=== PATIENT | female | born 1955 | race Caucasian/White ===

== ENCOUNTER → 2020-01-11 10:28 | Outpatient (BNVA) | payer OTHER, SELFPAY | PROVIDERS: PCP Internal Medicine; Referring Provider Internal Medicine; Visit Provider Internal Medicine Pulmonary Disease | DX: Z76.89 Persons encountering health services in other specified circumstances (principal) | CPT/HCPCS: 90686 ==

== ENCOUNTER → 2020-01-23 16:24 | Outpatient (BNVA) | payer OTHER, SELFPAY | PROVIDERS: PCP Internal Medicine; Referring Provider Internal Medicine; Visit Provider Surgery | DX: Z76.89 Persons encountering health services in other specified circumstances (principal) ==

== ENCOUNTER 2020-01-28 09:43 | Outpatient (REF) | payer OTHER, SELFPAY ==
--- NOTE | 2020-01-28 09:48 | CT_ITS ---
EXAMINATION: CT CHEST WITHOUT CONTRAST CLINICAL INFORMATION: Pulmonary nodule. COMPARISON: None. TECHNIQUE: Multidetector volumetric CT imaging of the chest was done. Axial MIP volume rendering provided. Sagittal and coronal reformatted images were obtained. This CT examination was performed using dose optimization techniques as appropriate, variously including the following: *Automated exposure control *Adjustment of mA and/or kV according to patient size (this includes techniques or standardized protocols for targeted exams where dose is matched to indication/reason for exam; i.e. extremities or head) *Use of iterative reconstruction technique DLP: 94 mGy-cm FINDINGS: INSTRUCTOR NURSE: Unremarkable chest insurance risk analyst exam. LUNGS: Previously visualized right lower lobe tubular endobronchial 4 mm lesion image 329/7, stable. Right middle lobe 2 mm nodule, likely endobronchial on image 358/7 is stable. There are several additional small nodules visualized. A 3 mm calcified granuloma right lower lobe posterior basal segment image 537/7, a 4 mm nodule right lower lobe image 417/7, a 4 mm intrabronchial nodule left lower lobe image 381/7 appears new. A 2 mm nodule right lower lobe anterobasal segment image 377/7 is new. Mild atelectatic changes right middle lobe image 44/4, lingula image 42/4 and left anterior medial basal segment lower lobe are stable. MEDIASTINUM: The thyroid lobes are symmetrical and normal. The central trachea and the bronchi are widely patent. The coronary arteries are calcified. The heart size is normal. No pericardial effusion seen. The central trachea and bronchi are widely patent. PLEURA: There is no pleural effusion. No pleural mass or thickening. AXILLA: There are small benign lymph nodes seen in the axilla. UPPER ABDOMEN: Visualized liver, spleen, pancreas and bilateral adrenal glands are unremarkable. OSSEOUS STRUCTURES: No lytic or sclerotic process seen. There is mild ventral spondylosis. IMPRESSION: Stable previously seen endobronchial tubular lesion right lower lobe and right middle lobe. New lesions in the right lower lobe and intrabronchial lesion left lower lobe. No abnormal mediastinal adenopathy. Stable atelectasis.
== END 2020-01-28 09:44 | disposition home or self-care (01) ==
LOC: HO.CT 09:43
PROVIDERS: PCP Internal Medicine; Visit Provider Internal Medicine
DX: J98.4 Other disorders of lung (principal)
CPT/HCPCS: 71250

== ENCOUNTER → 2020-02-15 13:26 | Outpatient (BNVA) | payer OTHER, SELFPAY | PROVIDERS: Visit Provider Internal Medicine Pulmonary Disease | DX: Z76.89 Persons encountering health services in other specified circumstances (principal) ==

== ENCOUNTER → 2020-02-25 10:32 | Outpatient (REF) | payer OTHER, SELFPAY ==
--- NOTE | 2020-02-25 10:40 | CA_ITS ---
Transthoracic Echocardiogram Patient (Last, First, Middle): Chantel Hamilton J Gender: Female Date of : 1955 Age: 64 Procedure Date: 02/25/2020 Procedure Type: Transthoracic Echocardiogram Location: OP Height: 167.64 cm Weight: 54.43 kg BSA: 1.61 m2 Heart Rate: bpm BP: 102 / 58 mmHg Merchandise Associate: DSG Referring MD: Harry Coon MD Symptoms: PERICARDIAL EFFUSION Study Quality: Good ECG Rhythm: Sinus Conclusions: - The left ventricular systolic function is normal. The visually estimated ejection fraction is between 60-65%. - Small pericardial effusion, most prominent over the right ventricle. Findings Left Ventricle Normal left ventricular cavity size. The left ventricular systolic function is normal. The visually estimated ejection fraction is between 60-65%. There is no evidence of regional wall motion abnormalities. Right Ventricle Normal right ventricular cavity size and systolic function. Tricuspid Valve There is mild tricuspid valve regurgitation. The pulmonary artery systolic pressure is normal. Pericardium/Pleural There are no definitive echocardiographic findings of tamponade physiology. Small pericardial effusion, most prominent over the right ventricle. Prior Study Comparison No significant change compared to prior study dated: 10/01/2019. Measurements Tricuspid Valve TR Pk Brian: 2.52 TR Pk Grad: 25.00 RA Press: 3.00 RVSP: 28.00 Updated in Other Vendor System with Status of Final Harry Coon MD electronically signed on 02/25/2020 4:58:35 PM with status of Final
== END ==
LOC: HO.CARD 10:32
PROVIDERS: PCP Internal Medicine; Visit Provider Internal Medicine
DX: I31.3 Pericardial effusion (noninflammatory) (principal)
CPT/HCPCS: 93308

== ENCOUNTER 2020-02-29 07:26 | Outpatient (REF) | payer OTHER, SELFPAY ==
[2020-02-29 08:30] VITALS: BP 135/78; PULSE 82; RESP 16; TEMP 36.8; O2SAT 99
[2020-02-29 08:31] VITALS: BMI 19.2
[2020-02-29 09:30] VITALS: BP 134/60; PULSE 71; RESP 16; O2SAT 99
--- NOTE | 2020-02-29 09:35 | P.HPSUR_ITS ---
Pre-Procedural Eval Section B Chief Complaint: Skin Lesion of Face and Right Ear Details of Present Illness: Tender lesion of left evangelical and indeterminate lesion of right pinna Relevant Family History (Specify if Yes): No Relevant Social History: None Present Medications: see Short Stay Collaborative assessment Medical History: No relevant PMH History of Previous Operations: No relevant previous surgery Allergies: Allergies Allergy/AdvReac Type Severity Reaction Status Date / Time acetaminophen [Percocet] Allergy Unknown itchy Verified 02/15/20 13:28 oxycodone [Percocet] Allergy Unknown Unknown Verified 02/15/20 13:28 Review of Systems Sugical H&P ROS: Negative: Constitution, Cardiovascular, Respiratory, Neurological, Psychiatric, Hem-Onc, Allergic/Immunologic, Gastrointestinal, Genitourinary, Musculoskeletal, Endocrine and Eyes/Ears/Nose/Throat and Yes, Specify: Integumentary (Lesions for excision today) Exam Surgical H&P Exam: Normal: HEENT, Normal: Heart and Normal: Extremities, Not Evaluated: Lungs and Not Evaluated: Abdomen and Significant Findings: Skin (Lesions left evangelical and right pinna) Plan Diagnosis/Plan: Unchanged Patient has been examined and remains a candidate for the planned procedure
--- NOTE | 2020-02-29 09:37 | W.PM.OPN ---
Operative Note Operative Note Date of Service: 02/29/20 Narrative: Preoperative diagnosis: Irritated lesion left hoahaoism and indeterminate lesion right pinna postoperative diagnosis: Same Procedure: Excision lesions of left hoahaoism and right pinna Anesthesia: Local 1% lidocaine with epinephrine 5 cc Estimated blood loss: 5 cc Specimens: Lesions of left hoahaoism and right pinna Immediate complications: None Indications: This is a 64-year-old female who has developed an indeterminate pigmented lesion along the mid aspect of the right pinna. She also has a tender lesion of the left hoahaoism. Excision is planned. She is familiar with the technique and risks of infection bleeding and scarring. Procedure in detail: Time-out procedure was performed. She was positioned supine with her head initially turned toward the right. The hair overlying and surrounding the lesion on the left hoahaoism was trimmed with clippers and the area was prepped with Betadine solution and draped sterilely. Skin and subcutaneous tissues were infiltrated with local anesthetic. An elliptical incision was made surrounding the lesion including a narrow margin of normal-appearing skin. The incision was carried into the superficial subcutaneous tissues and the lesion was excised at that level. The wound was closed with interrupted sutures of 6 0 nylon. Final incision length was 1.8 cm. Bacitracin ointment and a dry sterile dressing were applied. She then turned to the left and the right pinna was prepped with Betadine solution and was draped sterilely. Skin and subcutaneous tissues underlying and surrounding the lesion at the margin of the yet pinna were infiltrated with local anesthetic. The lesion was excised elliptically with a narrow margin of normal-appearing skin. Excision was carried to the it superficial subcutaneous tissues and the lesion was excised at that level. The wound was closed with interrupted sutures of 6 0 nylon and bacitracin and a light adhesive dressing were applied. Final incision length was 0.7 cm. She tolerated the procedure well. She will keep the areas dry and covered for 24 hours, will use acetaminophen as needed for pain, and will follow up in the office as scheduled on March 11 for suture removal. If desired, she will call the office for an appointment to be seen on March 05 for removal of the sutures in pinna. She understands that the sutures in the left hoahaoism area would not be removed at that time.
== END 2020-02-29 07:27 | disposition home or self-care (01) ==
LOC: HO.MS 07:26
PROVIDERS: PCP Internal Medicine; Visit Provider Surgery
DX: D23.21 Other benign neoplasm of skin of right ear and external auricular canal (principal); L98.9 Disorder of the skin and subcutaneous tissue, unspecified
CPT/HCPCS: 11442; 11440; 88305

== ENCOUNTER → 2020-03-03 13:54 | Outpatient (BNVA) | payer OTHER, SELFPAY | PROVIDERS: PCP Internal Medicine; Referring Provider Internal Medicine; Visit Provider Internal Medicine | DX: Z76.89 Persons encountering health services in other specified circumstances (principal) ==

== ENCOUNTER → 2020-03-11 15:56 | Outpatient (BNVA) | payer OTHER, SELFPAY | PROVIDERS: PCP Internal Medicine; Referring Provider Internal Medicine; Visit Provider Surgery | DX: Z76.89 Persons encountering health services in other specified circumstances (principal) ==

== ENCOUNTER 2020-06-27 12:55 | Outpatient (REF) | payer OTHER, SELFPAY ==
--- NOTE | ~2020-06-27 | CT_ITS ---
EXAMINATION: CT CHEST WITHOUT CONTRAST CLINICAL INFORMATION: Pulmonary nodule. COMPARISON: None TECHNIQUE: Multidetector volumetric CT imaging of the chest was done. Axial MIP volume rendering provided. Sagittal and coronal reformatted images were obtained. This CT examination was performed using dose optimization techniques as appropriate, variously including the following: *Automated exposure control *Adjustment of mA and/or kV according to patient size (this includes techniques or standardized protocols for targeted exams where dose is matched to indication/reason for exam; i.e. extremities or head) *Use of iterative reconstruction technique DLP: 95 mGy-cm FINDINGS: BEEF TRIMMER: Unremarkable. LUNGS: The lungs are well-expanded and clear. There is a 2 mm pleural-based nodule left upper lobe axial image 86/7, 2 mm endobronchial lesion right lower lobe image 292/7, 2 mm nodule right middle lobe axial image 262/7, 2 mm nodule right middle lobe image 315/7, 4 mm nodule right lower lobe axial image 370/7, triangular density in the lingula likely part of atelectasis axial image 371/7, 4 mm nodule right lower lobe axial image 386/7, focal atelectatic changes right middle lobe laterally, 3 mm calcified nodule right lower lobe axial image 468/7. There are no new nodules visualized. No consolidation, mass or ground-glass density. MEDIASTINUM: The thyroid lobes are symmetric and normal. The central trachea and bronchi are widely patent. Heart size and the great vessels are normal caliber. There are no abnormal size mediastinal lymph nodes. There are coronary artery calcifications present. There is no pericardial effusion seen. PLEURA: There is no pleural effusion. No pleural mass or thickening. AXILLA: There are small shotty lymph nodes seen in the axilla. The chest wall appears unremarkable. UPPER ABDOMEN: Visualized liver, spleen, pancreas, and bilateral adrenal glands are unremarkable. OSSEOUS STRUCTURES: There is no lytic or sclerotic process seen. There is mild ventral spondylosis. CT/CT chest wo con IMPRESSION: Multiple bilateral pulmonary nodules, some of the nodules are endobronchial and are stable. There are small calcified nodule right lower lobe, stable. No new pulmonary nodules seen. No abnormal mediastinal adenopathy. Lingular and right middle lobe atelectasis is stable.
== END 2020-06-27 12:56 | disposition home or self-care (01) ==
LOC: HO.CT 12:55
PROVIDERS: PCP Internal Medicine; Visit Provider Internal Medicine Pulmonary Disease
DX: R91.8 Other nonspecific abnormal finding of lung field (principal)
CPT/HCPCS: 71250

== ENCOUNTER → 2020-08-27 16:13 | Outpatient (BNVA) | payer OTHER, SELFPAY | PROVIDERS: PCP Internal Medicine; Visit Provider Internal Medicine Pulmonary Disease ==

== ENCOUNTER → 2020-10-27 14:38 | Outpatient (BNVA) | payer OTHER, SELFPAY | PROVIDERS: PCP Internal Medicine; Referring Provider Internal Medicine; Visit Provider Physician Assistant ==

== ENCOUNTER 2020-10-31 11:36 | Outpatient (REF) | payer OTHER, SELFPAY ==
[2020-10-31 12:21] LABS: MANUAL DIFF FLAG NO
[2020-10-31 12:31] LABS: Basophils Percent Auto 0.8 % (0-2); Eosinophils Absolute Auto 0.1 X10*3/uL (0.0-0.4); Eosinophils Percent Auto 2.5 % (0-4); Hematocrit 38.3 % (37-47); Hemoglobin 12.9 g/dl (12.0-16.0); Imm Gran Abs Auto 0.02 X10*3/uL (0.00-0.03); Imm Gran Pct Auto 0.6 % (0.0-0.4); Lymphocytes Absolute Auto 1.1 X10*3/uL (1.2-4.9); Lymphocytes Percent Auto 29.2 % (20-40); Mean Corpuscular HGB Conc 33.7 g/dl (31.0-35.0); Mean Corpuscular Hemoglobin 31.3 pg (27.0-33.0); Mean Platelet Volume 9.3 fL (9.4-12.3); Monocytes Absolute Auto 0.4 X10*3/uL (0.1-1.2); Monocytes Percent Auto 9.9 % (2-11); Neutrophils Absolute Auto 2.1 X10*3/uL (2.0-8.3); Platelet Count 245 X10*3/uL (160-400); Red Blood Count 4.12 X10*6/uL (4.20-5.50); Red Cell Distribution Width 12.7 % (11.0-16.0); White Blood Count 3.6 X10*3/uL (4.8-10.8)
[2020-10-31 12:43] LABS: Alanine Aminotransferase 14 U/L (0-31); Albumin Level 4.8 g/dL (3.5-5.0); Alkaline Phosphatase 81 U/L (39-117); Anion Gap 12 (12-20); Aspartate Amino Transferase 17 U/L (5-31); Bilirubin Total 0.7 mg/dL (0.0-1.0); Blood Urea Nitrogen 17 mg/dL (9-16); Calcium 10.1 mg/dL (8.4-10.2); Carbon Dioxide 24 mmol/L (22-29); Chloride 109 mmol/L (96-108); Cholesterol 227 mg/dL; Estimated Glomerular Filt Rate 56; Glucose Random 98 mg/dL (60-115); HDL Cholesterol 62 mg/dL; LDL Cholesterol Calculated 146 mg/dl; Potassium 4.9 mmol/L (3.3-5.1); Sodium 140 mmol/L (135-145); Triglycerides 96 mg/dL
[2020-10-31 12:59] LABS: Free T4 (Free Thyroxine) 0.89 ng/dL (0.71-1.85); Thyroid Stimulating Hormone 1.12 uIU/mL (0.32-4.0); Vitamin D 25-OH Total 28.1 ng/mL (>30)
[2020-10-31 13:29] LABS: Vitamin B12 263 pg/mL (200-900)
== END 2020-10-31 11:37 | disposition home or self-care (01) ==
LOC: HO.LAB 11:36
PROVIDERS: Physician Assistant; PCP Internal Medicine; Visit Provider Internal Medicine
DX: K59.09 Other constipation (principal); K62.5 Hemorrhage of anus and rectum; E78.00 Pure hypercholesterolemia, unspecified
CPT/HCPCS: 36415; 80053; 80061; 82306; 82607; 82746; 84439; 84443; 85025

== ENCOUNTER 2020-12-09 10:56 | Day surgery (SDC) | payer OTHER, SELFPAY ==
[2020-12-09 11:55] VITALS: BP 124/60; PULSE 65; RESP 16; TEMP 36; O2SAT 100; BMI 19.0
--- NOTE | 2020-12-09 11:59 | MHC.SHP ---
Pre-Procedural Eval Section A Date of Service: 12/09/20 The patient is an INPATIENT: No The History & Physical has been completed within 30 days and I have reviewed it.: No Section B Chief Complaint: reflux disease,change in bowel habit Details of Present Illness: Colon cancer screening, hx of colon polyps, GERD, dysphagia, history of gastric ulcers Relevant Family History (Specify if Yes): No Relevant Social History: None Present Medications: see Short Stay Collaborative assessment Medical History: Significant History (Blind left eye Breast cancer Carotid stenosis, right Degenerative disc disease, cervical GERD (gastroesophageal reflux disease) Hypercholesterolemia Left renal stone Migraine Pericardial effusion Thyroid nodule) History of Previous Operations: Relevant previous surgery/procedure and date(s) (H/O lumpectomy H/O lymph node biopsy History of lobectomy of thyroid History of shoulder surgery History of tonsillectomy History of vaginal hysterectomy) Allergies: Allergies Allergy/AdvReac Type Severity Reaction Status Date / Time acetaminophen [Percocet] Allergy Unknown itchy Verified 10/27/20 15:00 oxycodone [Percocet] Allergy Unknown Unknown Verified 10/27/20 15:00 Review of Systems Sugical H&P ROS: Negative: Constitution, Cardiovascular and Respiratory and Yes, Specify: Gastrointestinal (GERD, dysphagia) Exam Surgical H&P Exam: Normal: Heart, Normal: Lungs, Normal: Extremities and Normal: Abdomen Plan Diagnosis/Plan: Unchanged I have reviewed the history and physical and performed a pertinent physical examination on my patient. No changes have occurred unless specified.
--- NOTE | 2020-12-09 13:09 | PM.OP ---
Brief Operative Note Date of Service: 12/09/20 Pre-op diagnosis: GERD, dysphagia, hx of , colon cancer screening, chronic constipation Post-op diagnosis: other (GERD, dysphagia, gastritis, gastric ulcer, diverticulosis) Procedure: FLEXIBLE TRANSORAL UPPER GASTROINTESTINAL ENDOSCOPY WITH BIOPSIES AND ESOPHAGEAL BALLOON DILATION AND COLONOSCOPY TILL CECUM UPPER ENDOSCOPY Consent: Indications for the procedure and potential complications of bleeding, perforation, reaction to medications and missed diagnosis were discussed with the patient and informed consent was obtained. Instrument: Olympus GIF H 190 mid size upper endoscope Monitoring: Vital signs and clinical assessment, continuous EKG monitoring, Pulse oximetry, Carbon Dioxide monitoring and blood pressure monitoring were done throughout the procedure. Procedure: The patient was placed in the left lateral decubitis position and pre-procedure medications were administered and a bite block was placed. The endoscope was inserted into the mouth and advanced under direct vision to the third part of duodenum. A careful inspection was made as the upper endoscope was withdrawn including a retroflexed examination of the proximal stomach; Findings and interventions are described below. Findings: Larynx: Normal Esophagus: Tortuous esophagus with increased tertiary contractions without stricture or ring. GE junction at 38 cms. No esophagitis or Worthy's. Esophageal balloon dilation was performed with 18 & 19 mm CRE balloon x 60 seconds at each level Stomach: A 5-6 mm chronic appearing ulcer in the antrum along the lesser curvature - biopsied. Mild gastric erythema with multiple chronic appearing antral erosion - Biopsies were obtained. Grade 2 flap valve on retroflexed examination of the cardia. Duodenum: Normal bulb and descending duodenum. Biopsies were obtained from 3rd part of duodenum to check for celiac sprue Intervention: Biopsies and balloon dilation to 19 mm (54 F) as noted above COLONOSCOPY PROCEDURE NOTE Consent: Indications for the procedure and potential complications of bleeding, perforation, reaction to medications and missed diagnosis were discussed with the patient and informed consent was obtained. Instrument: Olympus PCF H 190 L variable stiffness pediatric colonoscope Monitoring: Vital signs and clinical assessment, intermittent blood pressure monitoring, continuous EKG monitoring, Pulse oximetry and Carbon Dioxide monitoring were done throughout the procedure. Colon withdrawl time was 20 minutes. Procedure: The patient was placed in the left lateral decubitis position and pre-procedure medications were administered. After a digital rectal examination of the ano-rectum, the video colonoscope was inserted into the rectum and advanced through the colon to the cecum. The colonoscope was slowly withdrawn in a retrograde panoramic fashion and the colon mucosa was carefully examined including a retroflexed view of the rectum. Findings and interventions are described below. Procedure Difficulty: Colon was long and tortuous and there was some loop formation - no manuvers were required Findings: Terminal Ileum: Not evaluated Cecum: Normal Ascending Colon: Normal Transverse Colon: Normal Descending Colon: Normal Sigmoid Colon: Moderate diverticulosis Rectum: Normal Ano-rectum: Holly-anal skin tags Colon preparation: Good after copious irrigation Impression and Post Procedure Diagnosis: Endoscopy Findings: ESOPHAGUS: Tortuous esophagus with increased tertiary contractions without stricture or ring - dysphagia likely due to esophageal motility disorder. Empiric esophageal balloon dilation was performed with 18 & 19 mm CRE balloon x 60 seconds at each level STOMACH: A 5-6 mm chronic appearing ulcer in the antrum along the lesser curvature - biopsied. Recurrent gastric ulcer likely due to Ibuprofen use. Mild gastric erythema with multiple chronic appearing antral erosion - Biopsies were obtained. Colonoscopy Findings: No polyps were detected Moderate diverticulosis seen in the sigmoid colon Plan: Await pathology results Patient has an appointment on 01/05/21 in the GI Clinic with K[facility] Escamilla . Repeat Colonoscopy in 5 years due to hx of adenomatous colon polyps. Above findings were reviewed with the patient and diverticulosis handout was given in the discharge area. Patient was advised to stop Ibuprofen and increase Omeprazole to twice daily for 3 months. Surgeon: Enrique Evans MD Anesthesia: MAC (Dr Barajas) Was an Linen Supply Load Builder used for this Procedure?: Yes Linen Supply Load Builder: Drake Sesay Estimated blood loss (mL): 0 Pathology: other (A- SMALL BOWEL BXS R/O CELIAC B- GASTRIC ULCER BXS C- GASTRIC ANTRUM BXS R/O H. PYLORI) Condition: stable Disposition: PACU
[2020-12-09 13:50] VITALS: BP 97/53; PULSE 71; RESP 16; TEMP 36.2; O2SAT 98
--- NOTE | 2020-12-09 13:50 | W.PM.OPN ---
Operative Note Operative Note Date of Service: 12/09/20 Narrative: Pre-op diagnosis:?GERD, dysphagia, hx of , colon cancer screening, chronic constipation Post-op diagnosis:?other (GERD, dysphagia, gastritis, gastric ulcer, diverticulosis) Procedure:? FLEXIBLE TRANSORAL UPPER GASTROINTESTINAL ENDOSCOPY WITH BIOPSIES AND ESOPHAGEAL BALLOON DILATION AND COLONOSCOPY TILL CECUM UPPER ENDOSCOPY Consent:?Indications for the procedure and potential complications of bleeding, perforation, reaction to medications and missed diagnosis were discussed with the patient and informed consent was obtained. Instrument:?Olympus GIF H 190 mid size upper endoscope Monitoring: Vital signs and clinical assessment, continuous EKG monitoring, Pulse oximetry, Carbon Dioxide monitoring and blood pressure monitoring were done throughout the procedure. Procedure:?The patient was placed in the left lateral decubitis position and pre-procedure medications were administered and a bite block was placed. The endoscope was inserted into the mouth and advanced under direct vision to the third part of duodenum. A careful inspection was made as the upper endoscope was withdrawn including a retroflexed examination of the proximal stomach; Findings and interventions are described below. Findings: Larynx:??Normal Esophagus:?Tortuous esophagus with increased tertiary contractions without stricture or ring.? GE junction at 38 cms.? No esophagitis or Worthy's. Esophageal balloon dilation was performed with 18 & 19 mm CRE balloon x 60 seconds at each level Stomach:?A 5-6 mm chronic appearing ulcer in the antrum along the lesser curvature - biopsied.? Mild gastric erythema with multiple chronic appearing antral erosion - Biopsies were obtained. Grade 2 flap valve on retroflexed examination of the cardia. Duodenum:?Normal bulb and descending duodenum.? Biopsies were obtained from 3rd part of duodenum to check for celiac sprue Intervention:?Biopsies and balloon dilation to 19 mm (54 F) as noted above COLONOSCOPY PROCEDURE NOTE Consent:?Indications for the procedure and potential complications of bleeding, perforation, reaction to medications and missed diagnosis were discussed with the patient and informed consent was obtained. Instrument:?Olympus PCF H 190 L variable stiffness pediatric colonoscope Monitoring:?Vital signs and clinical assessment, intermittent blood pressure monitoring, continuous EKG monitoring, Pulse oximetry and Carbon Dioxide monitoring were done throughout the procedure. Colon withdrawl time was 20 minutes. Procedure:?The patient was placed in the left lateral decubitis position and pre-procedure medications were administered. After a digital rectal examination of the ano-rectum, the video colonoscope was inserted into the rectum and advanced through the colon to the cecum. The colonoscope was slowly withdrawn in a retrograde panoramic fashion and the colon mucosa was carefully examined including a retroflexed view of the rectum. Findings and interventions are described below. Procedure Difficulty:?Colon was long and tortuous and there was some loop formation - no manuvers were required Findings: Terminal Ileum: Not evaluated Cecum:? Normal Ascending Colon:??Normal Transverse Colon:??Normal Descending Colon:? Normal Sigmoid Colon:??Moderate diverticulosis Rectum:??Normal Ano-rectum:? Holly-anal skin tags Colon preparation:? Good after copious irrigation Impression and Post Procedure Diagnosis: Endoscopy Findings: ESOPHAGUS: Tortuous esophagus with increased tertiary contractions without stricture or ring - dysphagia likely due to esophageal motility disorder. Empiric esophageal balloon dilation was performed with 18 & 19 mm CRE balloon x 60 seconds at each level STOMACH:? A 5-6 mm chronic appearing ulcer in the antrum along the lesser curvature - biopsied.? Recurrent gastric ulcer likely due to Ibuprofen use. Mild gastric erythema with multiple chronic appearing antral erosion - Biopsies were obtained. Colonoscopy Findings: No polyps were detected Moderate diverticulosis seen in the sigmoid colon Plan: Await pathology results Patient has an appointment on 01/05/21 in the GI Clinic with [facility] Escamilla . Repeat Colonoscopy in 5 years due to hx of adenomatous colon polyps. Above findings were reviewed with the patient and? diverticulosis handout was given in the discharge area.? Patient was advised to stop Ibuprofen and increase Omeprazole to twice daily for 3 months. Surgeon:?Enrique Evans MD Anesthesia:?MAC (Dr Barajas) Was an Hydraulic Specialist used for this Procedure?:?Yes Hydraulic Specialist:?Drake Sesay Estimated blood loss (mL):?0 Pathology:?other (A- SMALL BOWEL BXS? R/O CELIAC? B- GASTRIC ULCER BXS? C- GASTRIC ANTRUM BXS ? R/O H. PYLORI) Condition:?stable Disposition:?PACU
[2020-12-09 14:05] VITALS: BP 107/56; PULSE 61; RESP 16; O2SAT 99
[2020-12-09 14:14] VITALS: BP 128/64; PULSE 56; RESP 16; TEMP 36.3; O2SAT 99
== END 2020-12-09 14:34 ==
LOC: HO.SSS 10:57
PROVIDERS: PCP Internal Medicine; Visit Provider Internal Medicine Gastroenterology
PROC: (CPT 45378; principal; 2020-12-09 12:10)
DX: Z12.11 Encounter for screening for malignant neoplasm of colon (principal); K57.30 Diverticulosis of large intestine without perforation or abscess without bleeding; K56.2 Volvulus; K64.4 Residual hemorrhoidal skin tags; K59.09 Other constipation; R13.10 Dysphagia, unspecified; K29.70 Gastritis, unspecified, without bleeding; K25.9 Gastric ulcer, unspecified as acute or chronic, without hemorrhage or perforation; K21.9 Gastro-esophageal reflux disease without esophagitis; Z79.899 Other long term (current) drug therapy
CPT/HCPCS: 45378; 43239; 43249; 88305; 88342; C1726

== ENCOUNTER → 2021-01-05 14:14 | Outpatient (BNVA) | payer MEDICARE, SELFPAY | PROVIDERS: PCP Internal Medicine; Visit Provider Physician Assistant | DX: Z13.89 Encounter for screening for other disorder (principal) | CPT/HCPCS: Q3014 ==

== ENCOUNTER → 2021-02-13 10:01 | Outpatient (BNVA) | payer MEDICARE, SELFPAY | PROVIDERS: PCP Internal Medicine; Referring Provider Internal Medicine; Visit Provider Surgery | DX: C50.919 Malignant neoplasm of unspecified site of unspecified female breast (principal) | CPT/HCPCS: 99212 ==

== ENCOUNTER → 2021-02-20 10:29 | Outpatient (REF) | payer MEDICARE, SELFPAY ==
--- NOTE | 2021-02-20 10:41 | HM_ITS ---
Conclusion: 1. Patient was monitored for total period of 3 days. 2. Baseline rhythm is normal sinus rhythm with average heart rate 69 beats per minute 3. No significant pauses or bradycardia noted 4. Multiple short burst of supraventricular ectopics longest however lasting 19 beats at 140-150 beats per minute 5. No sustained atrial fibrillation 6. Total of 1592 PACs accounting for 0.54% of total burden accounted for occasional PACs 7. No patient reported symptoms MTDD
--- NOTE | 2021-02-20 10:41 | CA_ITS ---
Transthoracic Echocardiogram Patient (Last, First, Middle): Chantel Hamilton J Gender: Female Date of : 1955 Age: 65 Procedure Date: 02/20/2021 Procedure Type: Transthoracic Echocardiogram Location: OP Height: 167.64 cm Weight: 53.07 kg BSA: 1.59 m2 Heart Rate: bpm BP: 101 / 61 mmHg Front End Driver: DSGuadalupe Referring MD: Harry Coon MD Symptoms: I31.3 - Pericardial effusion (noninflammatory) Study Quality: Fair ECG Rhythm: Sinus Conclusions: - The left ventricular systolic function is normal. The calculated ejection fraction is 61% by biplane method. - No obvious valvular pathology seen on this study. Findings Left Ventricle Normal left ventricular cavity size. There is normal left ventricular wall thickness. The left ventricular systolic function is normal. The calculated ejection fraction is 61% by biplane method. There is no evidence of regional wall motion abnormalities. Diastolic function is normal for age. Right Ventricle Normal right ventricular cavity size and systolic function. Atria Both atria are normal in size. Aortic Valve There is a normal trileaflet aortic valve. There is no aortic valve stenosis. There is trace (trivial) aortic valve regurgitation. Mitral Valve The mitral valve appears normal. There is trace mitral valve regurgitation. There is no mitral valve stenosis. Pulmonic Valve The pulmonic valve was not well visualized. Tricuspid Valve Normal tricuspid valve structure. There is mild tricuspid valve regurgitation. The pulmonary artery systolic pressure is normal. Great Vessels The aortic annulus and asc aorta are normal in size. Venous The inferior vena cava is normal in size and collapses greater than 50% with inspiration. Pericardium/Pleural There are no definitive echocardiographic findings of tamponade physiology. Small pericardial effusion, most prominent posteriorly and over right ventricle. Prior Study Comparison No significant change compared to prior study dated: 02/25/2020. Recommendations, Care & Conclusions No obvious valvular pathology seen on this study. Measurements 2D Linear Measurements IVSd: 0.78 0.6-0.9/0.6-1.0 cm LVIDd: 4.16 3.9-5.3/4.2-5.9 cm LVIDd Index: 2.62 2.4-3.2/2.2-3.1 cm/m2 LVIDs: 2.66 2.0-3.6 cm LVPWd: 0.88 0.7-1.1 cm Ao Root: 3.20 2.1-3.5 cm LA Diam: 2.40 2.7-3.8/3.0-4.0 cm LAIDs Index: 1.51 1.5-2.3 cm/m2 LV Mass: 130.47 67-162/88-224 g LV Mass Index: 82.06 43-95/49-115 g/m2 LVOT Diam: 1.90 3.0+(-)1.3 cm 2D Systolic Function EF 4C: 56.00 >55% EF 2C: 61.20 >55% EF BiP: 61.30 >55% Mitral Valve MV Pk E: 0.86 MV PK A: 0.56 MV Decel Time: 186.00 E/A: 1.50 PHT: 55.00 MVA PHT: 4.00 Decel Bullitt: 4.64 Aortic Valve AoV Pk Brian: 1.11 AoV Pk Grad: 5.00 LVOT LVOT Pk Brian: 0.88 LVOT Mn Brian: 0.58 LVOT VTI: 0.18 LVOT Pk Grad: 3.00 LVOT Mn Grad: 2.00 LVOT Diam: 1.90 LVOT Area: 2.84 Diastolic Function MV Pk E: 0.86 MV Pk A: 0.56 E/A: 1.50 Right Ventricle TAPSE (mm): 2.04 Tricuspid Valve TR Pk Brian: 2.27 TR Pk Grad: 21.00 RVSP: 24.00 Great Vessels Aorta Ao Root-2D: 3.20 2.0-3.7 cm Ao Asc: 2.70 2.1-3.4 cm Ao Arch: 2.70 Updated in Other Vendor System with Status of Final Harry Coon MD electronically signed on 02/21/2021 1:46:02 PM with status of Final
== END ==
LOC: HO.CARD 10:29
PROVIDERS: PCP Internal Medicine; Visit Provider Internal Medicine
DX: R00.2 Palpitations (principal); I31.3 Pericardial effusion (noninflammatory)
CPT/HCPCS: 93242; 93306

== ENCOUNTER → 2021-03-26 14:41 | Outpatient (BNVA) | payer MEDICARE, SELFPAY | PROVIDERS: PCP Internal Medicine; Visit Provider Internal Medicine Pulmonary Disease | DX: J43.9 Emphysema, unspecified (principal); R91.8 Other nonspecific abnormal finding of lung field | CPT/HCPCS: 99212 ==

== ENCOUNTER → 2021-04-06 12:28 | Outpatient (BNVA) | payer MEDICARE, SELFPAY | PROVIDERS: PCP Internal Medicine; Referring Provider Internal Medicine; Visit Provider Internal Medicine | DX: I31.3 Pericardial effusion (noninflammatory) (principal); I49.1 Atrial premature depolarization; R07.2 Precordial pain | CPT/HCPCS: 93005; 99212 ==

== ENCOUNTER 2021-06-12 09:55 | Outpatient (REF) | payer MEDICARE, SELFPAY ==
[2021-06-12 10:22] LABS: MANUAL DIFF FLAG NO
[2021-06-12 10:51] LABS: Basophils Percent Auto 0.9 % (0-2); Eosinophils Absolute Auto 0.1 X10*3/uL (0.0-0.4); Eosinophils Percent Auto 2.8 % (0-4); Hematocrit 37.3 % (37.0-47.0); Hemoglobin 12.3 g/dl (12.0-16.0); Imm Gran Abs Auto 0.01 X10*3/uL (0.00-0.03); Imm Gran Pct Auto 0.3 % (0.0-0.4); Lymphocytes Absolute Auto 1.1 X10*3/uL (1.2-4.9); Lymphocytes Percent Auto 32.5 % (20-40); Mean Corpuscular Hemoglobin 30.7 pg (27.0-33.0); Mean Platelet Volume 8.9 fL (9.4-12.3); Monocytes Absolute Auto 0.4 X10*3/uL (0.1-1.2); Monocytes Percent Auto 11.4 % (2-11); Neutrophils Absolute Auto 1.8 x10*3/uL (2.0-8.3); Neutrophils Percent Auto 52.1 % (45-73); Platelet Count 233 X10*3/uL (160-400); Red Blood Count 4.01 X10*6/uL (4.20-5.50); Red Cell Distribution Width 12.6 % (11.0-16.0); White Blood Count 3.5 X10*3/uL (4.8-10.8)
[2021-06-12 11:12] LABS: Anion Gap 10 (12-20); Blood Urea Nitrogen 15 mg/dL (9-16); Calcium 9.8 mg/dL (8.4-10.2); Carbon Dioxide 25 mmol/L (22-29); Chloride 110 mmol/L (96-108); Estimated Glomerular Filt Rate > 60; Glucose Random 83 mg/dL (60-115); Potassium 4.3 mmol/L (3.3-5.1); Sodium 141 mmol/L (135-145)
[2021-06-12 11:28] LABS: Thyroid Stimulating Hormone 1.88 uIU/mL (0.32-4.0)
== END 2021-06-12 09:56 | disposition home or self-care (01) ==
LOC: HO.LAB 09:55
PROVIDERS: PCP Internal Medicine; Visit Provider Internal Medicine
DX: R07.2 Precordial pain (principal); E78.00 Pure hypercholesterolemia, unspecified
CPT/HCPCS: 36415; 80048; 84443; 85025

== ENCOUNTER 2021-07-08 09:53 | Outpatient (REF) | payer MEDICARE, SELFPAY ==
--- NOTE | ~2021-07-08 | CT_ITS ---
EXAMINATION: CT CHEST WITHOUT CONTRAST CLINICAL INFORMATION: Pulmonary nodule COMPARISON: CT chest 06/27/2020 TECHNIQUE: Multidetector volumetric CT imaging of the chest was done. Axial MIP volume rendering provided. Sagittal and coronal reformatted images were obtained. This CT examination was performed using dose optimization techniques as appropriate, variously including the following: *Automated exposure control *Adjustment of mA and/or kV according to patient size (this includes techniques or standardized protocols for targeted exams where dose is matched to indication/reason for exam; i.e. 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 LUNGS: The lungs are hyperinflated. There are scattered 1 mm calcifications both upper lobes. Previously seen tumor subpleural nodule left upper lobe is likely thickening along the major fissure at the pleural junction on axial image 110/7, 1 mm endobronchial lesions in the right middle lobe bronchus on axial image 266/7, 2 mm nodule right middle lobe axial image 347/7 1 mm endobronchial nodule left lower lobe axial image 390/7, 4 nodule peripherally based right lower lobe axial image 439/7, and endobronchial 2 mm lesions left lower lobe axial 399/7, 3 and a calcified nodule right lower lobe CP angle image 554/7. Focal atelectatic changes seen in lingula and right middle lobe. MEDIASTINUM: The thyroid lobes are symmetric and normal. The central trachea and the bronchi are widely patent. Heart size and the great vessels are normal caliber. No pericardial effusion seen. There is trace coronary artery calcifications. No abnormal size mediastinal or hilar lymph nodes seen. PLEURA: There is no pleural effusion. No pleural mass or thickening. AXILLA: There are small shotty bilateral axillary lymph nodes. The largest left axillary lymph node is fine in short axis on axial image 14/3. The chest wall is unremarkable. UPPER ABDOMEN: Unremarkable. OSSEOUS STRUCTURES: Visualized liver, spleen, pancreas are unremarkable. No gross bony abnormality seen. CT/CT chest wo con IMPRESSION: Hyperinflated lungs with multiple small pulmonary nodules and one minimally calcified nodules or granuloma and both upper lobes and left lower lobe. No new nodules visualized. Focal atelectatic changes in the lingula and right middle lobe are stable. Recommend follow-up in 18-24 months. Fleischner guidelines were followed.
== END 2021-07-08 09:54 | disposition home or self-care (01) ==
LOC: HO.CT 09:53
PROVIDERS: PCP Internal Medicine; Visit Provider Internal Medicine Pulmonary Disease
DX: R91.8 Other nonspecific abnormal finding of lung field (principal)
CPT/HCPCS: 71250

== ENCOUNTER → 2021-07-15 11:54 | Outpatient (BNVA) | payer MEDICARE, SELFPAY | PROVIDERS: PCP Internal Medicine; Referring Provider Internal Medicine; Visit Provider Physician Assistant | DX: K59.09 Other constipation (principal); K21.9 Gastro-esophageal reflux disease without esophagitis; R13.10 Dysphagia, unspecified | CPT/HCPCS: 99212 ==

== ENCOUNTER → 2021-07-28 13:41 | Outpatient (BNVA) | payer MEDICARE, SELFPAY | PROVIDERS: PCP Internal Medicine; Referring Provider Internal Medicine; Visit Provider Internal Medicine | DX: I31.3 Pericardial effusion (noninflammatory) (principal); I49.1 Atrial premature depolarization; I25.10 Atherosclerotic heart disease of native coronary artery without angina pectoris | CPT/HCPCS: 99212 ==

== ENCOUNTER 2021-10-08 13:04 | Outpatient (REF) | payer MEDICARE, SELFPAY ==
--- NOTE | ~2021-10-08 | XR_ITS ---
EXAMINATION: XR LUMBOSACRAL SPINE CLINICAL INFORMATION: G62.9 - Polyneuropathy, unspecified COMPARISON: Lumbar radiographs 12/12/2015. CT abdomen and pelvis 03/31/2018. TECHNIQUE: Three views of the lumbosacral spine. FINDINGS: Normal lumbar segmentation with 5 nonrib-bearing lumbar vertebrae of normal height and normal lumbar lordosis. There is mild dextrocurvature upper lumbar spine similar to prior exam 2016. No interval vertebral compression, spondylolisthesis, destructive process. No interval disc narrowing or erosive changes. The SI joints and visualized sacrum are unremarkable. XR/XR lumbar spine 2-3V IMPRESSION: -No vertebral compression, spondylolisthesis, or disc narrowing.
[2021-10-08 14:08] LABS: MANUAL DIFF FLAG NO
[2021-10-08 14:21] LABS: Basophils Percent Auto 0.9 % (0-2); Eosinophils Absolute Auto 0.1 X10*3/uL (0.0-0.4); Eosinophils Percent Auto 1.9 % (0-4); Hematocrit 38.2 % (37.0-47.0); Hemoglobin 12.8 g/dl (12.0-16.0); Imm Gran Abs Auto 0.01 X10*3/uL (0.00-0.03); Imm Gran Pct Auto 0.2 % (0.0-0.4); Lymphocytes Absolute Auto 1.1 X10*3/uL (1.2-4.9); Lymphocytes Percent Auto 25.9 % (20-40); Mean Corpuscular HGB Conc 33.5 g/dl (31.0-35.0); Mean Corpuscular Hemoglobin 30.6 pg (27.0-33.0); Mean Corpuscular Volume 91.4 fL (80.0-98.0); Mean Platelet Volume 8.9 fL (9.4-12.3); Monocytes Absolute Auto 0.5 X10*3/uL (0.1-1.2); Monocytes Percent Auto 10.5 % (2-11); Neutrophils Absolute Auto 2.6 x10*3/uL (2.0-8.3); Neutrophils Percent Auto 60.6 % (45-73); Platelet Count 232 X10*3/uL (160-400); Red Blood Count 4.18 X10*6/uL (4.20-5.50); Red Cell Distribution Width 13.1 % (11.0-16.0); White Blood Count 4.3 X10*3/uL (4.8-10.8)
[2021-10-08 14:46] LABS: Alanine Aminotransferase 14 U/L (0-31); Albumin Level 4.8 g/dL (3.5-5.0); Alkaline Phosphatase 74 U/L (39-117); Anion Gap 11 (12-20); Aspartate Amino Transferase 16 U/L (5-31); Bilirubin Total 0.5 mg/dL (0.0-1.0); Blood Urea Nitrogen 12 mg/dL (9-16); Calcium 9.8 mg/dL (8.4-10.2); Carbon Dioxide 23 mmol/L (22-29); Chloride 111 mmol/L (96-108); Cholesterol 258 mg/dL; Estimated Glomerular Filt Rate > 60; Glucose Random 102 mg/dL (60-115); HDL Cholesterol 64 mg/dL; LDL Cholesterol Calculated 175 mg/dl; Potassium 5.2 mmol/L (3.3-5.1); Sodium 140 mmol/L (135-145); Triglycerides 98 mg/dL
[2021-10-08 15:08] LABS: Free T4 (Free Thyroxine) 0.87 ng/dL (0.71-1.85); Thyroid Stimulating Hormone 0.97 uIU/mL (0.32-4.0); Vitamin D 25-OH Total 22.7 ng/mL (>30)
[2021-10-08 15:39] LABS: Folate 8.8 ng/mL (> or = 4.0); Vitamin B12 160 pg/mL (200-900)
== END 2021-10-08 13:05 | disposition home or self-care (01) ==
LOC: HO.LAB 13:04
PROVIDERS: PCP Internal Medicine; Visit Provider Internal Medicine
DX: J43.9 Emphysema, unspecified (principal); R91.8 Other nonspecific abnormal finding of lung field; G62.9 Polyneuropathy, unspecified; E78.00 Pure hypercholesterolemia, unspecified; M81.0 Age-related osteoporosis without current pathological fracture
CPT/HCPCS: 36415; 72100; 80053; 80061; 82306; 82607; 82746; 84439; 84443; 85025; 99212

== ENCOUNTER → 2021-12-09 13:22 | Outpatient (BNVA) | payer MEDICARE, SELFPAY | PROVIDERS: PCP Internal Medicine; Referring Provider Internal Medicine; Visit Provider Physician Assistant | DX: K64.4 Residual hemorrhoidal skin tags (principal); R19.4 Change in bowel habit; R10.9 Unspecified abdominal pain; K21.9 Gastro-esophageal reflux disease without esophagitis | CPT/HCPCS: 99212 ==

== ENCOUNTER → 2022-01-12 15:32 | Outpatient (BNVA) | payer MEDICARE, SELFPAY | PROVIDERS: PCP Internal Medicine; Visit Provider Surgery | DX: K60.2 Anal fissure, unspecified (principal); K64.4 Residual hemorrhoidal skin tags | CPT/HCPCS: 99212 ==

== ENCOUNTER 2022-01-13 11:04 | Outpatient (REF) | payer MEDICARE, SELFPAY ==
--- NOTE | ~2022-01-13 | XR_ITS ---
EXAMINATION: XR ELBOW, LEFT CLINICAL INFORMATION: M25.522 - Pain in left elbow COMPARISON: None TECHNIQUE: AP, lateral, and oblique views of the left elbow. FINDINGS: No fracture, dislocation, destructive process, or elbow capsular effusion. No joint narrowing or erosive change. No epicondylar or olecranon spurring. XR/XR elbow LT 2V IMPRESSION: Unremarkable left elbow.
--- NOTE | ~2022-01-13 | XR_ITS ---
EXAMINATION: XR HAND, LEFT CLINICAL INFORMATION: Pain left hand. COMPARISON: None TECHNIQUE: PA, lateral, and oblique views of the left hand. FINDINGS: There is mild generalized osteopenia. No acute or healing fracture, dislocation, destructive process. The ulnar variance is neutral. No focal joint narrowing or erosive changes. XR/XR hand LT min 3V IMPRESSION: -No fracture or focal arthropathy. -Generalized mild osteopenia.
--- NOTE | ~2022-01-13 | US_ITS ---
EXAMINATION: US ABDOMEN COMPLETE CLINICAL INFORMATION: Unspecified abdominal pain. COMPARISON: CT abdomen and pelvis 03/31/2018 and abdominal ultrasound October 2010. TECHNIQUE: Real-time imaging of the abdominal viscera. FINDINGS: PANCREAS: Normal. ABDOMINAL AORTA: The proximal, mid, and distal segments are normal in caliber. INFERIOR VENA CAVA: Visualized portions are normal. LIVER: The liver is normal in size. The liver contour is normal. Parenchymal echogenicity is normal. There is a small cyst in the right lobe of the liver adjacent to the gallbladder measuring 8 mm. No other focal liver lesion. There is no intrahepatic biliary duct dilatation seen. GALLBLADDER: Normal. The gallbladder is physiologically distended without evidence of stones, sludge, polyps, wall thickening or pericholecystic fluid. COMMON BILE DUCT: Normal in caliber measuring 0.37 cm in diameter. RIGHT KIDNEY: Abnormal rotation of the right kidney. No hydronephrosis. No renal calculi or focal parenchymal lesions. The kidney measures 10.4 cm in maximum dimension. LEFT KIDNEY: Normal. No hydronephrosis. No renal calculi or focal parenchymal lesions. The kidney measures 10.7 cm in maximum dimension. SPLEEN: Normal. The spleen measures 9.6 cm in maximum dimension. FREE FLUID: None. US/US abdomen complete IMPRESSION: Small liver cyst. Abnormal rotation of the right kidney. Otherwise unremarkable exam.
== END 2022-01-13 11:05 | disposition home or self-care (01) ==
LOC: HO.HMGCX 11:04
PROVIDERS: Absent Provider Internal Medicine; PCP Internal Medicine; Visit Provider Physician Assistant
DX: R10.9 Unspecified abdominal pain (principal); M25.522 Pain in left elbow; E53.8 Deficiency of other specified B group vitamins
CPT/HCPCS: 73070; 73130; 76700

== ENCOUNTER 2022-01-26 10:29 | Outpatient (REF) | payer MEDICARE, SELFPAY ==
--- NOTE | ~2022-01-26 | MR_ITS ---
EXAMINATION: MR CERVICAL SPINE WITHOUT CONTRAST CLINICAL INFORMATION: Left upper extremity radiculopathy. Numbness in feet. Neck pain. COMPARISON: MRI dated 06/06/2019. TECHNIQUE: Multiplanar, multisequential imaging of the cervical spine was performed without contrast. FINDINGS: VERTEBRAL BODIES AND PARASPINAL SOFT TISSUES: The marrow signal is within normal limits. Uslrukfd-[id number] loss of disc height again evident at the C3-C4 and C4-C5 levels. There is a stable minimal anterolisthesis at C3-C4 and a posterior subluxation at C4-C5. Ankylosis of the left C2-C3 facet joint again noted. There are no compression fractures or new subluxations. The paraspinal soft tissues are normal. The vertebral artery flow voids are maintained. The imaged lung apices are grossly clear. CERVICOMEDULLARY JUNCTION AND VISUALIZED POSTERIOR FOSSA: The craniovertebral junction and imaged portions of the brain parenchyma appear normal. Moderate volume loss again noted in the cerebellar vermis, more so superiorly. No cord signal abnormality or syrinx is seen. SPINAL LEVELS: C2-C3: No disc pathology or central canal stenosis. Patent foramina. C3-C4: Broad-based disc-osteophyte complex and significant facet arthrosis, more so on the left side with stable mild central canal stenosis. Stable severe left foraminal narrowing. C4-C5: Retrosubluxation and disc-osteophyte complex with mild central canal stenosis and moderate right foraminal narrowing. Significant left-sided facet arthropathy. C5-C6: No significant disc pathology. No central canal stenosis or foraminal narrowing. C6-C7: Mild posterior disc bulge and thickening of the ligamentum flavum with slight encroachment upon the canal. Patent foramina. C7-T1: No disc pathology. No central canal stenosis or foraminal narrowing. MR/MR cervical spine wo con IMPRESSION: Stable moderate spondylosis and minimal anterolisthesis at the C3-C4 level with exuberant left-sided facet arthropathy and left foraminal narrowing. Stable posterior subluxation and moderate spondylosis at the C4-C5 level with moderate right foraminal encroachment. Significant left-sided facet arthropathy.
== END 2022-01-26 10:30 | disposition home or self-care (01) ==
LOC: HO.MRI 10:29
PROVIDERS: Visit Provider Internal Medicine
DX: R29.898 Other symptoms and signs involving the musculoskeletal system (principal); M54.2 Cervicalgia; R20.0 Anesthesia of skin; M54.10 Radiculopathy, site unspecified
CPT/HCPCS: 72141

== ENCOUNTER → 2022-02-02 13:05 | Outpatient (BNVA) | payer MEDICARE, SELFPAY | PROVIDERS: PCP Internal Medicine; Visit Provider Internal Medicine Pulmonary Disease | DX: J43.9 Emphysema, unspecified (principal); R91.8 Other nonspecific abnormal finding of lung field | CPT/HCPCS: 99212 ==

== ENCOUNTER → 2022-02-25 11:32 | Outpatient (BNVA) | payer MEDICARE, SELFPAY | PROVIDERS: PCP Internal Medicine; Visit Provider Surgery | DX: Z85.3 Personal history of malignant neoplasm of breast (principal) | CPT/HCPCS: 99212 ==

== ENCOUNTER → 2022-03-24 12:08 | Outpatient (BNVA) | payer MEDICARE, SELFPAY | PROVIDERS: PCP Internal Medicine; Referring Provider Internal Medicine; Visit Provider Internal Medicine | DX: I25.10 Atherosclerotic heart disease of native coronary artery without angina pectoris (principal); I49.1 Atrial premature depolarization; I31.39 Other pericardial effusion (noninflammatory) | CPT/HCPCS: 93005; 99212 ==

== ENCOUNTER 2022-03-31 11:21 | Outpatient (REF) | payer MEDICARE, SELFPAY ==
[2022-03-31 14:20] LABS: Alanine Aminotransferase 12 U/L (0-31); Albumin Level 4.9 g/dL (3.5-5.0); Alkaline Phosphatase 81 U/L (39-117); Anion Gap 12 (12-20); Aspartate Amino Transferase 12 U/L (5-31); Bilirubin Total 0.5 mg/dL (0.0-1.0); Blood Urea Nitrogen 16 mg/dL (9-16); Calcium 9.7 mg/dL (8.4-10.2); Carbon Dioxide 23 mmol/L (22-29); Chloride 111 mmol/L (96-108); Cholesterol 243 mg/dL; Estimated Glomerular Filt Rate > 60; Glucose Random 96 mg/dL (60-115); HDL Cholesterol 58 mg/dL; LDL Cholesterol Calculated 161 mg/dl; Potassium 3.7 mmol/L (3.3-5.1); Sodium 142 mmol/L (135-145); Triglycerides 124 mg/dL
[2022-03-31 14:45] LABS: Folate 8.7 ng/mL (> or = 4.0); Vitamin B12 673 pg/mL (200-900)
[2022-04-06 23:34] LABS: Intrinsic Factor Antibodies Negative (Negative)
[2022-04-07 12:47] LABS: Parietal Cell Antibody <=20.0 Unit (<=20.0)
== END 2022-03-31 11:22 | disposition home or self-care (01) ==
LOC: HO.HMGCLDS 11:21
PROVIDERS: PCP Internal Medicine; Visit Provider Internal Medicine
DX: E53.8 Deficiency of other specified B group vitamins (principal); E78.00 Pure hypercholesterolemia, unspecified
CPT/HCPCS: 36415; 80053; 80061; 82607; 82746; 83516; 86340

== ENCOUNTER 2022-05-20 11:26 | Outpatient (REF) | payer MEDICARE, SELFPAY ==
--- NOTE | 2022-05-20 09:15 | EMG_ITS ---
Left median and ulnar motor and sensory studies were performed. Left radial sensory study was performed and paraspinal muscles were tested with a needle. IMPRESSION: Mild left ulnar neuropathy across cubital tunnel. MD RADHA Schwarz/IAN / [id number]
== END 2022-05-20 11:27 | disposition home or self-care (01) ==
LOC: HO.NEURO 11:26
PROVIDERS: Visit Provider Internal Medicine
DX: M79.602 Pain in left arm (principal); R29.898 Other symptoms and signs involving the musculoskeletal system
CPT/HCPCS: 95886; 95909

== ENCOUNTER 2022-06-17 14:10 | Outpatient (REF) | payer MEDICARE, SELFPAY ==
--- NOTE | ~2022-06-17 | CT_ITS ---
EXAMINATION: CT CHEST WITHOUT CONTRAST CLINICAL INFORMATION: Follow-up pulmonary nodule. COMPARISON: CT chest without contrast 07/08/2021. TECHNIQUE: Multidetector volumetric CT imaging of the chest was done. Axial MIP volume rendering provided. Sagittal and coronal reformatted images were obtained. This CT examination was performed using dose optimization techniques as appropriate, variously including the following: *Automated exposure control *Adjustment of mA and/or kV according to patient size (this includes techniques or standardized protocols for targeted exams where dose is matched to indication/reason for exam; i.e. extremities or head) *Use of iterative reconstruction technique DLP: 154 mGy-cm FINDINGS: LEATHER WHITENER: Hyperinflated lungs, without acute process. LUNGS: There are hyperinflated lungs without any acute pneumonic process. Calcified granuloma right lower lobe CP angle is stable. There are several small pulmonary nodules. Left lower lobe endobronchial 2 mm nodule axial image 352/6, 2 mm endobronchial lingular nodule axial image 361/6 are new. Previously visualized endobronchial nodule debris left lower lobe is not visualized. 4 mm nodule peripherally based right lower lobe axial image 321/6 are stable. 2 mm nodule right middle lobe axial image 246/5 is stable. 3 mm nodule along the left major fissure axial image 227/6 is stable. No large new nodule or mass seen. MEDIASTINUM: The thyroid lobes are symmetric and normal. The central trachea and the bronchi are widely patent. The heart size and the great vessels are normal caliber. No abnormal size mediastinal or hilar lymphadenopathy seen. There is small pericardial effusion. CORONARY ARTERY CALCIFICATION: Mild coronary artery calcification seen. PLEURA: There is no pleural effusion. No pleural mass or thickening. AXILLA: Small shotty lymph nodes seen in the axilla. UPPER ABDOMEN: Visualized liver, spleen, pancreas and bilateral adrenal glands unremarkable. OSSEOUS STRUCTURES: No aggressive lytic or sclerotic process seen. CT/CT chest wo IV con IMPRESSION: Hyperinflated lungs with maximum having endobronchial lesions related to airway inflammatory process. Pulmonary nodules are essentially stable including the largest 4 mm nodule is stable. No abnormal mediastinal or hilar adenopathy seen. Minimal pericardial effusion is likely stable. Fleischner guidelines were followed.
== END 2022-06-17 14:11 | disposition home or self-care (01) ==
LOC: HO.CT 14:10
PROVIDERS: PCP Internal Medicine; Visit Provider Internal Medicine Pulmonary Disease
DX: R91.8 Other nonspecific abnormal finding of lung field (principal)
CPT/HCPCS: 71250

== ENCOUNTER 2022-07-16 12:53 | Outpatient (REF) | payer MEDICARE, SELFPAY ==
[2022-07-16 14:24] LABS: Alanine Aminotransferase 20 U/L (0-31); Albumin Level 4.5 g/dL (3.5-5.0); Alkaline Phosphatase 84 U/L (39-117); Anion Gap 13 (12-20); Aspartate Amino Transferase 16 U/L (5-31); Bilirubin Total 0.5 mg/dL (0.0-1.0); Blood Urea Nitrogen 15 mg/dL (9-16); Calcium 9.5 mg/dL (8.4-10.2); Carbon Dioxide 21 mmol/L (22-29); Chloride 113 mmol/L (96-108); Cholesterol 219 mg/dL; Estimated Glomerular Filt Rate > 60; Glucose Random 94 mg/dL (60-115); HDL Cholesterol 54 mg/dL; LDL Cholesterol Calculated 144 mg/dl; Potassium 4.2 mmol/L (3.3-5.1); Sodium 143 mmol/L (135-145); Total Protein 6.7 g/dL (6.5-8.0); Triglycerides 107 mg/dL
== END 2022-07-16 12:54 | disposition home or self-care (01) ==
LOC: HO.HMGCLDS 12:53
PROVIDERS: PCP Internal Medicine; Visit Provider Internal Medicine
DX: E78.00 Pure hypercholesterolemia, unspecified (principal)
CPT/HCPCS: 36415; 80053; 80061

== ENCOUNTER → 2022-09-08 10:24 | Outpatient (BNVA) | payer MEDICARE, SELFPAY | PROVIDERS: PCP Internal Medicine; Visit Provider Nurse Practitioner Family | DX: J43.9 Emphysema, unspecified (principal); R91.8 Other nonspecific abnormal finding of lung field | CPT/HCPCS: 99212 ==

== ENCOUNTER 2022-10-13 11:59 | Outpatient (REF) | payer MEDICARE, SELFPAY | END 2022-10-13 12:00 | disposition home or self-care (01) | LOC: HO.HMGCLDS 11:59 | PROVIDERS: PCP Internal Medicine; Visit Provider Internal Medicine | DX: E78.00 Pure hypercholesterolemia, unspecified (principal) | CPT/HCPCS: 36415; 80053; 80061; 84439; 84443 ==

== ENCOUNTER 2022-10-28 11:34 | Outpatient (AMB) | payer MEDICARE, SELFPAY ==
[2022-10-28 11:40] VITALS: BP 114/72; PULSE 77; O2SAT 98; BMI 17.9
--- NOTE | 2022-10-28 11:40 | A.OFFPC_ITS ---
Vital Signs 10/28/22 11:40 Height 5 ft 6 in Weight 111 lb BMI 17.9 BP 114/72 Blood Pressure Location Lt brachial Position Sitting Pulse 77 Pulse Source Pulse Oximeter Pulse Oximetry (%) 98 Oxygen Delivery Method Room Air Intake Visit Reasons: cholesterol Allergies oxycodone [Percocet] Allergy (Unknown, Verified 10/28/22 11:40) Unknown rosuvastatin Adverse Reaction (Verified 10/28/22 11:40) myalgia Medication List - Last Reconciled 10/28/22 by Vania Matson MD acetaminophen (Tylenol) 325 mg PO QID PRN albuterol sulfate 90 mcg/actuation (ProAir HFA) 2 puffs inhalation Q6H PRN cyanocobalamin (vitamin B-12) 1,000 mcg PO DAILY cyclobenzaprine 10 mg PO TID docusate sodium (Colace) 200 mg (2 x 100 mg) PO BEDTIME hydrocortisone 2.5% (Proctozone-HC) 1 appl MA BID PRN meloxicam 15 mg PO DAILY methylcellulose (laxative) (Citrucel) 500 mg PO TID omeprazole 40 mg PO BID simvastatin 5 mg PO BEDTIME sumatriptan succinate 50 mg PO .QD PRN 90 days topiramate (Topamax) 100 mg PO BEDTIME triamcinolone acetonide 0.5% 1 appl topical BID 14 days umeclidinium-vilanterol 62.5-25 mcg/actuation (Anoro Ellipta) 1 inh inhalation DAILY Tobacco use date assessed: 07/21/22 Fall risk assessment: No Falls in past year Last assessed Fall Risk: 10/28/22 Dental Screening Dental Screen Date: 10/28/22 Did you have a dental visit in the last 12 months?: Yes Did you have a dental problem in the last 6 months where you did not have access to dental care?: No Was dental information given to patient?: Patient has dentist HPI cholesterol HPI Details 66-year-old female with ulnar neuropathy breast cancer GERD hypercholesterolemia pulmonary nodules COPD cervical degenerative disc disease last seen in July 2022. Patient was placed on cholesterol medication simvastatin 5 mg and follow-up today. Mammogram is due next month colonoscopy is up-to-date patient had an x-ray done of the lumbar stable spine showing 8 degree levoscoliosis with apex at the L3-L4 level.for the COPD follows up with pulmonary CT scan done June [address] scan June 2023. Patient has also seen the [facility] for the low back pain therapy requested. fall down the stairs no syncope fall down on back. patient is feeling fine . PAtient has been noticing a mass on the L side posterointerior auricular area and states getting numb on the L side of the neck , no n no v no sore throat. cholesterol - cannot tolerate the rosuvastatin so placed on simvastatin decline changing doses PFSH Medical History Blind left eye Breast cancer Carotid stenosis, right Degenerative disc disease, cervical Dysphagia GERD (gastroesophageal reflux disease) History of colon polyps Hypercholesterolemia Left renal stone Migraine Pericardial effusion Thyroid nodule Surgical History H/O lumpectomy H/O lymph node biopsy History of lobectomy of thyroid History of shoulder surgery History of tonsillectomy History of vaginal hysterectomy Family History (Updated 07/21/22 @ 11:01 by Tali Salguero) Mother Dementia Father Lung cancer metastatic to bone Maternal Uncle FH: prostate cancer Paternal Uncle FH: prostate cancer Maternal Uncle Myocardial infarct Brother Skin cancer Social History Household Members: Spouse Housing: House Alcohol intake: never Patient Tobacco Use Status: Former Tobacco user Years Smoked: quit 30 years old e-Cigarette/Vaping Use: Never Used Second Hand Smoke Exposure: No Advance Directives Date on File: 01/28/20 Current occupational status: retired 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 1. Little interest or pleasure in doing things: not at all 2. Feeling down, depressed, or hopeless: not at all 3. Trouble falling or staying asleep, or sleeping too much: not at all 4. Feeling tired or having little energy: not at all 5. Poor appetite or overeating: not at all 6. Feeling bad about yourself - or that you are a failure or have let yourself or your family down: not at all 7. Trouble concentrating on things, such as reading the newspaper or watching television: not at all 8. Moving or speaking so slowly that other people could have noticed. Or the opposite - being so fidgety or restless that you have been moving around a lot more than usual: not at all 9. Thoughts that you would be better off or of hurting yourself in some way: not at all Total score: 0 Depression Screening Interpretation: Negative Source: Developed by Drs. Keith Mast, Deanna Rodriguez, Tk Reddy and colleagues, with an educational kelle from [employer]. Thrive Questionnaire Date Thrive assessed: 07/21/22 AUDIT C Alcohol Use Questionnaire (AUDIT-C) 1. How often do you have a drink containing alcohol?: 2-4 times a month 2. How many drinks containing alcohol do you have on a typical day when you are drinking?: 1 or 2 3. How often do you have six or more drinks on one occasion?: Never Total Score: 2 SANGITA-7 AMB Questionnaire SANGITA-7 Date SANGITA - 7 assessed: 07/21/22 Source: Developed by Drs. Keith Mast, Deanna Rodriguez, Tk Reddy and colleagues, with an educational kelle from [employer]. Physical exam (Primary Care) Vital Signs: Last Vital Signs Pulse 77 10/28/22 11:40 BP 114/72 10/28/22 11:40 Pulse Ox 98 10/28/22 11:40 Oxygen Delivery Method Room Air 10/28/22 11:40 Care Plan Goal for BP management: Good palpable lump/mass 1 cm over the left postero inferior auricular area BMI result Body Mass Index 17.9 Tobacco/Smoking Status: Tobacco use Status Tobacco use date assessed 07/21/22 10/28/22 11:53 Patient Tobacco Use Status Former Tobacco user 10/28/22 11:53 e-Cigarette/Vaping Use Never Used 10/28/22 11:53 PHQ-9: PHQ-9 Score PHQ-9: Total score 0 10/28/22 11:53 Depression Screening Interpretation: Negative Thrive Assessment: Date of Thrive Assessment Date Thrive assessed 07/21/22 10/28/22 11:53 Const General: alert; No acute distress HENNC Head images: 1. 1 cm palpable lump on turning head to the right posteroinferior auricular area Eyes Conjunctivae: conjunctivae normal Resp Auscultation: clear to auscultation bilaterally Cardio Rate: regular rate Rhythm: regular rhythm GI Inspection: Yes normal to inspection Extrem General: Yes normal to inspection and No edema Assessment and Plan Assessment & Plan (1) Atherosclerotic cardiovascular disease: Code(s): I25.10 - Atherosclerotic heart disease of [place] coronary artery without angina pectoris Plan: Control the cholesterol, weight, blood pressure, diabetes LDL goal of less than 70 (2) Infiltrating ductal carcinoma: Comment: 2003 lumpectomy and radiation and tamoxifen Code(s): C50.919 - Malignant neoplasm of unspecified site of unspecified female breast Plan: Mammograms up-to-date (3) GERD (gastroesophageal reflux disease): Comment: Continue PPI,cut back to 1 daily- avoid culprits Code(s): K21.9 - Gastro-esophageal reflux disease without esophagitis Qualifiers: Esophagitis presence: without esophagitis Qualified Code(s): K21.9 - Gastro-esophageal reflux disease without esophagitis Plan: Avoid the foods that causes that usually spicy foods, tomato products, juices, coffee, soda and foods that your sensitive to. After eating do not lie down, allow 3-4 hours before in lie down. And keep the head of bed above 30 degrees to avoid the acid from going up. (4) Degenerative disc disease, cervical: Comment: 2021 Code(s): M50.30 - Other cervical disc degeneration, unspecified cervical region Plan: Keep active (5) Hypercholesterolemia: Code(s): E78.00 - Pure hypercholesterolemia, unspecified Plan: Avoid fried foods, chicken skin, eggs, butter margarine, pastries and meat. Be it pork or beef they have a lot of cholesterol LDL goal of less than 70 and triglyceride of less than 150 patient is on simvastatin 5 mg once a day/ decline change in med (6) Pulmonary nodules: Comment: June 2022 Code(s): R91.8 - Other nonspecific abnormal finding of lung field Plan: Stable June [address] scan (7) COPD (chronic obstructive pulmonary disease): Code(s): J44.9 - Chronic obstructive pulmonary disease, unspecified Qualifiers: COPD type: emphysema Emphysema type: unspecified Qualified Code(s): J 43.9 - Emphysema, unspecified Plan: Continue with the inhaler and stable (8) Mass of left side of neck: Code(s): R22.1 - Localized swelling, mass and lump, neck Orders: Orders CT soft tissue neck wo IV con Today R22.1 - Localized swelling, mass and lump, neck Coding Level of Care Code Est Pt Level 4 (13047) Diagnoses Atherosclerotic cardiovascular disease I25.10 Infiltrating ductal carcinoma C50.919 GERD (gastroesophageal reflux disease) K21.9 Esophagitis presence: without esophagitis Degenerative disc disease, cervical M50.30 Hypercholesterolemia E78.00 Pulmonary nodules R91.8 COPD (chronic obstructive pulmonary disease) J43.9 COPD type: emphysema Emphysema type: unspecified Mass of left side of neck R22.1
== END 2022-10-28 12:28 | disposition home or self-care (01) ==
PROVIDERS: Visit Provider Internal Medicine
DX: K21.9 Gastro-esophageal reflux disease without esophagitis (principal); C50.919 Malignant neoplasm of unspecified site of unspecified female breast; J43.9 Emphysema, unspecified; I25.10 Atherosclerotic heart disease of native coronary artery without angina pectoris; M50.30 Other cervical disc degeneration, unspecified cervical region; E78.00 Pure hypercholesterolemia, unspecified; R91.8 Other nonspecific abnormal finding of lung field; R22.1 Localized swelling, mass and lump, neck
CPT/HCPCS: 99214

== ENCOUNTER 2022-11-08 12:56 | Outpatient (AMB) | payer MEDICARE, SELFPAY ==
--- NOTE | 2022-11-08 12:58 | MHC.OFFVIS ---
Intake Vital Signs 11/08/22 12:59 Height 5 ft 6 in Weight 111 lb 8.862 oz BMI 18.0 BP 120/59 L Blood Pressure Location Lt brachial Position Sitting Pulse 78 Intake Visit Reasons: GERD med refills Intake Note: Patient follow up for GERD and medication refills. Patient cc: Patient reports she continues to have occasional nausea, low abdominal pain/bloating. She states she is a little bit better since e starting the Metamucil. 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 Accompanied by: Self / Same As Patient Allergies oxycodone [Percocet] Allergy (Unknown, Verified 11/08/22 13:03) Unknown rosuvastatin Adverse Reaction (Verified 11/08/22 13:03) myalgia Medication List - Last Reconciled 11/08/22 by Mariluz Belcher PA-C acetaminophen (Tylenol) 325 mg PO QID PRN albuterol sulfate 90 mcg/actuation (ProAir HFA) 2 puffs inhalation Q6H PRN cyanocobalamin (vitamin B-12) 1,000 mcg PO DAILY cyclobenzaprine 10 mg PO TID docusate sodium (Colace) 200 mg (2 x 100 mg) PO BEDTIME hydrocortisone 2.5% (Proctozone-HC) 1 appl MA BID PRN meloxicam 15 mg PO DAILY methylcellulose (laxative) (Citrucel) 500 mg PO TID omeprazole 40 mg PO DAILY 30 days simvastatin 5 mg PO BEDTIME sumatriptan succinate 50 mg PO .QD PRN 90 days topiramate (Topamax) 100 mg PO BEDTIME triamcinolone acetonide 0.5% 1 appl topical BID 14 days umeclidinium-vilanterol 62.5-25 mcg/actuation (Anoro Ellipta) 1 inh inhalation DAILY HPI HPI Comments History of Present Illness Details A 66 y//o female returns for a refill on her omeprazole-40 mg - daily- She also taking fiber - She does get LBP- since a fall she is losing weight 8-10 lbs since the past year Appetite is not great- has chronic nausea-heartburn is not resolved by ppi- daily- she is taking bid often Just not feeling up to par-she has a large lymph node left side of neck that is being evaluated as well She is going to be traveling soon for her anniversary, this does cause her some increased anxiety given her sx EGD about 2 years ago No vomiting, hematemesis, hematochezia fever or chills PFSH Medical History Blind left eye Breast cancer Carotid stenosis, right Degenerative disc disease, cervical Dysphagia GERD (gastroesophageal reflux disease) History of colon polyps Hypercholesterolemia Left renal stone Migraine Pericardial effusion Thyroid nodule Surgical History H/O lumpectomy H/O lymph node biopsy History of lobectomy of thyroid History of shoulder surgery History of tonsillectomy History of vaginal hysterectomy Family History Mother Dementia Father Lung cancer metastatic to bone Maternal Uncle FH: prostate cancer Paternal Uncle FH: prostate cancer Maternal Uncle Myocardial infarct Brother Skin cancer Social History Household Members: Spouse Housing: House Alcohol intake: never Patient Tobacco Use Status: Former Tobacco user Years Smoked: quit 30 years old e-Cigarette/Vaping Use: Never Used Second Hand Smoke Exposure: No Advance Directives Date on File: 01/28/20 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 Cognitive needs: No Hearing needs: No Vision needs: Yes Review of Systems Const All systems reviewed & are unremarkable except as noted in HPI and below ENT Reports neck mass Card Denies chest pain and Denies dyspnea Resp Denies dyspnea GI Reports abdominal pain, Denies change in bowel habits, Reports heartburn and Reports nausea Physical Exam Vital Signs: Last Vital Signs Pulse 78 11/08/22 12:59 BP 120/59 L 11/08/22 12:59 BMI result Body Mass Index 18.0 Const General: cooperative, comfortable and no acute distress Nutritional Appearance: thin Orientation/consciousness: patient oriented x3 Limitations: no limitations Eyes Sclerae: sclerae normal Resp Effort & Inspection: normal respiratory effort and able to speak in complete sentences Auscultation: clear to auscultation bilaterally and diminished lung sounds Cardio Rate: regular rate Rhythm: regular rhythm Heart sounds: S1 normal heart sound present and S2 normal heart sound present GI Palpation (GI): Soft to palpation, Tenderness to palpation present (GI) (Mild,vague-diffuse) and no guarding Auscultation: normal bowel sounds Skin Lesions: lesion noted (Varying size moles= torso) Neuro General: patient oriented x3 Extrem General: Yes full ROM Psych Appearance: grossly normal Mental Status: mental status grossly normal Speech and movement: Normal speech and movement present and Clear speech present Affect: normal affect Attitude: cooperative Thought process: Normal thought process present Thought content: Normal thought content present Insight: Good insight present (Psych) Judgement: Good judgement present (Psych) Results Reviewed Results Reviewed: Plan: Await pathology results Patient has an appointment on 01/05/21 in the [facility] Clinic with [facility] Escamilla . Repeat Colonoscopy in 5 years due to hx of adenomatous colon polyps. Above findings were reviewed with the patient and? diverticulosis handout was given in the discharge area.? Patient was advised to stop Ibuprofen and increase Omeprazole to twice daily for 3 months. Assess Plan: Await pathology results Patient has an appointment on 01/05/21 in the GI Clinic with [facility] Escamilla . Repeat Colonoscopy in 5 years due to hx of adenomatous colon polyps. Above findings were reviewed with the patient and? diverticulosis handout was given in the discharge area.? Patient was advised to stop Ibuprofen and increase Omeprazole to twice daily for 3 months. Plan: Await pathology results Patient has an appointment on 01/05/21 in the GI Clinic with [facility] Escamilla . Repeat Colonoscopy in 5 years due to hx of adenomatous colon polyps. Above findings were reviewed with the patient and? diverticulosis handout was given in the discharge area.? Patient was advised to stop Ibuprofen and increase Omeprazole to twice daily for 3 month 01/30 US/US abdomen complete IMPRESSION: Small liver cyst. Abnormal rotation of the right kidney. Otherwise unremarkable exam Assessment & Plan Assessment & Plan (1) Gastric ulcer: Comment: 11/2020 EGD she had Increase omeprazole 40 mg to b.i.d.,x 3 months- continue to avoid NSAIDs- Repeat EGD ? recurring ulcer Code(s): K25.9 - Gastric ulcer, unspecified as acute or chronic, without hemorrhage or perforation Plan: EGD r/o gastric ulcer (2) GERD (gastroesophageal reflux disease): Comment: Continue PPI increase to b.i.d. until EGD, then discussed plan of Code(s): K21.9 - Gastro-esophageal reflux disease without esophagitis Qualifiers: Esophagitis presence: without esophagitis Qualified Code(s): K21.9 - Gastro-esophageal reflux disease without esophagitis (3) COPD (chronic obstructive pulmonary disease): Code(s): J44.9 - Chronic obstructive pulmonary disease, unspecified Qualifiers: COPD type: emphysema Emphysema type: unspecified Qualified Code(s): J43.9 - Emphysema, unspecified Plan EGD- zofran for nausea ppi bid Medications: New ondansetron HCl 4 mg PO DAILY 20 tabs 0RF Changed From omeprazole 40 mg PO BID 60 caps 3RF To omeprazole 40 mg PO DAILY 30 days 30 caps 11RF Patient Instructions: Very pleasant female history gastric ulcer presents with epigastric pain, nausea, despite PPI-decreased appetite weight loss Repeat EGD Dr. Evans Omeprazole b.i.d. will re-evaluate after EGD Reflux precautions Use Zofran for nausea Encouraged to call with questions or concerns Follow-up for progress after EGD Coding Level of Care Code Est Pt Level 3 (07695) Diagnoses Gastric ulcer K25.9 GERD (gastroesophageal reflux disease) K21.9 Esophagitis presence: without esophagitis COPD (chronic obstructive pulmonary disease) J43.9 COPD type: emphysema Emphysema type: unspecified Time Spent (min) 30
[2022-11-08 12:59] VITALS: BP 120/59; PULSE 78; BMI 18.0
== END 2022-11-08 13:55 | disposition home or self-care (01) ==
PROVIDERS: PCP Internal Medicine; Visit Provider Physician Assistant
DX: K25.9 Gastric ulcer, unspecified as acute or chronic, without hemorrhage or perforation (principal); K21.9 Gastro-esophageal reflux disease without esophagitis; J43.9 Emphysema, unspecified
CPT/HCPCS: 99213

== ENCOUNTER → 2022-11-08 12:56 | Outpatient (BNVA) | payer MEDICARE, SELFPAY | PROVIDERS: PCP Internal Medicine; Visit Provider Physician Assistant | DX: K25.9 Gastric ulcer, unspecified as acute or chronic, without hemorrhage or perforation (principal); K21.9 Gastro-esophageal reflux disease without esophagitis; J43.9 Emphysema, unspecified; R22.1 Localized swelling, mass and lump, neck; M54.50 Low back pain, unspecified; Z91.81 History of falling; Z86.010 Personal history of colon polyps | CPT/HCPCS: 99212 ==

== ENCOUNTER 2022-11-11 10:25 | Outpatient (REF) | payer MEDICARE, SELFPAY ==
[2022-11-11 11:43] LABS: Blood Urea Nitrogen 16 mg/dL (9-16); Estimated Glomerular Filt Rate > 60
== END 2022-11-11 10:26 | disposition home or self-care (01) ==
LOC: HO.LAB 10:25
PROVIDERS: PCP Internal Medicine; Visit Provider Internal Medicine
DX: R22.1 Localized swelling, mass and lump, neck (principal)
CPT/HCPCS: 36415; 82565; 84520

== ENCOUNTER 2022-11-12 06:52 | Day surgery (SDC) | payer MEDICARE, SELFPAY ==
--- NOTE | 2022-11-12 07:51 | HO.ANESPROP2 ---
HPI - Anesthesia Eval Consult details Narrative: 66 yo female patient for EGD PMFSH Active Problems Active Problems: All Active Problems (Updated 11/12/22 @ 07:45 by Gloria Oscar MD) Mass of left side of neck (Acute) Ulnar neuropathy of left upper extremity (Acute) Anal fissure (Acute) Decreased rose grower strength (Acute) LUE weakness (Acute) Left elbow pain (Acute) Vitamin B12 deficiency (Acute) Abdominal pain (Acute) Skin tag of perianal region (Acute) Peripheral neuropathy (Acute) Tinnitus of both ears (Acute) Annual physical exam (Acute) Atherosclerotic cardiovascular disease (Acute) Dysphagia (Acute) PAC (premature atrial contraction) (Acute) Infiltrating ductal carcinoma (Acute) Chronic constipation (Acute) Gastric ulcer (Acute) Eczema (Acute) Bowel habit changes (Acute) Annual physical exam (Acute) COVID-19 virus infection (Acute) GERD (gastroesophageal reflux disease) (Acute) Degenerative disc disease, cervical (Acute) Hypercholesterolemia (Acute) Pericardial effusion (Acute) Pulmonary nodules (Acute) COPD (chronic obstructive pulmonary disease) (Acute) Cervical disc disease with numbness fingers left Past Medical History Medical History Blind left eye Breast cancer Carotid stenosis, right Degenerative disc disease, cervical Dysphagia GERD (gastroesophageal reflux disease) History of colon polyps Hypercholesterolemia Left renal stone Migraine Pericardial effusion Thyroid nodule Family History Family History Mother Dementia Father Lung cancer metastatic to bone Maternal Uncle FH: prostate cancer Paternal Uncle FH: prostate cancer Maternal Uncle Myocardial infarct Brother Skin cancer Family history of problems with anesthesia: No Surgical History Surgical History H/O lumpectomy H/O lymph node biopsy History of lobectomy of thyroid History of shoulder surgery History of tonsillectomy History of vaginal hysterectomy History of Problems with Anesthesia: Yes (PONV) Social History Social History Household Members: Spouse Housing: House Alcohol intake: never Patient Tobacco Use Status: Former Tobacco user Years Smoked: quit 30 years old e-Cigarette/Vaping Use: Never Used Second Hand Smoke Exposure: No Advance Directives: No Advance Directives Information Provided: Yes Advance Directives Date on File: 01/28/20 Current occupational status: 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 Cognitive needs: No Hearing needs: No Vision needs: Yes Meds Allergies Allergy/AdvReac Type Severity Reaction Status Date / Time oxycodone [Percocet] Allergy Unknown Unknown Verified 11/08/22 13:03 rosuvastatin AdvReac myalgia Verified 11/08/22 13:03 Active Medications: Current Medications Lactated Ringer's (Lr) 1,000 mls @ 100 mls/hr IVCONT .Q10H [facility] Home Medications Medication Instructions Recorded Confirmed Last Taken Type acetaminophen 325 mg capsule 325 mg PO QID PRN Pain 01/11/20 11/08/22 Unknown History (Tylenol) topiramate 100 mg tablet (Topamax) 100 mg PO BEDTIME 08/25/20 11/08/22 Unknown History Exam Exam Date and Time: November 12, 2022 0751 Height,Weight and Vital Signs: Vital Signs Temp Pulse Resp BP Pulse Ox O2 Del Method 11/12/22 07:57 97.9 F 68 18 126/59 L 100 Room Air Airway Mallampati Class: I TM Dist: >3cm Neck ROM: Limited Loose/Missing/Broken Teeth: No (Denies broken, loose, missing teeth) Heart: RRR Lungs: CTAB Assessment and Plan Assessment Anesthesia Assessment: Anesthesia Plan Discussed and Chart Reviewed Final Anesthetic Review Family History of Problems with Anesthesia: No History of Problems with Anesthesia: Yes (PONV) NPO: Yes ASA Class: III Final Preanesthetic Review: No Changes in Pt Med Stat, Meds/Allgs Chart Reviewed, Consent Obtained/Reviewed and Anes Risks/Benef Reviewed Patient Risk: Intermediate Procedure Risk: Low Assessment/Block/Sedation in SS: Assess/Block/Sedation-SS Anesthetic Plan Anesthetic Plan: MAC: Disposition: Standard PACU
[2022-11-12 07:57] VITALS: BP 126/59; PULSE 68; RESP 18; TEMP 36.6; O2SAT 100
[2022-11-12] MEDS: Lactated Ringers 1,000 ML 100 ML IVCONT (07:59)
--- NOTE | 2022-11-12 08:18 | MHC.SHP ---
Pre-Procedural Eval Section A Date of Service: 11/12/22 The patient is an INPATIENT: No Changes since office visit: Yes Patient answered all questions; No Cold of Flu in the past 2 weeks, No New Medical Problems and No Changes in Medication The History & Physical has been completed within 30 days and I have reviewed it.: Yes Section B Chief Complaint: Gastro-esophageal reflux disease without esophagit Allergies: Allergies Allergy/AdvReac Type Severity Reaction Status Date / Time oxycodone [Percocet] Allergy Unknown Unknown Verified 11/08/22 13:03 rosuvastatin AdvReac myalgia Verified 11/08/22 13:03 Plan I have reviewed the history and physical and performed a pertinent physical examination on my patient. No changes have occurred unless specified. Time Spent With Patient Time: Total time managing care of this patient today ____ minutes.
--- NOTE | 2022-11-12 08:26 | W.PM.OPN ---
Operative Note Operative Note Date of Service: 11/12/22 Narrative: FLEXIBLE TRANSORAL UPPER GASTROINTESTINAL ENDOSCOPY WITH BIOPSIES Pre-op diagnosis: GERD, chronic nausea, epigastric pain, wt loss, hx of Post-op diagnosis: GERD, dysphagia, Gastritis Endoscopist:? Enrique Evans MD Anesthesia:?MAC Consent: Indications for the procedure and potential complications of bleeding, perforation, reaction to medications and missed diagnosis were discussed with the patient and informed consent was obtained. Instrument: Olympus GIF H 190 mid size upper endoscope Monitoring: Vital signs and clinical assessment, continuous EKG monitoring, Pulse oximetry, Carbon Dioxide monitoring and blood pressure monitoring were done throughout the procedure. Procedure: The patient was placed in the left lateral decubitis position and pre-procedure medications were administered and a bite block was placed. The endoscope was inserted into the mouth and advanced under direct vision to the third part of duodenum. A careful inspection was made as the upper endoscope was withdrawn including a retroflexed examination of the proximal stomach; Findings and interventions are described below. Findings: Larynx: Normal Esophagus: Tortuous esophagus with increased tertiary contractions without stricture or ring.? GE junction at 38 cms, small hiatal hernia 38 to 40 cms.? No esophagitis or Worthy's. Esophageal balloon dilation was performed with a 20 mm (60F) CRE balloon x 60 seconds Stomach:?Mild gastric antral erythema without ulcers or erosions - antral biopsies were obtained. Grade 2 flap valve on retroflexed examination of the cardia. Duodenum:?Normal bulb and descending duodenum.? Intervention: Biopsies and balloon dilation as noted above Impression and Post Procedure Diagnosis: Endoscopy Findings: ESOPHAGUS: Tortuous esophagus with increased tertiary contractions without stricture or ring.? GE junction at 38 cms, small hiatal hernia 38 to 40 cms.? No esophagitis or Worthy's. Esophageal balloon dilation was performed with a 20 mm (60F) CRE balloon x 60 seconds STOMACH: mild antral gastritis - no ulcers or erosions Plan: Await pathology results Patient has an appointment on 11/25/22 in the GI Clinic with [facility] Escamilla. Above findings were reviewed with the patient and GERD handout was given in the discharge area
[2022-11-12 08:37] VITALS: BMI 17.9
[2022-11-12 09:06] VITALS: BP 119/49; PULSE 74; RESP 16; TEMP 36.3; O2SAT 100
[2022-11-12 09:21] VITALS: BP 111/45; PULSE 59; RESP 16; TEMP 36.4; O2SAT 100
== END 2022-11-12 09:40 | disposition home or self-care (01) ==
PROVIDERS: PCP Internal Medicine; Visit Provider Internal Medicine Gastroenterology
PROC: 0DJ08ZZ Inspection of Upper Intestinal Tract, Via Natural or Artificial Opening Endoscopic (ICD-10-PCS; CPT 43235; principal; 2022-11-12 08:30)
DX: K21.9 Gastro-esophageal reflux disease without esophagitis (principal); K29.50 Unspecified chronic gastritis without bleeding; K25.9 Gastric ulcer, unspecified as acute or chronic, without hemorrhage or perforation; R63.4 Abnormal weight loss; Z68.1 Body mass index [BMI] 19.9 or less, adult; E78.00 Pure hypercholesterolemia, unspecified; I65.21 Occlusion and stenosis of right carotid artery; I31.39 Other pericardial effusion (noninflammatory); J43.9 Emphysema, unspecified; H54.62 Unqualified visual loss, left eye, normal vision right eye; G43.909 Migraine, unspecified, not intractable, without status migrainosus; Z79.51 Long term (current) use of inhaled steroids; Z79.899 Other long term (current) drug therapy; Z85.3 Personal history of malignant neoplasm of breast; Z88.8 Allergy status to other drugs, medicaments and biological substances; Z87.891 Personal history of nicotine dependence
CPT/HCPCS: 43239; 88305; 88342; C1726; J2405

== ENCOUNTER → 2022-11-12 06:52 | Outpatient (BNV) | payer MEDICARE, SELFPAY | PROVIDERS: PCP Internal Medicine; Visit Provider Internal Medicine Gastroenterology | DX: K21.9 Gastro-esophageal reflux disease without esophagitis (principal); R13.10 Dysphagia, unspecified; K29.70 Gastritis, unspecified, without bleeding | CPT/HCPCS: 43239; 43249 ==

== ENCOUNTER 2022-11-25 11:54 | Outpatient (AMB) | payer MEDICARE, SELFPAY ==
--- NOTE | 2022-11-25 12:01 | A.OFFVIS_ITS ---
Intake Vital Signs 11/25/22 12:03 Height 5 ft 6 in Weight 112 lb 14.027 oz BMI 18.2 BP 142/61 H Blood Pressure Location Lt brachial Position Sitting Pulse 63 Intake Visit Reasons: S/P EGD: Dr. 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 Accompanied by: Self / Same As Patient Allergies oxycodone [Percocet] Allergy (Unknown, Verified 11/25/22 12:03) Unknown rosuvastatin Adverse Reaction (Verified 11/25/22 12:03) myalgia Medication List - Last Reconciled 11/25/22 by Mariluz Belcher PA-C acetaminophen (Tylenol) 325 mg PO QID PRN albuterol sulfate 90 mcg/actuation (ProAir HFA) 2 puffs inhalation Q6H PRN cyanocobalamin (vitamin B-12) 1,000 mcg PO DAILY cyclobenzaprine 10 mg PO TID docusate sodium (Colace) 200 mg (2 x 100 mg) PO BEDTIME hydrocortisone 2.5% (Proctozone-HC) 1 appl IN BID PRN meloxicam 15 mg PO DAILY methylcellulose (laxative) (Citrucel) 500 mg PO TID omeprazole 40 mg PO DAILY 30 days ondansetron HCl 4 mg PO ONCE pantoprazole 20 mg PO DAILY 30 days simvastatin 5 mg PO BEDTIME sumatriptan succinate 50 mg PO .QD PRN 90 days topiramate (Topamax) 100 mg PO BEDTIME triamcinolone acetonide 0.5% 1 appl topical BID 14 days umeclidinium-vilanterol 62.5-25 mcg/actuation (Anoro Ellipta) 1 inh inhalation DAILY HPI HPI Comments History of Present Illness Details A very pleasant 66-year-old female follows up after recent EGD-for weight loss, chronic nausea-heartburn not resolved by ppi- She tolerated procedure well however still complains of some acid-is omeprazole 20 mg daily, she has very small amounts, she has never been a big eater She has no vomiting, abdominal pain, fever or chills She has a large lymph node left side of neck that is being evaluated as well-she is now waiting CT scan to be done next week [facility] Medical History (Updated 11/25/22 @ 13:17 by Mariluz Belcher PA-C) Blind left eye Breast cancer Carotid stenosis, right Degenerative disc disease, cervical Dysphagia GERD (gastroesophageal reflux disease) History of colon polyps Hypercholesterolemia Left renal stone Migraine Pericardial effusion Thyroid nodule Surgical History H/O lumpectomy H/O lymph node biopsy History of esophagogastroduodenoscopy (EGD) History of lobectomy of thyroid History of shoulder surgery History of tonsillectomy History of vaginal hysterectomy Family History Mother Dementia Father Lung cancer metastatic to bone Maternal Uncle FH: prostate cancer Paternal Uncle FH: prostate cancer Maternal Uncle Myocardial infarct Brother Skin cancer Social History Household Members: Spouse Housing: House Do you presently have visiting nurse or other home services: No Alcohol intake: never Patient Tobacco Use Status: Former Tobacco user Years Smoked: quit 30 years old e-Cigarette/Vaping Use: Never Used Second Hand Smoke Exposure: No Advance Directives Date on File: 01/28/20 Current occupational status: retired 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 Cognitive needs: No Hearing needs: No Vision needs: Yes Review of Systems Const All systems reviewed & are unremarkable except as noted in HPI and below Card Denies chest pain and Denies dyspnea Resp Denies dyspnea GI Reports heartburn Physical Exam Vital Signs: Last Vital Signs Pulse 63 11/25/22 12:03 BP 142/61 H 11/25/22 12:03 BMI result Body Mass Index 18.2 Const General: cooperative, healthy appearing and comfortable Nutritional Appearance: thin and underweight Orientation/consciousness: patient oriented x3 Limitations: no limitations Eyes Sclerae: sclerae normal Resp Effort & Inspection: normal respiratory effort and able to speak in complete sentences Skin General skin exam: no rashes or lesions noted Neuro General: patient oriented x3 Extrem General: Yes full ROM Psych Appearance: grossly normal and well kempt Mental Status: mental status grossly normal Speech and movement: Normal speech and movement present and Clear speech present Attitude: cooperative Thought process: Normal thought process present Thought content: Normal thought content present Insight: Good insight present (Psych) Judgement: Good judgement present (Psych) Results Reviewed Results Reviewed: ndings: Larynx:? Normal Esophagus: Tortuous esophagus with increased tertiary contractions without stricture or ring.? GE junction at 38 cms, small hiatal hernia 38 to 40 cms.? No esophagitis or Worthy's. Esophageal balloon dilation was performed with a 20 mm (60F) CRE balloon x 60 seconds Stomach:?Mild gastric antral erythema without ulcers or erosions - antral biopsies were obtained. Grade 2 flap valve on retroflexed examination of the cardia. Duodenum:?Normal bulb and descending duodenum.? Intervention: Biopsies and balloon dilation as noted above Impression and Post Procedure Diagnosis: Endoscopy Findings: ESOPHAGUS: Tortuous esophagus with increased tertiary contractions without stricture or ring.? GE junction at 38 cms, small hiatal hernia 38 to 40 cms.? No esophagitis or Worthy's. Esophageal balloon dilation was performed with a 20 mm (60F) CRE balloon x 60 seconds STOMACH: mild antral gastritis - no ulcers or erosions Plan: Await pathology results Patient has an appointment on 11/25/22 in the GI Clinic with [facility] Escamilla. Above findings were reviewed with the patient and GERD handout was given in the discharge area Name:?Chantel Hamilton Age/Sex: 66/F Attending: Enrique Evans MD : 1955 Submitted by: Enrique Evans MD Copies to: Vania Matson MD MR #: [id number] ? Status: [facility] Collected: 11/12/22 Location: [facility] Received: 11/12/22 Diagnosis Stomach, antrum, biopsy:? Antral-type with mild chronic inactive inflammation and focal intestinal metaplasia; negative for dysplasia; no Helicobacter organisms seen. Clinical History Pre-Op Dx:? GERD, nausea, abdominal pain, dysphagia Post-Op Dx: GERD, gastritis Microscopic Description Microscopic sections reviewed.? Immunostain for H. pylori is non-reactive. Material Received Gastric antrum bx's, r/o H. Pylori Assessment & Plan Assessment & Plan (1) Gastric intestinal metaplasia: Comment: repeat 3 years w/ mappin- also colon hx polyp Being followed for a neck mass-this is concerning-has CT next week Code(s): K31.A0 - Gastric intestinal metaplasia, unspecified Plan: Advise repeat EGD with gastric biopsy mapping in 3 years for FU of Gastric intestinal metaplasia (2) GERD (gastroesophageal reflux disease): Comment: She will give trial to pantoprazole daily and hope she has better coverage Reflux precautions reviewed Code(s): K21.9 - Gastro-esophageal reflux disease without esophagitis Qualifiers: Esophagitis presence: without esophagitis Qualified Code(s): K21.9 - Gastro-esophageal reflux disease without esophagitis Plan: Pantoprazole 20 mg daily Avoid culprits Plan Advise repeat EGD with gastric biopsy mapping in 3 years for FU of Gastric intestinal metaplasia Medications: New pantoprazole 20 mg PO DAILY 30 days 30 tabs 6RF Patient Instructions: Very pleasant 66-year-old female follows up after recent EGD for acid reflux, nausea and weight loss-poor appetite Tolerated procedure well Continue ppi- will try pantoprazole- Call with progress- EGD 3 years with mapping-she will be due for polyp surveillance colonoscopy at that time Encouraged to call questions or concerns Appreciate the opportunity assist in care this patient Coding Level of Care Code Est Pt Level 3 (75984) Diagnoses Gastric intestinal metaplasia K31.A0 GERD (gastroesophageal reflux disease) K21.9 Esophagitis presence: without esophagitis Time Spent (min) 30
[2022-11-25 12:03] VITALS: BP 142/61; PULSE 63; BMI 18.2
== END 2022-11-25 12:46 | disposition home or self-care (01) ==
PROVIDERS: PCP Internal Medicine; Visit Provider Physician Assistant
DX: K31.A0 Gastric intestinal metaplasia, unspecified (principal); K21.9 Gastro-esophageal reflux disease without esophagitis
CPT/HCPCS: 99213

== ENCOUNTER → 2022-11-25 11:54 | Outpatient (BNVA) | payer MEDICARE, SELFPAY | PROVIDERS: PCP Internal Medicine; Visit Provider Physician Assistant | DX: K31.A0 Gastric intestinal metaplasia, unspecified (principal); K21.9 Gastro-esophageal reflux disease without esophagitis | CPT/HCPCS: 99212 ==

== ENCOUNTER 2022-12-06 09:15 | Outpatient (REF) | payer MEDICARE, SELFPAY ==
--- NOTE | ~2022-12-06 | CT_ITS ---
EXAMINATION: CT SOFT TISSUE NECK WITH CONTRAST CLINICAL INFORMATION: Localized swelling, mass and lump, neck COMPARISON: CT chest 06/18/2011. TECHNIQUE: Following the administration of 60 mL of Omnipaque 350 intravenous contrast, helical imaging was performed in the axial plane with generation of coronal and sagittal reformatted images. This CT examination was performed using dose optimization techniques as appropriate, variously including the following: *Automated exposure control. *Adjustment of mA and/or kV according to patient size (this includes techniques or standardized protocols for targeted exams where dose is matched to indication/reason for exam; i.e. extremities or head). *Use of iterative reconstruction technique. DLP: 269 mGy-cm. FINDINGS: Skin marker is noted overlying the left parotid tail. No adjacent soft tissue abnormality is identified. Nasopharynx/skull base: The fat planes of the skull base and soft tissues of the nasopharynx are unremarkable. The paranasal sinuses and mastoid air cells are well aerated. The temporomandibular joints are normal. Suprahyoid neck: The oropharynx, oral cavity, and bilateral salivary gland tissues are unremarkable. Infrahyoid neck: The hypopharynx and larynx are unremarkable. No aerodigestive tract mass. Thyroid: There are several subcentimeter hypodense nodules in the thyroid gland for which no further imaging follow-up is recommended per size criteria. Lymph nodes: There is no cervical chain lymphadenopathy. Lung apices: Mild pleural-parenchymal scarring at the lung apices. Scattered small solid and groundglass pulmonary nodules measuring up to 4 mm appear stable compared to CT chest from 06/17/2022 Vascular structures: No hemodynamically significant stenosis, dissection, or occlusion. Osseous structures: The osseous structures are intact without suspicious focal lesion. T5 vertebral body hemangioma. Trace anterolisthesis of C3 on C4, mild rightward curvature of the cervical spine, and multilevel mild to moderate cervical spondylosis. Fusion of the left C2-C3 facet joint Other: The imaged portions of the brain parenchyma are unremarkable. CT/CT soft tissue neck w IV con IMPRESSION: Unremarkable soft tissues of the neck. No abnormality is identified in the indicated region along the left parotid tail
[2022-12-06] MEDS: iohexoL 350 MG/ML 100 ML INFUS..BTL IV (09:55)
== END 2022-12-06 09:16 | disposition home or self-care (01) ==
LOC: HO.CT 09:15
PROVIDERS: PCP Internal Medicine; Visit Provider Internal Medicine
DX: R22.1 Localized swelling, mass and lump, neck (principal)
CPT/HCPCS: 70491; Q9967

== ENCOUNTER 2023-02-07 13:50 | Outpatient (AMB) | payer MEDICARE, SELFPAY ==
[2023-02-07 13:51] VITALS: BP 108/62; PULSE 73; O2SAT 97; BMI 18.1
--- NOTE | 2023-02-07 13:51 | MHC.PC.OV ---
Vital Signs 02/07/23 13:51 Height 5 ft 6 in Weight 112 lb 0.2 oz BMI 18.1 BP 108/62 Blood Pressure Location Lt brachial Position Sitting Pulse 73 Pulse Source Pulse Oximeter Pulse Oximetry (%) 97 Oxygen Delivery Method Room Air Intake Visit Reasons: cholesterol, COPD Drug Discovery Informatics Specialist Required: No Allergies oxycodone [Percocet] Allergy (Unknown, Verified 02/07/23 13:51) Unknown rosuvastatin Adverse Reaction (Verified 02/07/23 13:51) myalgia Tobacco use date assessed: 02/07/23 Fall risk assessment: No Falls in past year Last assessed Fall Risk: 02/07/23 HPI cholesterol, COPD HPI Details 67-year-old female with coronary artery disease breast cancer history GERD cervical degenerative disc disease hypercholesterolemia pulmonary nodules COPD coming in for follow-up. Last seen in October 2022. Patient has mammogram is due colonoscopy is due.. December patient was seen by the neurology for the headaches on Topamax diagnosis of chronic migraine without aura topiramate 300 mg at bedtime and fdc reduced headaches so minding to leave and eletriptan patient was told about Nurtec and Ubrelvy concern about a neck mass and a CT scan was done showing unremarkable soft tissues of the neck. Patient was seen by the teletype mechanic also EGD done November 2022 for the gastric intestinal metaplasia advised to repeat 3 years [facility] Medical History (Updated 02/07/23 @ 15:04 by Vania Matson MD) Migraine Dysphagia History of colon polyps Blind left eye Thyroid nodule Carotid stenosis, right Left renal stone GERD (gastroesophageal reflux disease) Degenerative disc disease, cervical Hypercholesterolemia Pericardial effusion Breast cancer Surgical History History of esophagogastroduodenoscopy (EGD) History of shoulder surgery History of tonsillectomy History of vaginal hysterectomy History of lobectomy of thyroid H/O lymph node biopsy H/O lumpectomy Family History Mother Dementia Father Lung cancer metastatic to bone Maternal Uncle FH: prostate cancer Paternal Uncle FH: prostate cancer Maternal Uncle Myocardial infarct Brother Skin cancer Social History Household Members: Spouse Housing: House Do you presently have visiting nurse or other home services: No Alcohol intake: never Patient Tobacco Use Status: Former Tobacco user Years Smoked: quit 30 years old e-Cigarette/Vaping Use: Never Used Second Hand Smoke Exposure: No Advance Directives Date on File: 01/28/20 Current occupational status: retired 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 How often do you have a drink containing alcohol?: 2-4 times a month 2. How many drinks containing alcohol do you have on a typical day when you are drinking?: 1 or 2 3. How often do you have six or more drinks on one occasion?: Never Total Score: 2 SANGITA-7 AMB Questionnaire SANGITA-7 Date SANGITA - 7 assessed: 07/21/22 Source: Developed by Drs. Keith Mast, Deanna Rodriguez, Tk Reddy and colleagues, with an educational kelle from [employer]. Physical exam (Primary Care) Vital Signs: Last Vital Signs Pulse 73 02/07/23 13:51 BP 108/62 02/07/23 13:51 Pulse Ox 97 02/07/23 13:51 Oxygen Delivery Method Room Air 02/07/23 13:51 BMI result Body Mass Index 18.1 Tobacco/Smoking Status: Tobacco use Status Tobacco use date assessed 02/07/23 02/07/23 13:52 Patient Tobacco Use Status Former Tobacco user 02/07/23 13:52 e-Cigarette/Vaping Use Never Used 02/07/23 13:52 Thrive Assessment: Date of Thrive Assessment Date Thrive assessed 07/21/22 02/07/23 13:52 Const General: alert; No acute distress Eyes Conjunctivae: conjunctivae normal Resp Auscultation: clear to auscultation bilaterally Cardio Rate: regular rate Rhythm: regular rhythm GI Inspection: Yes normal to inspection Extrem General: Yes normal to inspection and No edema Office Procedures Flu Questionnaire Does the patient have a severe egg allergy?: No Does the patient have severe life threatening allergies?: No Does the patient have a fever or illness today?: No Has the patient ever had any past reaction to a flu shot?: No Immunizations flu vacc [id number] 6mos up(PF) 60 mcg(15 mcgx4)/0.5 mL IM syringe Performing Provider: Vania Matson MD [facility] Administered by: MURTAZA Delgadillo on 02/07/23 14:01 Dose Route Admin Location Dispensed Lot Number Expiration Date NDC Equity Structurer 0.5 mL IM Left Deltoid 0.5 mL [id number] 10/09/23 [id number] [employer] VIS Given Date VIS Provided VIS Publication Date 02/07/23 Single Vaccine 20 Eligibility Eligibility Date Funding Source Not [facility] Eligible 02/07/23 Private Assessment and Plan Assessment & Plan (1) Gastric intestinal metaplasia: Comment: repeat 3 years w/ mappin- also colon hx polyp November 2022 Being followed for a neck mass-this is concerning-has CT next week Code(s): K31.A0 - Gastric intestinal metaplasia, unspecified Plan: Patient is advised to have an EGD done in 3 years (2) Mass of left side of neck: Code(s): R22.1 - Localized swelling, mass and lump, neck Plan: CT scan done negative (3) Infiltrating ductal carcinoma: Comment: 2003 lumpectomy and radiation and tamoxifen Code(s): C50.919 - Malignant neoplasm of unspecified site of unspecified female breast Plan: Reminded about the mammogram (4) GERD (gastroesophageal reflux disease): Comment: She will give trial to pantoprazole daily and hope she has better coverage Reflux precautions reviewed Code(s): K21.9 - Gastro-esophageal reflux disease without esophagitis Qualifiers: Esophagitis presence: without esophagitis Qualified Code(s): K21.9 - Gastro-esophageal reflux disease without esophagitis Plan: Avoid the foods that causes that usually spicy foods, tomato products, juices, coffee, soda and foods that your sensitive to. After eating do not lie down, allow 3-4 hours before in lie down. And keep the head of bed above 30 degrees to avoid the acid from going up. (5) COPD (chronic obstructive pulmonary disease): Code(s): J44.9 - Chronic obstructive pulmonary disease, unspecified Qualifiers: COPD type: emphysema Emphysema type: unspecified Qualified Code(s): J43.9 - Emphysema, unspecified Plan: Continue with the inhaler as needed (6) Hypercholesterolemia: Code(s): E78.00 - Pure hypercholesterolemia, unspecified Plan: Avoid fried foods, chicken skin, eggs, butter margarine, pastries and meat. Be it pork or beef they have a lot of cholesterol LDL goal of less than 130 and triglyceride of less than 150 patient on simvastatin 5 mg once a day (7) Migraine: Code(s): G43.909 - Migraine, unspecified, not intractable, without status migrainosus Plan: seeing Neurology Dr. Will Orders: Orders Influenza [id number] Immunization Today Z23 - Encounter for immunization Coding Level of Care Code Est Pt Level 4 (15454) Diagnoses Gastric intestinal metaplasia K31.A0 Mass of left side of neck R22.1 Infiltrating ductal carcinoma C50.919 Gastroesophageal reflux disease without esophagitis K21.9 Esophagitis presence: without esophagitis Pulmonary emphysema, unspecified emphysema type J43.9 COPD type: emphysema Emphysema type: unspecified Hypercholesterolemia E78.00 Migraine G43.909
== END 2023-02-07 15:19 | disposition home or self-care (01) ==
PROVIDERS: PCP Internal Medicine; Visit Provider Internal Medicine
DX: K31.A0 Gastric intestinal metaplasia, unspecified (principal); C50.919 Malignant neoplasm of unspecified site of unspecified female breast; J43.9 Emphysema, unspecified; R22.1 Localized swelling, mass and lump, neck; Z23 Encounter for immunization; K21.9 Gastro-esophageal reflux disease without esophagitis; E78.00 Pure hypercholesterolemia, unspecified; G43.909 Migraine, unspecified, not intractable, without status migrainosus
CPT/HCPCS: 90471; 90686; 99214

== ENCOUNTER 2023-02-25 10:50 | Outpatient (AMB) | payer MEDICARE, SELFPAY ==
[2023-02-25 11:14] VITALS: BP 149/65; PULSE 68; O2SAT 99; BMI 18.1
--- NOTE | 2023-02-25 11:14 | A.OFFVIS_ITS ---
Intake Vital Signs 02/25/23 11:14 Height 5 ft 6 in Weight 112 lb 6.972 oz BMI 18.1 BP 149/65 H Blood Pressure Location Lt brachial Position Sitting Pulse 68 Pulse Source Pulse Oximeter Pulse Oximetry (%) 99 Oxygen Delivery Method Room Air Intake Visit Reasons: Yearly Breast Exam Intake Note: Pt presents to the office today for a yearly breat exam. Pt states she is feeling okay and denies any concerns at this time. Allergies oxycodone [Percocet] Allergy (Unknown, Verified 02/25/23 11:16) Unknown rosuvastatin Adverse Reaction (Verified 02/25/23 11:16) myalgia Medication List - Last Reconciled 02/28/23 by Kilo Rangel MD acetaminophen (Tylenol) 325 mg PO QID PRN albuterol sulfate 90 mcg/actuation (ProAir HFA) 2 puffs inhalation Q6H PRN cyanocobalamin (vitamin B-12) 1,000 mcg PO DAILY cyclobenzaprine 10 mg PO TID docusate sodium (Colace) 200 mg (2 x 100 mg) PO BEDTIME hydrocortisone 2.5% (Proctozone-HC) 1 appl MI BID PRN meloxicam 15 mg PO DAILY methylcellulose (laxative) (Citrucel) 500 mg PO TID omeprazole 40 mg PO DAILY 30 days ondansetron HCl 4 mg PO DAILY PRN pantoprazole 20 mg PO DAILY 30 days simvastatin 5 mg PO BEDTIME sumatriptan succinate 50 mg PO .QD PRN 90 days topiramate (Topamax) 100 mg PO BEDTIME triamcinolone acetonide 0.5% 1 appl topical BID 14 days umeclidinium-vilanterol 62.5-25 mcg/actuation (Anoro Ellipta) 1 inh inhalation DAILY HPI HPI Comments History of Present Illness Details 67-year-old female patient, former 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 Sutton presenting for a breast cancer follow-up examination. She was diagnosed with infiltrating ductal carcinoma, 1.2 cm, grade 2, ER MI positive, HER2 Maritza negative. She underwent a right breast lumpectomy with sentinel node biopsy in 2003. Two sentinel nodes were removed 1 of which was positive with a 0.25 mm micrometastasis (T1c N1miM0: Stage II). She subsequently underwent radiation therapy followed by dose dense AC and 5 years of tamoxifen. Her most recent mammogram in November 2022 at [facility] was reported to be normal (report not available at time of dictation). Patient feels well and denies any ongoing breast symptoms. She denies any palpable masses. [facility] Medical History Migraine Dysphagia History of colon polyps Blind left eye Thyroid nodule Carotid stenosis, right Left renal stone GERD (gastroesophageal reflux disease) Degenerative disc disease, cervical Hypercholesterolemia Pericardial effusion Breast cancer Surgical History History of esophagogastroduodenoscopy (EGD) History of shoulder surgery History of tonsillectomy History of vaginal hysterectomy History of lobectomy of thyroid H/O lymph node biopsy H/O lumpectomy Family History Mother Dementia Father Lung cancer metastatic to bone Maternal Uncle FH: prostate cancer Paternal Uncle FH: prostate cancer Maternal Uncle Myocardial infarct Brother Skin cancer Social History Household Members: Spouse Housing: House Do you presently have visiting nurse or other home services: No Alcohol intake: never Patient Tobacco Use Status: Former Tobacco user Years Smoked: quit 30 years old e-Cigarette/Vaping Use: Never Used Second Hand Smoke Exposure: No Advance Directives Date on File: 01/28/20 Current occupational status: 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 Cognitive needs: No Hearing needs: No Vision needs: Yes Review of Systems Const All systems reviewed & are unremarkable except as noted in HPI and below Physical Exam Vital Signs: Last Vital Signs Pulse 68 02/25/23 11:14 BP 149/65 H 02/25/23 11:14 Pulse Ox 99 02/25/23 11:14 Oxygen Delivery Method Room Air 02/25/23 11:14 BMI result Body Mass Index 18.1 Const General: cooperative, no acute distress and well developed Nutritional Appearance: well nourished Orientation/consciousness: patient oriented x3 Limitations: no limitations HEENT Head: Yes normocephalic and Yes atraumatic Ears: hearing grossly normal bilaterally Chest Other: Left breast: No skin change, no nipple retraction, no nipple discharge, no palpable mass, no enlarged lymph nodes. Right breast: No skin change, no nipple retraction, no nipple discharge, no palpable mass, no enlarged lymph nodes Resp Effort & Inspection: normal respiratory effort, no audible wheezes, no cough and no respiratory distress GI Inspection: Yes normal to inspection Skin General skin exam: no rashes or lesions noted Wounds: no wounds Neuro General: patient oriented x3 Extrem General: Yes no clubbing, cyanosis or edema Assessment & Plan Assessment & Plan (1) Infiltrating ductal carcinoma: Comment: 2004 lumpectomy and radiation and tamoxifen Code(s): C50.919 - Malignant neoplasm of unspecified site of unspecified female breast Plan 67-year-old female patient returning for a routine breast examination following a personal history of right breast cancer, status post lumpectomy with needle localization, sentinel node biopsy. She subsequently underwent radiation therapy and dose dense AC followed by tamoxifen for 5 years. She continues to do well and denies any specific breast complaints. Examination today reveals no evidence of recurrence disease in either breast. She should continue monthly self examinations and return in 1 year for a routine breast examination. Follow-up mammogram is recommended in November 2023. She is welcome to call sooner for any concerns. Coding Level of Care Code Est Pt Level 3 (82537) Diagnoses Infiltrating ductal carcinoma C50.919
== END 2023-02-25 13:28 | disposition home or self-care (01) ==
PROVIDERS: PCP Internal Medicine; Visit Provider Surgery
DX: Z85.3 Personal history of malignant neoplasm of breast (principal)
CPT/HCPCS: 99213

== ENCOUNTER → 2023-02-25 10:50 | Outpatient (BNVA) | payer MEDICARE, SELFPAY | PROVIDERS: PCP Internal Medicine; Visit Provider Surgery | DX: C50.919 Malignant neoplasm of unspecified site of unspecified female breast (principal) | CPT/HCPCS: 99212 ==

== ENCOUNTER 2023-03-09 11:27 | Outpatient (AMB) | payer MEDICARE, SELFPAY ==
--- NOTE | 2023-03-09 11:28 | MHC.OFFVIS ---
Intake Vital Signs 03/09/23 11:29 Height 5 ft 6 in Weight 114 lb 10.246 oz BMI 18.5 BP 109/62 Blood Pressure Location Lt brachial Position Sitting Pulse 69 Pulse Source Doppler Pulse Oximetry (%) 100 Oxygen Delivery Method Room Air Intake Visit Reasons: copd Allergies oxycodone [Percocet] Allergy (Unknown, Verified 03/09/23 11:30) Unknown rosuvastatin Adverse Reaction (Verified 03/09/23 11:30) myalgia HPI copd HPI Details 67-year-old lady, former 25 pack-year smoker, quit over 15 years prior with underlying history of prior breast cancer in her 40 status post resection, chemotherapy, and XRT followed for pulmonary nodules noted on screening CT chest and mild COPD.? Her 2nd follow-up CT scan showed stable bilateral 4 mm and under pulmonary nodules.? At the last office visit she has been switched from Spiriva to Anoro. She denies recent exacerbations. Her symptoms are well controlled. [facility] Medical History Migraine Dysphagia History of colon polyps Blind left eye Thyroid nodule Carotid stenosis, right Left renal stone GERD (gastroesophageal reflux disease) Degenerative disc disease, cervical Hypercholesterolemia Pericardial effusion Breast cancer Surgical History History of esophagogastroduodenoscopy (EGD) History of shoulder surgery History of tonsillectomy History of vaginal hysterectomy History of lobectomy of thyroid H/O lymph node biopsy H/O lumpectomy Family History Mother Dementia Father Lung cancer metastatic to bone Maternal Uncle FH: prostate cancer Paternal Uncle FH: prostate cancer Maternal Uncle Myocardial infarct Brother Skin cancer Social History Household Members: Spouse Housing: House Do you presently have visiting nurse or other home services: No Alcohol intake: never Patient Tobacco Use Status: Former Tobacco user Years Smoked: quit 30 years old e-Cigarette/Vaping Use: Never Used Second Hand Smoke Exposure: No Advance Directives Date on File: 01/28/20 Current occupational status: retired 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 Cognitive needs: No Hearing needs: No Vision needs: Yes Physical Exam Vital Signs: Last Vital Signs Pulse 69 03/09/23 11:29 BP 109/62 03/09/23 11:29 Pulse Ox 100 03/09/23 11:29 Oxygen Delivery Method Room Air 03/09/23 11:29 BMI result Body Mass Index 18.5 Const General: no acute distress and alert Nutritional Appearance: not obese Orientation/consciousness: Other orientation findings ( oriented) HEENT Head: Yes atraumatic Eyes General: appearance normal, both eyes and all related structures Sclerae: sclerae normal EOM: EOMs intact bilaterally Neck Neck: Yes supple Lymphatic: no lymphadenopathy noted Resp Effort & Inspection: normal respiratory effort and no use of accessory muscles Auscultation: clear to auscultation bilaterally Cardio Rate: regular rate Rhythm: regular rhythm Heart sounds: no gallops, no murmurs and no rubs Skin General skin exam: other ( warm) Extrem General: No clubbing, No cyanosis and No edema Assessment & Plan Assessment & Plan (1) COPD (chronic obstructive pulmonary disease): Code(s): J44.9 - Chronic obstructive pulmonary disease, unspecified Qualifiers: COPD type: emphysema Emphysema type: unspecified Qualified Code(s): J43.9 - Emphysema, unspecified Plan: Well controlled on Anoro and albuterol MDI. Continue current regimen. (2) Pulmonary nodules: Comment: June 2022 Code(s): R91.8 - Other nonspecific abnormal finding of lung field Plan: Results of follow-up CT chest from June of 2022 reviewed and results of pulmonary nodule stable for over 2 years. No further imaging follow-up is required at this time. Coding Level of Care Code Est Pt Level 4 (90414) Diagnoses Pulmonary emphysema, unspecified emphysema type J43.9 COPD type: emphysema Emphysema type: unspecified Pulmonary nodules R91.8
[2023-03-09 11:29] VITALS: BP 109/62; PULSE 69; O2SAT 100; BMI 18.5
== END 2023-03-09 11:50 | disposition home or self-care (01) ==
PROVIDERS: PCP Internal Medicine; Visit Provider Internal Medicine Pulmonary Disease
DX: J43.9 Emphysema, unspecified (principal); R91.8 Other nonspecific abnormal finding of lung field
CPT/HCPCS: 99214

== ENCOUNTER → 2023-03-09 11:27 | Outpatient (BNVA) | payer MEDICARE, SELFPAY | PROVIDERS: PCP Internal Medicine; Visit Provider Internal Medicine Pulmonary Disease | DX: J43.9 Emphysema, unspecified (principal); R91.8 Other nonspecific abnormal finding of lung field | CPT/HCPCS: 99212 ==

== ENCOUNTER 2023-03-17 07:39 | Outpatient (REF) | payer MEDICARE, SELFPAY ==
[2023-03-17 07:48] VITALS: BMI 17.5
[2023-03-17 07:51] VITALS: BP 136/65; PULSE 72; RESP 16; TEMP 36.1; O2SAT 100
[2023-03-17 08:20] VITALS: BP 154/72; PULSE 68; RESP 16; O2SAT 100
--- NOTE | 2023-03-17 15:09 | P.OP_ITS ---
Operative Note Operative Note Date of Service: 03/17/23 Narrative: Preoperative diagnosis: skin lesion left forehead Postoperative diagnosis: same Procedure: excision of skin lesion left forehead Surgeon: Kilo Rangel MD Toy Assembly Supervisor: none Anesthesia: lidocaine 1% with epinephrine Indications for procedure: 67-year-old female patient presenting with a raised brown lesion located over the left forehead, increasing in size over the last several months. Operative findings: 5 mm brown raised lesion over left forehead excised with 1 mm margins. Specimen: Skin lesion left forehead Estimated blood loss: less than 1 mL Complications: none Procedure details: patient was brought to the minor surgery suite placed in a supine position. The site of surgery was confirmed by the patient in the left forehead. After assuring informed consent the skin was prepped with Betadine and draped in a sterile fashion. Local anesthesia was then infiltrated below the lesion. A transverse incision was made in elliptical fashion around the lesion. Incision was carried down into the subcutaneous tissue and the lesion excised using a scalpel. Lesion was passed off the table and sent to pathology for further examination. Skin was then closed using interrupted 6 0 nylon sutures x2. Sterile dressings consisting of a spot Band-Aid was applied. The patient tolerated the procedure well. She was discharged to home in stable condition.
== END 2023-03-17 07:40 | disposition home or self-care (01) ==
LOC: HO.MS 07:39
PROVIDERS: PCP Internal Medicine; Visit Provider Surgery
PROC: (CPT 11441; principal; 2023-03-17 08:00)
DX: L98.8 Other specified disorders of the skin and subcutaneous tissue (principal)
CPT/HCPCS: 11441; 88304; 88305

== ENCOUNTER → 2023-03-17 07:39 | Outpatient (BNV) | payer MEDICARE, SELFPAY | PROVIDERS: PCP Internal Medicine; Visit Provider Surgery | DX: L82.1 Other seborrheic keratosis (principal) | CPT/HCPCS: 11441 ==

== ENCOUNTER 2023-03-24 14:50 | Outpatient (AMB) | payer MEDICARE, SELFPAY ==
--- NOTE | 2023-03-24 15:11 | A.OFFVIS_ITS ---
Intake Vital Signs 03/24/23 15:18 Height 5 ft 6.5 in Weight 115 lb BMI 18.3 BP 124/60 Blood Pressure Location Lt brachial Position Sitting Pulse 67 Intake Visit Reasons: S/p Exc skin lesion left forehead Intake Note: Patient is seen in office for post op assessment post excision of skin lesion of the left forehead. Pt c/o: denies any concerns, sutures removed at visit surgery:03/15/23 Allergies oxycodone [Percocet] Allergy (Unknown, Verified 03/09/23 11:30) Unknown rosuvastatin Adverse Reaction (Verified 03/09/23 11:30) myalgia Medication List - Last Reconciled 03/24/23 by Kilo Rangel MD acetaminophen (Tylenol) 325 mg PO QID PRN albuterol sulfate 90 mcg/actuation (ProAir HFA) 2 puffs inhalation Q6H PRN cyanocobalamin (vitamin B-12) 1,000 mcg PO DAILY cyclobenzaprine 10 mg PO TID docusate sodium (Colace) 200 mg (2 x 100 mg) PO BEDTIME hydrocortisone 2.5% (Proctozone-HC) 1 appl NE BID PRN meloxicam 15 mg PO DAILY methylcellulose (laxative) (Citrucel) 500 mg PO TID omeprazole 40 mg PO BID ondansetron HCl 4 mg PO DAILY PRN pantoprazole 20 mg PO DAILY 30 days simvastatin 5 mg PO BEDTIME sumatriptan succinate 50 mg PO .QD PRN 90 days topiramate (Topamax) 100 mg PO BEDTIME triamcinolone acetonide 0.5% 1 appl topical BID 14 days umeclidinium-vilanterol 62.5-25 mcg/actuation (Anoro Ellipta) 1 inh inhalation DAILY HPI HPI Comments History of Present Illness Details 67-year-old female patient returning 1 w [place] following excision of a forehead skin lesion. Pathology confirmed a seborrheic keratosis. She tolerated the procedure well and denies any ongoing symptoms. [facility] Medical History Migraine Dysphagia History of colon polyps Blind left eye Thyroid nodule Carotid stenosis, right Left renal stone GERD (gastroesophageal reflux disease) Degenerative disc disease, cervical Hypercholesterolemia Pericardial effusion Breast cancer Surgical History History of esophagogastroduodenoscopy (EGD) History of shoulder surgery History of tonsillectomy History of vaginal hysterectomy History of lobectomy of thyroid H/O lymph node biopsy H/O lumpectomy Family History (Updated 03/24/23 @ 15:45 by Kilo Rangel MD) Mother Dementia Father Lung cancer metastatic to bone Maternal Uncle FH: prostate cancer Paternal Uncle FH: prostate cancer Maternal Uncle Myocardial infarct Brother Skin cancer Primary cutaneous large T-cell lymphoma Social History Household Members: Spouse Housing: House Do you presently have visiting nurse or other home services: No Alcohol intake: never Patient Tobacco Use Status: Former Tobacco user Years Smoked: quit 30 years old e-Cigarette/Vaping Use: Never Used Second Hand Smoke Exposure: No Advance Directives Date on File: 01/28/20 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 Sutures removed and wounds found to be well healed. Assessment & Plan Assessment & Plan (1) Seborrheic keratosis: Code(s): L82.1 - Other seborrheic keratosis Plan Patient returns 1 week following excision of a seborrheic keratosis of the left forehead. She tolerated proceed major well. She should follow up at her previously scheduled annual follow-up breast examination in February 2024. She is welcome to call sooner for any new concerns. Coding Level of Care Code Global (10220) Diagnoses Seborrheic keratosis L82.1
[2023-03-24 15:18] VITALS: BP 124/60; PULSE 67; BMI 18.3
== END 2023-03-24 15:27 | disposition home or self-care (01) ==
PROVIDERS: PCP Internal Medicine; Visit Provider Surgery
DX: L82.1 Other seborrheic keratosis (principal)
CPT/HCPCS: 99024

== ENCOUNTER → 2023-03-24 14:50 | Outpatient (BNVA) | payer MEDICARE, SELFPAY | PROVIDERS: PCP Internal Medicine; Visit Provider Surgery | DX: L82.1 Other seborrheic keratosis (principal) | CPT/HCPCS: 99212 ==

== ENCOUNTER 2023-05-16 13:21 | Outpatient (AMB) | payer MEDICARE, SELFPAY ==
[2023-05-16 13:25] VITALS: BP 112/62; PULSE 71; O2SAT 98; BMI 18.1
--- NOTE | 2023-05-16 13:25 | A.OFFPC_ITS ---
Vital Signs 05/16/23 13:25 Height 5 ft 6.5 in Weight 114 lb BMI 18.1 BP 112/62 Blood Pressure Location Lt brachial Position Sitting Pulse 71 Pulse Source Pulse Oximeter Pulse Oximetry (%) 98 Oxygen Delivery Method Room Air Intake Visit Reasons: COPD Allergies oxycodone [Percocet] Allergy (Unknown, Verified 05/16/23 13:26) Unknown rosuvastatin Adverse Reaction (Verified 05/16/23 13:26) myalgia Tobacco use date assessed: 05/16/23 Fall risk assessment: No Falls in past year Last assessed Fall Risk: 05/16/23 Dental Screening Dental Screen Date: 05/16/23 Did you have a dental visit in the last 12 months?: Yes Did you have a dental problem in the last 6 months where you did not have access to dental care?: No Was dental information given to patient?: Patient has dentist HPI COPD HPI Details 67-year-old female with a history of adamaris ast cancer COPD GERD hypercholesterolemia migraine coming in for follow-up. Last seen in January 2023. Patient's mammogram is up-to-date November 2022 colonoscopy is up-to-date December 2020 in EGD November 2022. Patient had seborrheic keratosis and had procedure done under the surgeon in March 2023. Patient also follows up with Pulmonary for the COPD well controlled on Anoro and albuterol pulmonary nodules being followed up June 2022 since it has been stable over the last 2 years no more follow-up. As for the breast cancer follows up yearly breast exam infiltrating ductal carcinoma right breast 2003. was told no more CT scan but still has a schedule. [facility] Medical History Migraine Dysphagia History of colon polyps Blind left eye Thyroid nodule Carotid stenosis, right Left renal stone GERD (gastroesophageal reflux disease) Degenerative disc disease, cervical Hypercholesterolemia Pericardial effusion Breast cancer Surgical History History of esophagogastroduodenoscopy (EGD) History of shoulder surgery History of tonsillectomy History of vaginal hysterectomy History of lobectomy of thyroid H/O lymph node biopsy H/O lumpectomy Family History (Updated 03/24/23 @ 15:45 by Kilo Rangel MD) Mother Dementia Father Lung cancer metastatic to bone Maternal Uncle FH: prostate cancer Paternal Uncle FH: prostate cancer Maternal Uncle Myocardial infarct Brother Skin cancer Primary cutaneous large T-cell lymphoma Social History Household Members: Spouse Housing: House Do you presently have visiting nurse or other home services: No Alcohol intake: never Patient Tobacco Use Status: Former Tobacco user Tobacco use type: Cigarette Years Smoked: quit 30 years old e-Cigarette/Vaping Use: Never Used Second Hand Smoke Exposure: No Advance Directives Date on File: 01/28/20 Current occupational status: retired 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 1. Little interest or pleasure in doing things: not at all 2. Feeling down, depressed, or hopeless: not at all 3. Trouble falling or staying asleep, or sleeping too much: not at all 4. Feeling tired or having little energy: not at all 5. Poor appetite or overeating: not at all 6. Feeling bad about yourself - or that you are a failure or have let yourself or your family down: not at all 7. Trouble concentrating on things, such as reading the newspaper or watching television: not at all 8. Moving or speaking so slowly that other people could have noticed. Or the opposite - being so fidgety or restless that you have been moving around a lot more than usual: not at all 9. Thoughts that you would be better off or of hurting yourself in some way: not at all Total score: 0 Depression Screening Interpretation: Negative Depression Screening Done: Yes Source: Developed by Drs. Keith Mast, Deanna Rodriguez, Tk Reddy and colleagues, with an educational kelle from [employer]. Thrive Questionnaire Date Thrive assessed: 05/16/23 I am a: Patient What is your living situation today?: I have a steady place to live Within the past 12 months, did the food you bought not last and you didn't have the money to get more?: Never true Within the past 12 months, did you worry whether your food would run out before you got money to buy more?: Never true Do you have trouble paying for medicines?: No Do you have trouble getting transportation to medical appointments?: No Do you have trouble paying your heating and electricity bill?: No Do you have trouble taking care of your child, family member or friend?: No Do you have trouble with day-to-day activities such as bathing, preparing meals, shopping, managing finances, etc.?: No Are you currently unemployed and looking for a job?: No Are you interested in more education?: No Currently or been in a relationship where the following occur: no concerns reported THRIVE Score: 0 AUDIT C Alcohol Use Questionnaire (AUDIT-C) 1. How often do you have a drink containing alcohol?: 2-4 times a month 2. How many drinks containing alcohol do you have on a typical day when you are drinking?: 1 or 2 3. How often do you have six or more drinks on one occasion?: Never Total Score: 2 SANGITA-7 AMB Questionnaire SANGITA-7 Date SANGITA - 7 assessed: 05/16/23 Feeling nervous, anxious, or on edge: 0 = Not at all Not being able to stop or control worryin = Not at all Worrying too much about different things: 0 = Not at all Trouble relaxin = Not at all Being so restless that it is hard to sit still: 0 = Not at all Becoming easily annoyed or irritable: 0 = Not at all Feeling afraid as if something awful might happen: 0 = Not at all Total SANGITA-7 score (0-4 normal; 5-9 mild; 10-14 moderate; 15-21 severe): 0 Source: Developed by Drs. Keith Mast, Deanna Rodriguez, Tk Reddy and colleagues, with an educational kelle from [employer]. Physical exam (Primary Care) Vital Signs: Oxygen Delivery Method Room Air 05/16/23 13:25 Tobacco/Smoking Status: Tobacco use Status Tobacco use date assessed 05/16/23 05/16/23 13:27 Patient Tobacco Use Status Former Tobacco user 05/16/23 13:27 Tobacco use type Cigarette 05/16/23 13:27 e-Cigarette/Vaping Use Never Used 05/16/23 13:27 PHQ-9: PHQ-9 Score PHQ-9: Total score 0 05/16/23 13:27 Depression Screening Interpretation: Negative Thrive Assessment: Date of Thrive Assessment Date Thrive assessed 05/16/23 05/16/23 13:27 Currently or been in a relationship where the following occur: no concerns reported Const General: alert; No acute distress Eyes Conjunctivae: conjunctivae normal Resp Auscultation: clear to auscultation bilaterally Cardio Rate: regular rate Rhythm: regular rhythm GI Inspection: Yes normal to inspection Extrem General: Yes normal to inspection and No edema Assessment and Plan Assessment & Plan (1) COPD (chronic obstructive pulmonary disease): Code(s): J44.9 - Chronic obstructive pulmonary disease, unspecified Qualifiers: COPD type: emphysema Emphysema type: unspecified Qualified Code(s): J43.9 - Emphysema, unspecified Plan: Continue with the inhalers Anoro and albuterol patient follows up with Pulmonary (2) Hypercholesterolemia: Code(s): E78.00 - Pure hypercholesterolemia, unspecified Plan: Avoid fried foods, chicken skin, eggs, butter margarine, pastries and meat. Be it pork or beef they have a lot of cholesterol continue with simvastatin 5 mg once a day October 2022 last blood work (3) GERD (gastroesophageal reflux disease): Comment: She will give trial to pantoprazole daily and hope she has better coverage Reflux precautions reviewed Code(s): K21.9 - Gastro-esophageal reflux disease without esophagitis Qualifiers: Esophagitis presence: without esophagitis Qualified Code(s): K21.9 - Gastro-esophageal reflux disease without esophagitis Plan: Avoid the foods that causes that usually spicy foods, tomato products, juices, coffee, soda and foods that your sensitive to. After eating do not lie down, allow 3-4 hours before in lie down. And keep the head of bed above 30 degrees to avoid the acid from going up. On pantoprazole (4) Infiltrating ductal carcinoma: Comment: 2003 right breast lumpectomy and radiation and tamoxifen Code(s): C50.919 - Malignant neoplasm of unspecified site of unspecified female breast Plan: Mammograms up-to-date continued follow-up with the surgeon for breast exam (5) Atherosclerotic cardiovascular disease: Code(s): I25.10 - Atherosclerotic heart disease of [place] coronary artery without angina pectoris Plan: Control the cholesterol, weight, blood pressure (6) Degenerative disc disease, cervical: Comment: MRI 2021 Code(s): M50.30 - Other cervical disc degeneration, unspecified cervical region Orders: Orders Complete Blood Count Auto Diff 5 Months E78.00 - Pure hypercholesterolemia, unspecified Free T4 (Free Thyroxine) 5 Months E78.00 - Pure hypercholesterolemia, unspecified Lipid Panel 5 Months E78.00 - Pure hypercholesterolemia, unspecified Vitamin D 25-OH Total 5 Months E78.00 - Pure hypercholesterolemia, unspecified Blood Urea Nitrogen 5 Months E78.00 - Pure hypercholesterolemia, unspecified Thyroid Stimulating Hormone 5 Months E78.00 - Pure hypercholesterolemia, unspecified Vitamin B12 and Folate 5 Months E78.00 - Pure hypercholesterolemia, unspecified Hemoglobin A1c 5 Months E78.00 - Pure hypercholesterolemia, unspecified Medications: Refilled umeclidinium-vilanterol 62.5-25 mcg/actuation (Anoro Ellipta) 1 inh inhalation DAILY 60 ea 3RF E78.00 - Pure hypercholesterolemia, unspecified Coding Level of Care Code Est Pt Level 4 (79787) Diagnoses Pulmonary emphysema, unspecified emphysema type J43.9 COPD type: emphysema Emphysema type: unspecified Hypercholesterolemia E78.00 Gastroesophageal reflux disease without esophagitis K21.9 Esophagitis presence: without esophagitis Infiltrating ductal carcinoma C50.919 Atherosclerotic cardiovascular disease I25.10 Degenerative disc disease, cervical M50.30
== END 2023-05-16 13:48 | disposition home or self-care (01) ==
PROVIDERS: PCP Internal Medicine; Visit Provider Internal Medicine
DX: J43.9 Emphysema, unspecified (principal); E78.00 Pure hypercholesterolemia, unspecified; K21.9 Gastro-esophageal reflux disease without esophagitis; C50.919 Malignant neoplasm of unspecified site of unspecified female breast; I25.10 Atherosclerotic heart disease of native coronary artery without angina pectoris; M50.30 Other cervical disc degeneration, unspecified cervical region
CPT/HCPCS: 99214

== ENCOUNTER 2023-06-28 10:48 | Outpatient (REF) | payer MEDICARE, SELFPAY ==
--- NOTE | ~2023-06-28 | CT_ITS ---
EXAMINATION: CT CHEST WITHOUT CONTRAST CLINICAL INFORMATION: Follow-up pulmonary nodules. COMPARISON: Prior CT examinations of the chest, most recently 06/17/2022. TECHNIQUE: Multidetector volumetric CT imaging of the chest was done. Axial MIP volume rendering provided. Sagittal and coronal reformatted images were obtained. This CT examination was performed using dose optimization techniques as appropriate, variously including the following: *Automated exposure control *Adjustment of mA and/or kV according to patient size (this includes techniques or standardized protocols for targeted exams where dose is matched to indication/reason for exam; i.e. extremities or head) *Use of iterative reconstruction technique DLP: 79 mGy-cm FINDINGS: SPECIMEN PREPARATION ASSISTANT: There is hyperinflation. The lungs are symmetrically well-expanded and grossly clear. LUNGS: There are numerous bilateral nonspecific, noncalcified and calcified pulmonary nodules. On the right, one of the largest of these noncalcified nodule is located at the lateral base, measuring 4 mm (5:415). On the left, one of the largest nodules is a 4 mm benign fissural lymph node applied to the medial left major fissure (5:295). These nodules are not significantly changed from 01/28/2020, and they are considered benign. There are multiple bilateral scattered endobronchial densities, likely inspissated mucous. No mass, infiltrate or groundglass opacity is seen. There is no generalized increase in peripheral interlobular septal markings. There are foci of minor scar/subsegmental atelectasis seen inferiorly within the right middle lobe and in the lower lingula, without associated focal airway obstruction. No generalized small airway thickening is seen. No bronchiectasis is seen. The central airways appear patent. MEDIASTINUM: The thyroid is unremarkable. There is no thoracic aortic aneurysm. There are mild atherosclerotic calcifications of the great vessel origins and thoracic aorta. No mediastinal or hilar lymphadenopathy is seen. CORONARY ARTERY CALCIFICATION: Mild. PLEURA: There is no pleural effusion. No pleural mass or thickening. AXILLA: No lymphadenopathy. UPPER ABDOMEN: Unremarkable. OSSEOUS STRUCTURES: There is a hemangioma of the T5 vertebral body, with corduroy appearance. There is multi-level mild mid thoracic anterior endplate arthropathy. No acute or aggressive osseous finding is seen. CT/CT chest wo IV con IMPRESSION: 1. Multiple benign, stable bilateral noncalcified and calcified lung nodules are redemonstrated. 2. There are bilateral scattered endobronchial densities, likely inspissated mucous. 3. There is minor scar/subsegmental atelectasis seen inferiorly within the right middle lobe and lingula. No associated central airway obstruction is seen. 4. There is no mass, infiltrate or groundglass opacity. 5. No thoracic lymphadenopathy or pleural effusion is seen. 6. There is no aggressive osseous lesion. Fleischner guidelines were followed.
== END 2023-06-28 10:49 | disposition home or self-care (01) ==
LOC: HO.CT 10:48
PROVIDERS: PCP Internal Medicine; Visit Provider Internal Medicine Pulmonary Disease
DX: R91.8 Other nonspecific abnormal finding of lung field (principal)
CPT/HCPCS: 71250

== ENCOUNTER 2023-07-20 13:38 | Outpatient (AMB) | payer MEDICARE, SELFPAY ==
[2023-07-20 13:41] VITALS: BP 114/72; PULSE 77; O2SAT 98; BMI 18.0
--- NOTE | 2023-07-20 13:41 | A.OFFPC_ITS ---
Vital Signs 07/20/23 13:41 Height 5 ft 6.5 in Weight 113 lb BMI 18.0 BP 114/72 Blood Pressure Location Lt brachial Position Sitting Pulse 77 Pulse Source Pulse Oximeter Pulse Oximetry (%) 98 Oxygen Delivery Method Room Air Intake Visit Reasons: Left Cataract procedure Intake Note: EKG is not necessary and no routine lab or diagnostic screening is necessary according to form from [facility] [place]. Allergies oxycodone [Percocet] Allergy (Unknown, Verified 07/20/23 13:41) Unknown rosuvastatin Adverse Reaction (Verified 07/20/23 13:41) myalgia Medication List - Last Reconciled 07/20/23 by Vania Matson, acetaminophen (Tylenol) 325 mg PO QID PRN albuterol sulfate 90 mcg/actuation (ProAir HFA) 2 puffs inhalation Q6H PRN cyanocobalamin (vitamin B-12) 1,000 mcg PO DAILY cyclobenzaprine 10 mg PO TID docusate sodium (Colace) 200 mg (2 x 100 mg) PO BEDTIME hydrocortisone 2.5% (Proctozone-HC) 1 appl PA BID PRN meloxicam 15 mg PO DAILY methylcellulose (laxative) (Citrucel) 500 mg PO TID omeprazole 40 mg PO BID ondansetron HCl 4 mg PO DAILY PRN simvastatin 5 mg PO BEDTIME sumatriptan succinate 50 mg PO .QD PRN 90 days topiramate (Topamax) 100 mg PO BEDTIME triamcinolone acetonide 0.5% 1 appl topical BID 14 days umeclidinium-vilanterol 62.5-25 mcg/actuation (Anoro Ellipta) 1 inh inhalation DAILY Tobacco use date assessed: 05/16/23 Fall risk assessment: No Falls in past year Last assessed Fall Risk: 07/20/23 Dental Screening Dental Screen Date: 07/20/23 Did you have a dental visit in the last 12 months?: Yes Did you have a dental problem in the last 6 months where you did not have access to dental care?: No Was dental information given to patient?: Patient has dentist HPI Left Cataract procedure HPI Details 67-year-old female with a history of cor onary artery disease breast cancer COPD hypercholesterolemia GERD and degenerative disc disease coming in for preoperative evaluation for eye surgery. Patient was last seen in May 2023. Patient's mammogram is up-to-date colonoscopy is up-to-date. Left cataract surgery 05/31/2023 under [email or web address] n no v [facility] Medical History Migraine Dysphagia History of colon polyps Blind left eye Thyroid nodule Carotid stenosis, right Left renal stone GERD (gastroesophageal reflux disease) Degenerative disc disease, cervical Hypercholesterolemia Pericardial effusion Breast cancer Surgical History History of esophagogastroduodenoscopy (EGD) History of shoulder surgery History of tonsillectomy History of vaginal hysterectomy History of lobectomy of thyroid H/O lymph node biopsy H/O lumpectomy Family History (Updated 03/24/23 @ 15:45 by Kilo Rangel MD) Mother Dementia Father Lung cancer metastatic to bone Maternal Uncle FH: prostate cancer Paternal Uncle FH: prostate cancer Maternal Uncle Myocardial infarct Brother Skin cancer Primary cutaneous large T-cell lymphoma Social History Household Members: Spouse Housing: House Do you presently have visiting nurse or other home services: No Alcohol intake: never Patient Tobacco Use Status: Former Tobacco user Tobacco use type: Cigarette Years Smoked: quit 30 years old e-Cigarette/Vaping Use: Never Used Second Hand Smoke Exposure: No Advance Directives Date on File: 01/28/20 Current occupational status: retired 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 1. Little interest or pleasure in doing things: not at all 2. Feeling down, depressed, or hopeless: not at all 3. Trouble falling or staying asleep, or sleeping too much: not at all 4. Feeling tired or having little energy: not at all 5. Poor appetite or overeating: not at all 6. Feeling bad about yourself - or that you are a failure or have let yourself or your family down: not at all 7. Trouble concentrating on things, such as reading the newspaper or watching television: not at all 8. Moving or speaking so slowly that other people could have noticed. Or the opposite - being so fidgety or restless that you have been moving around a lot more than usual: not at all 9. Thoughts that you would be better off or of hurting yourself in some way: not at all Total score: 0 Depression Screening Interpretation: Negative Depression Screening Done: Yes Source: Developed by Drs. Keith Mast, Deanna Rodriguez, Tk Reddy and colleagues, with an educational kelle from [employer]. Thrive Questionnaire Date Thrive assessed: 07/20/23 I am a: Patient What is your living situation today?: I have a steady place to live Within the past 12 months, did the food you bought not last and you didn't have the money to get more?: Never true Within the past 12 months, did you worry whether your food would run out before you got money to buy more?: Never true Do you have trouble paying for medicines?: No Do you have trouble getting transportation to medical appointments?: No Do you have trouble paying your heating and electricity bill?: No Do you have trouble taking care of your child, family member or friend?: No Do you have trouble with day-to-day activities such as bathing, preparing meals, shopping, managing finances, etc.?: No Are you currently unemployed and looking for a job?: No Are you interested in more education?: No Currently or been in a relationship where the following occur: no concerns reported THRIVE Score: 0 AUDIT C Alcohol Use Questionnaire (AUDIT-C) 1. How often do you have a drink containing alcohol?: 2-4 times a month 2. How many drinks containing alcohol do you have on a typical day when you are drinking?: 1 or 2 3. How often do you have six or more drinks on one occasion?: Never Total Score: 2 SANGITA-7 AMB Questionnaire SANGITA-7 Date SANGITA - 7 assessed: 07/20/23 Feeling nervous, anxious, or on edge: 0 = Not at all Not being able to stop or control worryin = Not at all Worrying too much about different things: 0 = Not at all Trouble relaxin = Not at all Being so restless that it is hard to sit still: 0 = Not at all Becoming easily annoyed or irritable: 0 = Not at all Feeling afraid as if something awful might happen: 0 = Not at all Total SANGITA-7 score (0-4 normal; 5-9 mild; 10-14 moderate; 15-21 severe): 0 Source: Developed by Drs. Keith Mast, Deanna Rodriguez, Tk Reddy and colleagues, with an educational kelle from [employer]. Review of Systems Const Denies poor appetite and Denies weakness Eyes Denies no additional complaints ENT Reports Normal hearing present, Denies dizziness, Denies nasal congestion, Denies tinnitus and Denies sore throat Card Denies chest pain, Denies syncope, Denies rapid heart rate and Denies dyspnea Resp Denies cough and Denies dyspnea GI Denies change in stool character, Reports constipation, Denies diarrhea, Denies nausea and Denies vomiting Denies urinary frequency, Denies difficulty voiding and Denies dysuria Neuro Reports Normal hearing present, Denies confusion, Denies dizziness, Denies syncope and Denies weakness Psych Denies confusion Physical exam (Primary Care) Vital Signs: Last Vital Signs Pulse 77 07/20/23 13:41 BP 114/72 07/20/23 13:41 Pulse Ox 98 07/20/23 13:41 Oxygen Delivery Method Room Air 07/20/23 13:41 BMI result Body Mass Index 18.0 Tobacco/Smoking Status: Tobacco use Status Tobacco use date assessed 05/16/23 07/20/23 13:43 Patient Tobacco Use Status Former Tobacco user 07/20/23 13:43 Tobacco use type Cigarette 07/20/23 13:43 e-Cigarette/Vaping Use Never Used 07/20/23 13:43 PHQ-9: PHQ-9 Score PHQ-9: Total score 0 07/20/23 13:43 Depression Screening Interpretation: Negative Thrive Assessment: Date of Thrive Assessment Date Thrive assessed 07/20/23 07/20/23 13:43 Currently or been in a relationship where the following occur: no concerns reported Const General: No confusion Orientation/consciousness: No confusion HENMT Head: Yes normocephalic Ears: external ears normal and TM's normal bilaterally Face and sinus: Yes normal facial exam Mouth: moist mucous membranes Throat: Yes tonsils normal Eyes Conjunctivae: conjunctivae normal Pupils: Equal, round and reactive pupils present and Pupil accommodation reflex normal Direct Ophthalmoscopy: normal light reflex Neck Neck: No lymphadenopathy Thyroid: Thyroid normal Chest Chest palpation & inspection: normal inspection of the chest Resp Effort & Inspection: normal respiratory effort and no audible wheezes Auscultation: clear to auscultation bilaterally, no crackles, no wheezes and lung sounds not diminished Cardio Rate: regular rate Rhythm: regular rhythm Peripheral pulses: radial pulses present and dorsalis pedis present GI Palpation (GI): no masses Auscultation: normal bowel sounds and normoactive bowel sounds Rectal Exam - Female: deferred Skin General skin exam: no rashes or lesions noted Rashes: no rashes Neuro General: No confusion Cranial nerves: Yes Equal, round and reactive pupils present and Yes Normal hearing present Cognition (Neuro): normal cognition Gait exam (Neuro): Normal gait present Motor exam (neuro): 5/5 motor strength present throughout Deep tendon reflexes (DTR's): Right brachioradialis reflex intensity grade: 2+, Left brachioradialis reflex intensity grade: 2+, Right patellar reflex intensity grade: 2+ and Left patellar reflex intensity grade: 2+ Extrem General: No edema Assessment and Plan Assessment & Plan (1) Preop exam for internal medicine: Code(s): Z01.818 - Encounter for other preprocedural examination Plan: Patient is advised to use the inhalers as needed. Patient belongs to the low risk category for any cardiac complication and with the low risk cataract surgery , no workup is needed at this time and may proceed with the contemplated procedure. Discussed about taking omeprazole prior to the surgery and p.r.n. Tylenol for the neck pain. Thank you for letting me participate the care of this patient. (2) COPD (chronic obstructive pulmonary disease): Code(s): J44.9 - Chronic obstructive pulmonary disease, unspecified Qualifiers: COPD type: emphysema Emphysema type: unspecified Qualified Code(s): J43.9 - Emphysema, unspecified Plan: Continue with the inhalers as needed (3) Hypercholesterolemia: Code(s): E78.00 - Pure hypercholesterolemia, unspecified Plan: Avoid fried foods, chicken skin, eggs, butter margarine, pastries and meat. Be it pork or beef they have a lot of cholesterol presently on simvastatin 5 mg once a day (4) GERD (gastroesophageal reflux disease): Comment: She will give trial to pantoprazole daily and hope she has better coverage Reflux precautions reviewed Code(s): K21.9 - Gastro-esophageal reflux disease without esophagitis Qualifiers: Esophagitis presence: without esophagitis Qualified Code(s): K21.9 - Gastro-esophageal reflux disease without esophagitis Plan: Avoid the foods that causes that usually spicy foods, tomato products, juices, coffee, soda and foods that your sensitive to. After eating do not lie down, allow 3-4 hours before in lie down. And keep the head of bed above 30 degrees to avoid the acid from going up. (5) Degenerative disc disease, cervical: Comment: MRI 2021 Code(s): M50.30 - Other cervical disc degeneration, unspecified cervical region Plan: Keep active (6) Infiltrating ductal carcinoma: Comment: 2003 right breast lumpectomy and radiation and tamoxifen Code(s): C50.919 - Malignant neoplasm of unspecified site of unspecified female breast Plan: Patient is up-to-date with mammogram (7) Atherosclerotic cardiovascular disease: Code(s): I25.10 - Atherosclerotic heart disease of [place] coronary artery without angina pectoris Plan: Control the cholesterol, weight, blood pressure Coding Level of Care Code Est Pt Level 4 (09986) Diagnoses Preop exam for internal medicine Z01.818 Pulmonary emphysema, unspecified emphysema type J43.9 COPD type: emphysema Emphysema type: unspecified Hypercholesterolemia E78.00 Gastroesophageal reflux disease without esophagitis K21.9 Esophagitis presence: without esophagitis Degenerative disc disease, cervical M50.30 Infiltrating ductal carcinoma C50.919 Atherosclerotic cardiovascular disease I25.10
== END 2023-07-20 14:08 | disposition home or self-care (01) ==
PROVIDERS: PCP Internal Medicine; Visit Provider Internal Medicine
DX: Z01.818 Encounter for other preprocedural examination (principal); H26.9 Unspecified cataract; J43.9 Emphysema, unspecified; I25.10 Atherosclerotic heart disease of native coronary artery without angina pectoris; K21.9 Gastro-esophageal reflux disease without esophagitis; M50.30 Other cervical disc degeneration, unspecified cervical region; C50.919 Malignant neoplasm of unspecified site of unspecified female breast
CPT/HCPCS: 99214

== ENCOUNTER 2023-10-04 09:54 | Outpatient (REF) | payer MEDICARE, SELFPAY ==
[2023-10-04 13:10] LABS: MANUAL DIFF FLAG NO
[2023-10-04 13:27] LABS: Basophils Percent Auto 0.7 % (0-2); Eosinophils Absolute Auto 0.1 X10*3/uL (0.0-0.4); Eosinophils Percent Auto 2.2 % (0-4); Hematocrit 38.5 % (37.0-47.0); Imm Gran Abs Auto 0.01 X10*3/uL (0.00-0.03); Imm Gran Pct Auto 0.2 % (0.0-0.4); Lymphocytes Absolute Auto 1.1 X10*3/uL (1.2-4.9); Mean Corpuscular HGB Conc 33.8 g/dl (31.0-35.0); Mean Corpuscular Hemoglobin 30.7 pg (27.0-33.0); Mean Platelet Volume 9.5 fL (9.4-12.3); Monocytes Absolute Auto 0.3 X10*3/uL (0.1-1.2); Monocytes Percent Auto 7.4 % (2-11); Neutrophils Absolute Auto 2.5 x10*3/uL (2.0-8.3); Neutrophils Percent Auto 62.5 % (45-73); Platelet Count 223 X10*3/uL (160-400); Red Blood Count 4.23 X10*6/uL (4.20-5.50)
[2023-10-04 13:46] LABS: Blood Urea Nitrogen 15 mg/dL (9-16); Cholesterol 206 mg/dL (<200); Estimated Average Glucose 103 mg/dL; HDL Cholesterol 63 mg/dL (>40); Hemoglobin A1c % 5.2 % (<6.0); LDL Cholesterol Calculated 125 mg/dL (<100); Triglycerides 93 mg/dL (<150)
[2023-10-04 14:08] LABS: Free T4 (Free Thyroxine) 0.72 ng/dL (0.71-1.85); Thyroid Stimulating Hormone 2.01 uIU/mL (0.32-4.0); Vitamin D 25-OH Total 24.7 ng/mL (>30)
[2023-10-04 14:10] LABS: Folate 6.7 ng/mL (> or = 4.0); Vitamin B12 924 pg/mL (200-900)
== END 2023-10-04 09:55 | disposition home or self-care (01) ==
LOC: HO.HMGCLDS 09:54
PROVIDERS: PCP Internal Medicine; Visit Provider Internal Medicine
DX: E78.00 Pure hypercholesterolemia, unspecified (principal)
CPT/HCPCS: 36415; 80061; 82306; 82607; 82746; 83036; 84439; 84443; 84520; 85025

== ENCOUNTER 2023-10-18 12:22 | Outpatient (AMB) | payer MEDICARE, SELFPAY ==
--- NOTE | 2023-10-18 12:26 | A.OFFPC_ITS ---
Vital Signs 10/18/23 12:27 Height 5 ft 6.5 in Weight 111 lb BMI 17.6 BP 104/62 Blood Pressure Location Lt brachial Position Sitting Pulse 85 Pulse Source Pulse Oximeter Pulse Oximetry (%) 98 Oxygen Delivery Method Room Air Intake Visit Reasons: ANNUAL Intake Note: Feeling a little off balance. Dizzy when standing up. Allergies oxycodone [Percocet] Allergy (Unknown, Verified 10/18/23 12:27) Unknown rosuvastatin Adverse Reaction (Verified 10/18/23 12:27) myalgia Medication List - Last Reconciled 10/18/23 by Vania Matson MD acetaminophen (Tylenol) 325 mg PO QID PRN albuterol sulfate 90 mcg/actuation (ProAir HFA) 2 puffs inhalation Q6H PRN cyanocobalamin (vitamin B-12) 1,000 mcg PO DAILY cyclobenzaprine 10 mg PO TID docusate sodium (Colace) 200 mg (2 x 100 mg) PO BEDTIME hydrocortisone 2.5% (Proctozone-HC) [address] BID PRN meloxicam 15 mg PO DAILY methylcellulose (laxative) (Citrucel) 500 mg PO TID omeprazole 40 mg PO BID ondansetron HCl 4 mg PO DAILY PRN simvastatin 5 mg PO BEDTIME sumatriptan succinate 50 mg PO .QD PRN 90 days topiramate (Topamax) 300 mg PO BEDTIME triamcinolone acetonide 0.5% 1 appl topical BID 14 days umeclidinium-vilanterol 62.5-25 mcg/actuation (Anoro Ellipta) 1 inh inhalation DAILY Tobacco use date assessed: 05/16/23 Fall risk assessment: No Falls in past year Last assessed Fall Risk: 10/18/23 Dental Screening Dental Screen Date: 07/20/23 HPI ANNUAL HPI Details 67-year-old female with a 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 Last seen in July 2023 for cataract procedures. Mammogram is up-to-date 11/2022 colonoscopy is up-to-date December 2020 BPV. has dysphagia and PFSH Medical History Migraine Dysphagia History of colon polyps Blind left eye Thyroid nodule Carotid stenosis, right Left renal stone GERD (gastroesophageal reflux disease) Degenerative disc disease, cervical Hypercholesterolemia Pericardial effusion Breast cancer Surgical History History of esophagogastroduodenoscopy (EGD) History of shoulder surgery History of tonsillectomy History of vaginal hysterectomy History of lobectomy of thyroid H/O lymph node biopsy H/O lumpectomy Family History (Updated 03/24/23 @ 15:45 by Kilo Rangel MD) Mother Dementia Father Lung cancer metastatic to bone Maternal Uncle FH: prostate cancer Paternal Uncle FH: prostate cancer Maternal Uncle Myocardial infarct Brother Skin cancer Primary cutaneous large T-cell lymphoma Social History Household Members: Spouse Housing: House Do you presently have visiting nurse or other home services: No Alcohol intake: never Patient Tobacco Use Status: Former Tobacco user Tobacco use type: Cigarette Years Smoked: quit 30 years old e-Cigarette/Vaping Use: Never Used Second Hand Smoke Exposure: No Advance Directives Date on File: 01/28/20 Current occupational status: retired 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 1. Little interest or pleasure in doing things: not at all 2. Feeling down, depressed, or hopeless: not at all 3. Trouble falling or staying asleep, or sleeping too much: not at all 4. Feeling tired or having little energy: not at all 5. Poor appetite or overeating: not at all 6. Feeling bad about yourself - or that you are a failure or have let yourself or your family down: not at all 7. Trouble concentrating on things, such as reading the newspaper or watching television: not at all 8. Moving or speaking so slowly that other people could have noticed. Or the opposite - being so fidgety or restless that you have been moving around a lot more than usual: not at all 9. Thoughts that you would be better off or of hurting yourself in some way: not at all Total score: 0 Depression Screening Interpretation: Negative Depression Screening Done: Yes Source: Developed by Drs. Keith Mast, Deanna Rodriguez, Tk Reddy and colleagues, with an educational kelle from [employer]. Thrive Questionnaire Date Thrive assessed: 07/20/23 AUDIT C Alcohol Use Questionnaire (AUDIT-C) 1. How often do you have a drink containing alcohol?: 2-4 times a month 2. How many drinks containing alcohol do you have on a typical day when you are drinking?: 1 or 2 3. How often do you have six or more drinks on one occasion?: Never Total Score: 2 SANGITA-7 AMB Questionnaire SANGITA-7 Date SANGITA - 7 assessed: 07/20/23 Source: Developed by Drs. Keith Mast, Deanna Rodriguez, Tk Reddy and colleagues, with an educational kelle from [employer]. Review of Systems Const Denies poor appetite and Denies weakness Eyes Denies no additional complaints ENT Reports Normal hearing present, Denies dizziness, Denies nasal congestion, Denies tinnitus and Denies sore throat Card Denies chest pain, Denies syncope, Denies rapid heart rate and Denies dyspnea Resp Denies cough and Denies dyspnea GI Denies change in stool character, Reports constipation, Denies diarrhea, Denies nausea and Denies vomiting Denies urinary frequency, Denies difficulty voiding and Denies dysuria Neuro Reports Normal hearing present, Denies confusion, Denies dizziness, Denies syncope and Denies weakness Psych Denies confusion Physical exam (Primary Care) Vital Signs: Last Vital Signs Pulse 85 10/18/23 12:27 BP 104/62 10/18/23 12:27 Pulse Ox 98 10/18/23 12:27 Oxygen Delivery Method Room Air 10/18/23 12:27 BMI result Body Mass Index 17.6 Tobacco/Smoking Status: Tobacco use Status Tobacco use date assessed 05/16/23 10/18/23 12:34 Patient Tobacco Use Status Former Tobacco user 10/18/23 12:34 Tobacco use type Cigarette 10/18/23 12:34 e-Cigarette/Vaping Use Never Used 10/18/23 12:34 PHQ-9: PHQ-9 Score PHQ-9: Total score 0 10/18/23 12:48 Depression Screening Interpretation: Negative Thrive Assessment: Date of Thrive Assessment Date Thrive assessed 07/20/23 10/18/23 12:34 Const General: No confusion Orientation/consciousness: No confusion HENMT Head: Yes normocephalic Ears: external ears normal and TM's normal bilaterally Face and sinus: Yes normal facial exam Mouth: moist mucous membranes Throat: Yes tonsils normal Eyes Conjunctivae: conjunctivae normal Pupils: Equal, round and reactive pupils present and Pupil accommodation reflex normal Direct Ophthalmoscopy: normal light reflex Neck Neck: No lymphadenopathy Thyroid: Thyroid normal Chest Chest palpation & inspection: normal inspection of the chest Resp Effort & Inspection: normal respiratory effort and no audible wheezes Auscultation: clear to auscultation bilaterally, no crackles, no wheezes and lung sounds not diminished Cardio Rate: regular rate Rhythm: regular rhythm Peripheral pulses: radial pulses present and dorsalis pedis present GI Other: guaiac negative Palpation (GI): no masses Auscultation: normal bowel sounds and normoactive bowel sounds Skin General skin exam: no rashes or lesions noted Rashes: no rashes Neuro General: No confusion Cranial nerves: Yes Equal, round and reactive pupils present and Yes Normal hearing present Cognition (Neuro): normal cognition Gait exam (Neuro): Normal gait present Motor exam (neuro): 5/5 motor strength present throughout Deep tendon reflexes (DTR's): Right brachioradialis reflex intensity grade: 2+, Left brachioradialis reflex intensity grade: 2+, Right patellar reflex intensity grade: 2+ and Left patellar reflex intensity grade: 2+ Extrem General: No edema Immunizations tetanus-diphtheria toxoids-Td 2 Lf unit-2 Lf unit/0.5 mL IM suspension Performing Provider: Vania Matson MD Performing Location: [facility] Administered by: MURTAZA Ortiz on 10/18/23 13:20 Dose Route Admin Location Dispensed Lot Number Expiration Date NDC Director Of Regional Sales 0.5 mL IM Left Deltoid 0.5 mL [id number] 05/21/24 [address]-1 [employer] VIS Given Date VIS Provided VIS Publication Date 10/18/23 Single Vaccine 20 Eligibility Eligibility Date Funding Source Not VFC Eligible 10/18/23 State funds Assessment and Plan Assessment & Plan (1) Annual physical exam: Code(s): Z00.00 - Encounter for general adult medical examination without abnormal findings Plan: Patient is advised to eat healthy, keep well hydrated, keep active and have adequate sleep. (2) COPD (chronic obstructive pulmonary disease): Code(s): J44.9 - Chronic obstructive pulmonary disease, unspecified Qualifiers: COPD type: emphysema Emphysema type: unspecified Qualified Code(s): J43.9 - Emphysema, unspecified Plan: Continue with albuterol as needed also on Anoro once a day. (3) Hypercholesterolemia: Code(s): E78.00 - Pure hypercholesterolemia, unspecified Plan: Avoid fried foods, chicken skin, eggs, butter margarine, pastries and meat. Be it pork or beef they have a lot of cholesterol on simvastatin 5 mg once a day with atherosclerotic heart disease advised lowering down LDL to less than 70. (4) Pulmonary nodules: Comment: June 2022, June 2023 Code(s): R91.8 - Other nonspecific abnormal finding of lung field Plan: Continuing to monitor and stable (5) Degenerative disc disease, cervical: Comment: 2021 Code(s): M50.30 - Other cervical disc degeneration, unspecified cervical region Plan: Keep active on anti-inflammatory for pain (6) GERD (gastroesophageal reflux disease): Comment: She will give trial to pantoprazole daily and hope she has better coverage Reflux precautions reviewed Code(s): K21.9 - Gastro-esophageal reflux disease without esophagitis Qualifiers: Esophagitis presence: without esophagitis Qualified Code(s): K21.9 - Gastro-esophageal reflux disease without esophagitis Plan: Avoid the foods that causes that usually spicy foods, tomato products, juices, coffee, soda and foods that your sensitive to. After eating do not lie down, allow 3-4 hours before in lie down. And keep the head of bed above 30 degrees to avoid the acid from going up. (7) Infiltrating ductal carcinoma: Comment: 2003 right breast lumpectomy and radiation and tamoxifen Code(s): C50.919 - Malignant neoplasm of unspecified site of unspecified female breast Plan: Up-to-date with mammogram (8) Atherosclerotic cardiovascular disease: Code(s): I25.10 - Atherosclerotic heart disease of [place] coronary artery without angina pectoris Plan: Control the cholesterol, weight, blood pressure, (9) Migraine: Code(s): G43.909 - Migraine, unspecified, not intractable, without status migrainosus Orders: Orders Lipid Panel 3 Months E78.00 - Pure hypercholesterolemia, unspecified Free T4 (Free Thyroxine) 3 Months I25.10 - Atherosclerotic heart disease of [place] coronary artery without angina pectoris Thyroid Stimulating Hormone 3 Months I25.10 - Atherosclerotic heart disease of [place] coronary artery without angina pectoris UA CC w/rflx Micro + Cult 3 Months I25.10 - Atherosclerotic heart disease of [place] coronary artery without angina pectoris, R30.0 - Dysuria Comprehensive Met. Panel 3 Months E78.00 - Pure hypercholesterolemia, unspecified Complete Blood Count Auto Diff 3 Months I25.10 - Atherosclerotic heart disease of [place] coronary artery without angina pectoris Medications: Changed From simvastatin 5 mg PO BEDTIME 30 tabs 3RF E78.00 - Pure hypercholesterolemia, unspecified To simvastatin 10 mg PO BEDTIME 90 tabs 3RF E78.00 - Pure hypercholesterolemia, unspecified From topiramate (Topamax) Dr. Will 300 mg PO BEDTIME G43.909 - Migraine, unspecified, not intractable, without status migrainosus To topiramate (Topamax) Dr. Will 300 mg (3 x 100 mg) PO BEDTIME 90 days 270 tabs 1RF G43.909 - Migraine, unspecified, not intractable, without status migrainosus Coding Level of Care Code Est Pt Prev Care >65y(14569) Diagnoses Annual physical exam Z00.00 Pulmonary emphysema, unspecified emphysema type J43.9 COPD type: emphysema Emphysema type: unspecified Hypercholesterolemia E78.00 Pulmonary nodules R91.8 Degenerative disc disease, cervical M50.30 Gastroesophageal reflux disease without esophagitis K21.9 Esophagitis presence: without esophagitis Infiltrating ductal carcinoma C50.919 Atherosclerotic cardiovascular disease I25.10 Migraine G43.909
[2023-10-18 12:27] VITALS: BP 104/62; PULSE 85; O2SAT 98; BMI 17.6
== END 2023-10-18 13:31 | disposition home or self-care (01) ==
PROVIDERS: PCP Internal Medicine; Visit Provider Internal Medicine
DX: Z00.00 Encounter for general adult medical examination without abnormal findings (principal); J43.9 Emphysema, unspecified; C50.919 Malignant neoplasm of unspecified site of unspecified female breast; Z23 Encounter for immunization; E78.00 Pure hypercholesterolemia, unspecified; R91.8 Other nonspecific abnormal finding of lung field; M50.30 Other cervical disc degeneration, unspecified cervical region; K21.9 Gastro-esophageal reflux disease without esophagitis; I25.10 Atherosclerotic heart disease of native coronary artery without angina pectoris; G43.909 Migraine, unspecified, not intractable, without status migrainosus
CPT/HCPCS: 90471; 90714; 99397

== ENCOUNTER 2024-01-13 11:01 | Outpatient (AMB) | payer MEDICARE, SELFPAY ==
--- NOTE | 2024-01-13 11:17 | MHC.OFFVIS ---
Vital Signs 01/13/24 11:31 Height 5 ft 6.5 in Weight 114 lb 6 oz BMI 18.2 BP 136/65 Blood Pressure Location Lt brachial Position Sitting Pulse 74 Intake Visit Reasons: lesion/spot on innet thigh slight bleeding Intake Note: Patient is seen in office for follow up visit, evaluation lesion on inner thigh is slight bleeding. 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 This was initially about the size of a nickel and became red with some bloody discharge and skin irritation due to her clothing. The lesion subsequently opened producing a large amount of discharge but is now decreased in size significantly. She denies any pain or current drainage. She denies fever, chills, nausea or vomiting. [facility] Medical History Migraine Dysphagia History of colon polyps Blind left eye Thyroid nodule Carotid stenosis, right Left renal stone GERD (gastroesophageal reflux disease) Degenerative disc disease, cervical Hypercholesterolemia Pericardial effusion Breast cancer Surgical History History of esophagogastroduodenoscopy (EGD) History of shoulder surgery History of tonsillectomy History of vaginal hysterectomy History of lobectomy of thyroid H/O lymph node biopsy H/O lumpectomy Family History Mother Dementia Father Lung cancer metastatic to bone Maternal Uncle FH: prostate cancer Paternal Uncle FH: prostate cancer Maternal Uncle Myocardial infarct Brother Skin cancer Primary cutaneous large T-cell lymphoma Social History Household Members: Spouse Housing: House Do you presently have visiting nurse or other home services: No Alcohol intake: never Patient Tobacco Use Status: Former Tobacco user Tobacco use type: Cigarette Years Smoked: quit 30 years old e-Cigarette/Vaping Use: Never Used Second Hand Smoke Exposure: No Advance Directives Date on File: 01/28/20 Current occupational status: retired 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 Cognitive needs: No Hearing needs: No Vision needs: Yes Review of Systems Const All systems reviewed & are unremarkable except as noted in HPI and below Physical Exam Vital Signs: Last Vital Signs Pulse 74 01/13/24 11:31 BP 136/65 01/13/24 11:31 BMI result Body Mass Index 18.2 Const General: comfortable and no acute distress Nutritional Appearance: well nourished Orientation/consciousness: patient oriented x3 Resp Effort & Inspection: normal respiratory effort, no audible wheezes, no cough and no respiratory distress Skin Other: Left upper inner thigh with a 2 mm red skin lesion possibly resolving epidermal inclusion cyst with no underlying fluctuance, skin ulceration or tenderness. Full body images: 1. 2 mm skin lesion as noted above. Neuro General: patient oriented x3 Assessment & Plan Assessment & Plan (1) Epidermal inclusion cyst: Code(s): L72.0 - Epidermal cyst Category: Medical Plan 68-year-old female presenting for evaluation of a skin lesion located in the left upper inner thigh. The lesion appears to be resolving after recently opening and draining. Findings are suggestive of an epidermal inclusion cyst. No surgical intervention is required at this time. Patient is welcome to call for any changes. She will follow-up for her regularly scheduled breast examination. Coding Level of Care Code Est Pt Level 3 (50455) Diagnoses Epidermal inclusion cyst L72.0
[2024-01-13 11:31] VITALS: BP 136/65; PULSE 74; BMI 18.2
== END 2024-01-13 11:36 | disposition home or self-care (01) ==
PROVIDERS: PCP Internal Medicine; Visit Provider Surgery
DX: L72.0 Epidermal cyst (principal)
CPT/HCPCS: 99213

== ENCOUNTER → 2024-01-13 11:01 | Outpatient (BNVA) | payer MEDICARE, SELFPAY | PROVIDERS: PCP Internal Medicine; Visit Provider Surgery | DX: L72.0 Epidermal cyst (principal); Z85.3 Personal history of malignant neoplasm of breast; Z23 Encounter for immunization | CPT/HCPCS: 90471; 90656; 99212 ==

== ENCOUNTER 2024-01-13 11:46 | Outpatient (AMB) | payer MEDICARE, SELFPAY ==
--- NOTE | 2024-01-13 12:00 | AM.OFFVISNUR ---
Intake Visit Reasons: Flu Vaccine Allergies oxycodone [Percocet] Allergy (Unknown, Verified 01/13/24 11:28) Unknown rosuvastatin Adverse Reaction (Verified 01/13/24 11:28) myalgia Office Procedures Flu Questionnaire Does the patient have a severe egg allergy?: No Does the patient have severe life threatening allergies?: No Does the patient have a fever or illness today?: No Has the patient ever had Guillain-[place] Syndrome?: No Has the patient ever had any past reaction to a flu shot?: No Assessment & Plan Assessment & Plan Orders: Orders Influenza [id number] Immunization Today Z23 - Encounter for immunization Medications: New Fluarix Triv [id number] (PF) (flu vacc [id number] 6mos up(PF)) 0.5 mL IM ONCE 0.5 mL 0RF NS Z23 - Encounter for immunization
== END 2024-01-13 12:01 | disposition home or self-care (01) ==
PROVIDERS: PCP Internal Medicine; Visit Provider Internal Medicine
DX: Z23 Encounter for immunization (principal)

== ENCOUNTER 2024-01-26 10:41 | Outpatient (REF) | payer MEDICARE, SELFPAY ==
[2024-01-26 10:55] LABS: MANUAL DIFF FLAG NO
[2024-01-26 11:25] LABS: Basophils Percent Auto 0.7 % (0-2); Eosinophils Absolute Auto 0.1 X10*3/uL (0.0-0.4); Eosinophils Percent Auto 2.5 % (0-4); Hematocrit 38.6 % (37.0-47.0); Hemoglobin 12.8 g/dl (12.0-16.0); Imm Gran Abs Auto 0.01 X10*3/uL (0.00-0.03); Imm Gran Pct Auto 0.2 % (0.0-0.4); Lymphocytes Absolute Auto 1.2 X10*3/uL (1.2-4.9); Lymphocytes Percent Auto 30.2 % (20-40); Mean Corpuscular HGB Conc 33.2 g/dl (31.0-35.0); Mean Corpuscular Hemoglobin 30.8 pg (27.0-33.0); Mean Platelet Volume 8.9 fL (9.4-12.3); Monocytes Absolute Auto 0.4 X10*3/uL (0.1-1.2); Monocytes Percent Auto 9.6 % (2-11); Neutrophils Absolute Auto 2.3 x10*3/uL (2.0-8.3); Neutrophils Percent Auto 56.8 % (45-73); Platelet Count 238 X10*3/uL (160-400); Red Blood Count 4.15 X10*6/uL (4.20-5.50); Red Cell Distribution Width 12.7 % (11.0-16.0); White Blood Count 4.1 X10*3/uL (4.8-10.8)
[2024-01-26 11:29] LABS: Appearance Urine Clear; Color Urine Yellow; Glucose Urine UA Negative (Negative); Leukocyte Esterase Urine Negative (Negative); Nitrite Urine Negative (Negative); Urine Blood Negative (Negative); Urine Ketones Negative (Negative); Urine Protein Negative (Neg-Trace)
[2024-01-26 11:59] LABS: Alanine Aminotransferase 12 U/L (0-31); Albumin Level 4.7 g/dL (3.5-5.0); Alkaline Phosphatase 68 U/L (39-117); Anion Gap 9 (12-20); Aspartate Amino Transferase 13 U/L (5-31); Bilirubin Total 0.3 mg/dL (0.0-1.0); Blood Urea Nitrogen 15 mg/dL (9-16); Calcium 9.5 mg/dL (8.4-10.2); Carbon Dioxide 23 mmol/L (22-29); Chloride 113 mmol/L (96-108); Cholesterol 203 mg/dL (<200); Estimated Glomerular Filt Rate > 60; Glucose Random 96 mg/dL (60-115); HDL Cholesterol 65 mg/dL (>40); LDL Cholesterol Calculated 120 mg/dL (<100); Potassium 4.7 mmol/L (3.3-5.1); Sodium 140 mmol/L (135-145); Triglycerides 90 mg/dL (<150)
[2024-01-26 12:16] LABS: Free T4 (Free Thyroxine) 0.76 ng/dL (0.71-1.85); Thyroid Stimulating Hormone 2.15 uIU/mL (0.32-4.0)
== END 2024-01-26 10:42 | disposition home or self-care (01) ==
LOC: HO.LAB 10:41
PROVIDERS: PCP Internal Medicine; Visit Provider Internal Medicine
DX: I25.10 Atherosclerotic heart disease of native coronary artery without angina pectoris (principal); E78.00 Pure hypercholesterolemia, unspecified; R30.0 Dysuria
CPT/HCPCS: 36415; 80053; 80061; 81003; 84439; 84443; 85025

== ENCOUNTER 2024-02-14 13:21 | Outpatient (AMB) | payer MEDICARE, SELFPAY ==
[2024-02-14 13:24] VITALS: BP 118/62; PULSE 102; O2SAT 100; BMI 18.1
--- NOTE | 2024-02-14 13:24 | MHC.OFFVIS ---
Vital Signs 02/14/24 13:24 Height 5 ft 6.5 in Weight 114 lb BMI 18.1 BP 118/62 Blood Pressure Location Lt brachial Position Sitting Pulse 102 H Pulse Source Doppler Pulse Oximetry (%) 100 Oxygen Delivery Method Room Air Intake Visit Reasons: copd Allergies oxycodone [Percocet] Allergy (Unknown, Verified 02/14/24 13:31) Unknown rosuvastatin Adverse Reaction (Verified 02/14/24 13:31) myalgia HPI HPI copd: Details: 68-year-old lady, former 25 pack-year smoker, quit over 15 years prior with underlying history of prior breast cancer in her 40 status post resection, chemotherapy, and XRT followed for pulmonary nodules noted on screening CT chest and COPD.? She continues to use Anoro and albuterol MDI with slowly worsening symptom control. She denies acute exacerbations. [facility] Medical History Migraine Dysphagia History of colon polyps Blind left eye Thyroid nodule Carotid stenosis, right Left renal stone GERD (gastroesophageal reflux disease) Degenerative disc disease, cervical Hypercholesterolemia Pericardial effusion Breast cancer Surgical History History of esophagogastroduodenoscopy (EGD) History of shoulder surgery History of tonsillectomy History of vaginal hysterectomy History of lobectomy of thyroid H/O lymph node biopsy H/O lumpectomy Family History Mother Dementia Father Lung cancer metastatic to bone Maternal Uncle FH: prostate cancer Paternal Uncle FH: prostate cancer Maternal Uncle Myocardial infarct Brother Skin cancer Primary cutaneous large T-cell lymphoma Social History Household Members: Spouse Housing: House Do you presently have visiting nurse or other home services: No Alcohol intake: never Patient Tobacco Use Status: Former Tobacco user Tobacco use type: Cigarette Years Smoked: quit 30 years old e-Cigarette/Vaping Use: Never Used Second Hand Smoke Exposure: No Advance Directives Date on File: 01/28/20 Current occupational status: retired 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 Cognitive needs: No Hearing needs: No Vision needs: Yes Review of Systems Const Denies daytime sleepiness, Denies excessive sweating, Denies fatigue, Denies fever(s), Denies lethargy, Denies malaise, Denies night sweats, Denies snoring and Denies weight loss Eyes Denies blurry vision and Denies itchy eyes ENT Denies nasal congestion, Denies post nasal drip, Denies sinus pain, Denies sinus pressure and Denies other ( Thrush) Card Denies chest pain, Denies pedal edema, Denies dyspnea, Reports dyspnea on exertion, Denies orthopnea and Denies paroxysmal nocturnal dyspnea Resp Denies cough, Denies hemoptysis, Denies excessive phlegm production, Denies dyspnea, Reports dyspnea on exertion, Denies snoring and Denies wheezing GI Denies abdominal pain and Denies heartburn Musc Denies myalgias, Denies arthralgias and Denies joint swelling Skin/Breast Denies rash Neuro Denies memory loss and Denies seizure-like activity Psych Denies abnormal sleep pattern, Denies anxiety and Denies memory loss Endo Denies excessive sweating, Denies fatigue and Denies heat intolerance Enmanuel/Lymph Denies easy bruising Aller/Immun Denies itchy eyes, Denies seasonal rhinorrhea and Denies wheezing Physical Exam Vital Signs: Last Vital Signs Pulse 102 H 02/14/24 13:24 BP 118/62 02/14/24 13:24 Pulse Ox 100 02/14/24 13:24 Oxygen Delivery Method Room Air 02/14/24 13:24 BMI result Body Mass Index 18.1 Const General: no acute distress and alert Nutritional Appearance: not obese Orientation/consciousness: Other orientation findings ( oriented) HEENT Head: Yes atraumatic Eyes General: appearance normal, both eyes and all related structures Sclerae: sclerae normal EOM: EOMs intact bilaterally Neck Neck: Yes supple Lymphatic: no lymphadenopathy noted Resp Effort & Inspection: normal respiratory effort and no use of accessory muscles Auscultation: clear to auscultation bilaterally Cardio Rate: regular rate Rhythm: regular rhythm Heart sounds: no gallops, no murmurs and no rubs Skin General skin exam: other ( warm) Extrem General: No clubbing, No cyanosis and No edema Assessment & Plan Assessment & Plan (1) COPD (chronic obstructive pulmonary disease): Code(s): J44.9 - Chronic obstructive pulmonary disease, unspecified Category: Medical Qualifiers: COPD type: emphysema Emphysema type: unspecified Qualified Code(s): J43.9 - Emphysema, unspecified Plan: Slowly worsening control on Anoro and albuterol MDI. Will add theophylline. (2) Pulmonary nodules: Code(s): R91.8 - Other nonspecific abnormal finding of lung field Category: Medical Plan: Will repeat CT chest for surveillance. Orders: Orders CT chest wo IV con Today R91.8 - Other nonspecific abnormal finding of lung field Medications: New theophylline ER 300 mg PO DAILY 30 caps 6RF Coding Level of Care Code Est Pt Level 4 (50390) Diagnoses Pulmonary emphysema, unspecified emphysema type J43.9 COPD type: emphysema Emphysema type: unspecified Pulmonary nodules R91.8
== END 2024-02-14 13:45 | disposition home or self-care (01) ==
LOC: HO.HPS 13:22
PROVIDERS: PCP Internal Medicine; Visit Provider Internal Medicine Pulmonary Disease
DX: J43.9 Emphysema, unspecified (principal); R91.8 Other nonspecific abnormal finding of lung field
CPT/HCPCS: 99214

== ENCOUNTER → 2024-02-14 13:21 | Outpatient (BNVA) | payer MEDICARE, SELFPAY | PROVIDERS: PCP Internal Medicine; Visit Provider Internal Medicine Pulmonary Disease | DX: E78.00 Pure hypercholesterolemia, unspecified (principal); I25.810 Atherosclerosis of coronary artery bypass graft(s) without angina pectoris; I10 Essential (primary) hypertension; R29.898 Other symptoms and signs involving the musculoskeletal system; Z85.3 Personal history of malignant neoplasm of breast; J43.9 Emphysema, unspecified; R91.8 Other nonspecific abnormal finding of lung field | CPT/HCPCS: 99212 ==

== ENCOUNTER 2024-02-14 14:32 | Outpatient (AMB) | payer MEDICARE, SELFPAY ==
[2024-02-14 15:00] VITALS: BP 114/62; PULSE 77; O2SAT 98; BMI 18.1
--- NOTE | 2024-02-14 15:00 | A.OFFPC_ITS ---
Vital Signs 02/14/24 15:00 Height 5 ft 6.5 in Weight 114 lb BMI 18.1 BP 114/62 Blood Pressure Location Lt brachial Position Sitting Pulse 77 Pulse Source Pulse Oximeter Pulse Oximetry (%) 98 Oxygen Delivery Method Room Air Intake Visit Reasons: Cholesterol Allergies oxycodone [Percocet] Allergy (Unknown, Verified 02/14/24 15:01) Unknown rosuvastatin Adverse Reaction (Verified 02/14/24 15:01) myalgia Tobacco use date assessed: 05/16/23 Fall risk assessment: No Falls in past year Last assessed Fall Risk: 02/14/24 Dental Screening Dental Screen Date: 07/20/23 HPI Cholesterol HPI Details 68-year-old female with a history of [employer] D hypercholesterolemia cervical degenerative disc disease GERD breast cancer, coronary artery disease last seen in October 2023. Patient's mammogram last done 2023 colonoscopy is up-to-date 04/15/2019 years. Patient recently followed up with Pulmonary for the pulmonary nodule CT scan was requested. As for COPD theophylline prescription sent in. Received also note from the surgeon having an epidermal inclusion cyst on the left upper inner thigh. . complains of weakness,getting out of car. complains of feels dizzy on looking up. [facility] Medical History Migraine Dysphagia History of colon polyps Blind left eye Thyroid nodule Carotid stenosis, right Left renal stone GERD (gastroesophageal reflux disease) Degenerative disc disease, cervical Hypercholesterolemia Pericardial effusion Breast cancer Surgical History History of esophagogastroduodenoscopy (EGD) History of shoulder surgery History of tonsillectomy History of vaginal hysterectomy History of lobectomy of thyroid H/O lymph node biopsy H/O lumpectomy Family History Mother Dementia Father Lung cancer metastatic to bone Maternal Uncle FH: prostate cancer Paternal Uncle FH: prostate cancer Maternal Uncle Myocardial infarct Brother Skin cancer Primary cutaneous large T-cell lymphoma Social History Household Members: Spouse Housing: House Do you presently have visiting nurse or other home services: No Alcohol intake: never Patient Tobacco Use Status: Former Tobacco user Tobacco use type: Cigarette Years Smoked: quit 30 years old e-Cigarette/Vaping Use: Never Used Second Hand Smoke Exposure: No Advance Directives Date on File: 01/28/20 Current occupational status: retired 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 1. Little interest or pleasure in doing things: not at all 2. Feeling down, depressed, or hopeless: not at all 3. Trouble falling or staying asleep, or sleeping too much: not at all 4. Feeling tired or having little energy: not at all 5. Poor appetite or overeating: not at all 6. Feeling bad about yourself - or that you are a failure or have let yourself or your family down: not at all 7. Trouble concentrating on things, such as reading the newspaper or watching television: not at all 8. Moving or speaking so slowly that other people could have noticed. Or the opposite - being so fidgety or restless that you have been moving around a lot more than usual: not at all 9. Thoughts that you would be better off or of hurting yourself in some way: not at all Total score: 0 Depression Screening Interpretation: Negative Depression Screening Done: Yes Source: Developed by Drs. Keith Mast, Deanna Rodriguez, Tk Reddy and colleagues, with an educational kelle from [employer]. Thrive Questionnaire Date Thrive assessed: 07/20/23 AUDIT C Alcohol Use Questionnaire (AUDIT-C) 1. How often do you have a drink containing alcohol?: 2-4 times a month 2. How many drinks containing alcohol do you have on a typical day when you are drinking?: 1 or 2 3. How often do you have six or more drinks on one occasion?: Never Total Score: 2 SANGITA-7 AMB Questionnaire SANGITA-7 Date SANGITA - 7 assessed: 07/20/23 Source: Developed by Drs. Keith Mast, Tk Martínez and colleagues, with an educational kelle from [employer]. Physical exam (Primary Care) Vital Signs: Last Vital Signs Pulse 77 02/14/24 15:00 BP 114/62 02/14/24 15:00 Pulse Ox 98 02/14/24 15:00 Oxygen Delivery Method Room Air 02/14/24 15:00 BMI result Body Mass Index 18.1 Tobacco/Smoking Status: Tobacco use Status Tobacco use date assessed 05/16/23 02/14/24 15:07 Patient Tobacco Use Status Former Tobacco user 02/14/24 15:07 Tobacco use type Cigarette 02/14/24 15:07 e-Cigarette/Vaping Use Never Used 02/14/24 15:07 PHQ-9: PHQ-9 Score PHQ-9: Total score 0 02/14/24 15:13 Depression Screening Interpretation: Negative Thrive Assessment: Date of Thrive Assessment Date Thrive assessed 07/20/23 02/14/24 15:07 Const General: alert; No acute distress Eyes Conjunctivae: conjunctivae normal Resp Auscultation: clear to auscultation bilaterally Cardio Rate: regular rate Rhythm: regular rhythm GI Inspection: Yes normal to inspection Extrem General: Yes normal to inspection and No edema Coding Level of Care Code Est Pt Level 4 (64922) Diagnoses Atherosclerotic cardiovascular disease I25.10 Infiltrating ductal carcinoma C50.919 Hypercholesterolemia E78.00 Pulmonary emphysema, unspecified emphysema type J43.9 COPD type: emphysema Emphysema type: unspecified Leg weakness, bilateral R29.898 Assessment & Plan Assessment & Plan (1) Atherosclerotic cardiovascular disease: Code(s): I25.10 - Atherosclerotic heart disease of [place] coronary artery without angina pectoris Category: Medical Plan: Control the cholesterol, weight, blood pressure, (2) Infiltrating ductal carcinoma: Comment: 2003 right breast lumpectomy and radiation and tamoxifen Code(s): C50.919 - Malignant neoplasm of unspecified site of unspecified female breast Category: Medical Plan: Up-to-date with mammogram and continue to follow up with the surgeon. (3) Hypercholesterolemia: Code(s): E78.00 - Pure hypercholesterolemia, unspecified Category: Medical Plan: Avoid fried foods, chicken skin, eggs, butter margarine, pastries and meat. Be it pork or beef they have a lot of cholesterol LDL goal of less than 70 and triglyceride of less than 150 patient on simvastatin 10 mg at bedtime. (4) COPD (chronic obstructive pulmonary disease): Code(s): J44.9 - Chronic obstructive pulmonary disease, unspecified Category: Medical Qualifiers: COPD type: emphysema Emphysema type: unspecified Qualified Code(s): J43.9 - Emphysema, unspecified Plan: Continue with albuterol inhaler as needed and theophylline 300 mg once a day. (5) Leg weakness, bilateral: Code(s): R29.898 - Other symptoms and signs involving the musculoskeletal system Category: Medical Plan: Will request for x-rays for the knee Orders: Orders XR knee LT 2V Today R29.898 - Other symptoms and signs involving the musculoskeletal system XR knee RT 2V Today R29.898 - Other symptoms and signs involving the musculoskeletal system Medications: Changed From simvastatin 10 mg PO BEDTIME 90 tabs 3RF E78.00 - Pure hypercholesterolemia, unspecified To simvastatin 20 mg PO BEDTIME 30 tabs 3RF E78.00 - Pure hypercholesterolemia, unspecified
== END 2024-02-14 15:45 | disposition home or self-care (01) ==
LOC: HO.HMCH 14:33
PROVIDERS: PCP Internal Medicine; Visit Provider Internal Medicine
DX: I25.10 Atherosclerotic heart disease of native coronary artery without angina pectoris (principal); C50.919 Malignant neoplasm of unspecified site of unspecified female breast; E78.00 Pure hypercholesterolemia, unspecified; J43.9 Emphysema, unspecified; R29.898 Other symptoms and signs involving the musculoskeletal system

== ENCOUNTER 2024-02-28 10:47 | Outpatient (AMB) | payer MEDICARE, SELFPAY ==
--- NOTE | 2024-02-28 10:56 | MHC.OFFVIS ---
Vital Signs 02/28/24 11:04 Height 5 ft 6.5 in Weight 113 lb BMI 18.0 BP 144/62 H Blood Pressure Location Lt brachial Position Sitting Pulse 75 Intake Visit Reasons: Yearly Breast Exam Intake Note: Patient is seen in office for yearly breast exam. Pt c/o: denies any concerns at the time of visit mm: 12/14/23 (Jennifer) Equipment Detailer Required: No Group Sales Coordinator: Group Sales Coordinator Present Accompanied by: Self / Same As Patient Allergies oxycodone [Percocet] Allergy (Unknown, Verified 02/28/24 10:57) Unknown rosuvastatin Adverse Reaction (Verified 02/28/24 10:57) myalgia Medication List - Last Reconciled 02/28/24 by Kilo Rangel MD acetaminophen (Tylenol) 325 mg PO QID PRN albuterol sulfate 90 mcg/actuation (ProAir HFA) 2 puffs inhalation Q6H PRN cyanocobalamin (vitamin B-12) 1,000 mcg PO DAILY cyclobenzaprine 10 mg PO TID docusate sodium (Colace) 200 mg (2 x 100 mg) PO BEDTIME hydrocortisone 2.5% (Proctozone-HC) 1 appl DC BID PRN meloxicam 15 mg PO DAILY methylcellulose (laxative) (Citrucel) 500 mg PO TID omeprazole 40 mg PO BID ondansetron HCl 4 mg PO DAILY PRN simvastatin 20 mg PO BEDTIME sumatriptan succinate 50 mg PO .QD PRN 90 days theophylline ER 300 mg PO DAILY topiramate (Topamax) 400 mg (4 x 100 mg) PO BEDTIME 90 days triamcinolone acetonide 0.5% 1 appl topical BID 14 days umeclidinium-vilanterol 62.5-25 mcg/actuation (Anoro Ellipta) 1 inh inhalation DAILY HPI Comments Details: 68-year-old female patient, former patient of Dr. Sutton presenting for a breast cancer follow-up examination. She was diagnosed with infiltrating ductal carcinoma, 1.2 cm, grade 2, ER DC positive, HER2 Marit[place] negative. She underwent a right breast lumpectomy with sentinel node biopsy in 2003. Two sentinel nodes were removed 1 of which was positive with a 0.25 mm micrometastasis (T1c N1miM0: Stage II). She subsequently underwent radiation therapy followed by dose dense AC and 5 years of tamoxifen. Her most recent mammogram in 12/14/2023 at [facility] revealed no mammographic evidence of malignancy (BI-RADS 2). Patient feels well and denies any ongoing breast symptoms. She denies any palpable masses. [facility] Medical History Migraine Dysphagia History of colon polyps Blind left eye Thyroid nodule Carotid stenosis, right Left renal stone GERD (gastroesophageal reflux disease) Degenerative disc disease, cervical Hypercholesterolemia Pericardial effusion Breast cancer Surgical History History of esophagogastroduodenoscopy (EGD) History of shoulder surgery History of tonsillectomy History of vaginal hysterectomy History of lobectomy of thyroid H/O lymph node biopsy H/O lumpectomy Family History Mother Dementia Father Lung cancer metastatic to bone Maternal Uncle FH: prostate cancer Paternal Uncle FH: prostate cancer Maternal Uncle Myocardial infarct Brother Skin cancer Primary cutaneous large T-cell lymphoma Social History Household Members: Spouse Housing: House Do you presently have visiting nurse or other home services: No Alcohol intake: never Patient Tobacco Use Status: Former Tobacco user Tobacco use type: Cigarette Years Smoked: quit 30 years old e-Cigarette/Vaping Use: Never Used Second Hand Smoke Exposure: No Advance Directives Date on File: 01/28/20 Current occupational status: retired 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 Cognitive needs: No Hearing needs: No Vision needs: Yes Review of Systems Const All systems reviewed & are unremarkable except as noted in HPI and below Physical Exam Vital Signs: Last Vital Signs Pulse 75 02/28/24 11:04 BP 144/62 H 02/28/24 11:04 BMI result Body Mass Index 18.0 Const General: cooperative, no acute distress and well developed Nutritional Appearance: well nourished Orientation/consciousness: patient oriented x3 Limitations: no limitations HEENT Head: Yes normocephalic and Yes atraumatic Ears: hearing grossly normal bilaterally Chest Other: Left breast: No skin change, no nipple retraction, no nipple discharge, no palpable mass, no enlarged lymph nodes. Right breast: No skin change, no nipple retraction, no nipple discharge, no palpable mass, no enlarged lymph nodes Resp Effort & Inspection: normal respiratory effort, no audible wheezes, no cough and no respiratory distress GI Inspection: Yes normal to inspection Skin General skin exam: no rashes or lesions noted Wounds: no wounds Neuro Other: Mobility Assessment: 5 1. 3 meter assessment time (seconds) 2. Gait observations: Normal balance and gait General: patient oriented x3 Extrem General: Yes no clubbing, cyanosis or edema Assessment & Plan Assessment & Plan (1) Infiltrating ductal carcinoma: Comment: 2003 right breast lumpectomy and radiation and tamoxifen Code(s): C50.919 - Malignant neoplasm of unspecified site of unspecified female breast Category: Medical Plan 68-year-old female patient returning for a routine breast examination following a personal history of right breast cancer, status post lumpectomy with needle localization, sentinel node biopsy. She subsequently underwent radiation therapy and dose dense AC followed by tamoxifen for 5 years. She continues to do well and denies any specific breast complaints. Examination today reveals no evidence of recurrence disease in either breast. She should continue monthly self examinations and return in 1 year for a routine breast examination. Follow-up mammogram is recommended in 12/29/2024. She is welcome to call sooner for any concerns. Coding Level of Care Code Est Pt Level 3 (73988) Diagnoses Infiltrating ductal carcinoma C50.919
[2024-02-28 11:04] VITALS: BP 144/62; PULSE 75; BMI 18.0
== END 2024-02-28 11:26 | disposition home or self-care (01) ==
PROVIDERS: PCP Internal Medicine; Visit Provider Surgery
DX: C50.919 Malignant neoplasm of unspecified site of unspecified female breast (principal)
CPT/HCPCS: 99213

== ENCOUNTER 2024-02-28 11:30 | Outpatient (REF) | payer MEDICARE, SELFPAY | END 2024-02-28 11:31 | disposition home or self-care (01) | LOC: HO.XRAY 11:30 | PROVIDERS: PCP Internal Medicine; Visit Provider Internal Medicine | DX: R29.898 Other symptoms and signs involving the musculoskeletal system (principal) | CPT/HCPCS: 73560; 99212 ==

== ENCOUNTER 2024-04-27 07:16 | Outpatient (REF) | payer MEDICARE, SELFPAY ==
--- NOTE | ~2024-04-27 | CT_ITS ---
EXAMINATION: CT CHEST WITHOUT CONTRAST CLINICAL INFORMATION: Nonspecific abnormal finding in the lungs. COMPARISON: CT chest dated June 28, 2023. TECHNIQUE: Multidetector volumetric CT imaging of the chest was done. Axial MIP volume rendering provided. Sagittal and coronal reformatted images were obtained. This CT examination was performed using dose optimization techniques as appropriate, variously including the following: *Automated exposure control *Adjustment of mA and/or kV according to patient size (this includes techniques or standardized protocols for targeted exams where dose is matched to indication/reason for exam; i.e. extremities or head) *Use of iterative reconstruction technique DLP: 77 mGy centimeter. FINDINGS: Bilateral, a few scattered, less than 2 mm calcified pulmonary nodules in the periphery of the lungs more conspicuous on the right side. There is a 3 mm noncalcified pulmonary nodule in the periphery of the right lower lung lobe. Linear and less than 6 mm nodular attenuation in the right middle lung lobe and to a lesser extent lingula with small focal saccular bronchiectasis. Bilateral apical lung scarring. No gross consolidation, pleural effusion or pneumothorax. No lymphadenopathy, mediastinum. Nonspecific prominent, subcentimeter axillary lymph nodes. Calcified plaques in the thoracic aortic arch and the origin of the main branches. No aneurysm, thoracic aorta. Calcified plaques in the coronary arteries. No gross pericardial effusion. The thyroid gland is not enlarged. No gross dominant nodules. No acute fracture or listhesis in the axial skeleton. There is a trabeculated sclerotic marginated lesion at T5 likely intraosseous hemangioma. Probable bony island in the right humeral head. CT/CT chest wo IV con IMPRESSION: Overall stable since prior examination. Consider prior granulomatous disease processes and probable lung scarring, lingula and right middle lobe. No acute airspace disease. Fleischner guidelines were followed. Electronically signed by: Octavio Mariscal MD 04/27/2024 07:54 AM EST
== END 2024-04-27 07:17 | disposition home or self-care (01) ==
LOC: HO.CT 07:16
PROVIDERS: PCP Internal Medicine; Visit Provider Internal Medicine Pulmonary Disease
DX: R91.8 Other nonspecific abnormal finding of lung field (principal)
CPT/HCPCS: 71250

== ENCOUNTER → 2024-04-27 07:18 | Outpatient (BNV) | payer MEDICARE, SELFPAY | PROVIDERS: PCP Internal Medicine; Visit Provider Radiology Diagnostic Radiology | DX: R91.8 Other nonspecific abnormal finding of lung field (principal) | CPT/HCPCS: 71250 ==

== ENCOUNTER 2024-05-21 14:18 | Outpatient (AMB) | payer MEDICARE, SELFPAY ==
[2024-05-21 14:21] VITALS: BP 124/72; PULSE 92; O2SAT 98; BMI 18.3
--- NOTE | 2024-05-21 14:21 | MHC.PC.OV ---
Vital Signs 05/21/24 14:21 Height 5 ft 6.5 in Weight 115 lb BMI 18.3 BP 124/72 Blood Pressure Location Lt brachial Position Sitting Pulse 92 Pulse Source Pulse Oximeter Pulse Oximetry (%) 98 Oxygen Delivery Method Room Air Intake Visit Reasons: weakness LE Rounder Hand Required: No Accompanied by: Self / Same As Patient Allergies oxycodone [Percocet] Allergy (Unknown, Verified 05/21/24 14:27) Unknown rosuvastatin Adverse Reaction (Verified 05/21/24 14:27) myalgia Tobacco use date assessed: 05/21/24 Fall risk assessment: No Falls in past year Last assessed Fall Risk: 05/21/24 Dental Screening Dental Screen Date: 05/21/24 Did you have a dental visit in the last 12 months?: No Did you have a dental problem in the last 6 months where you did not have access to dental care?: No Was dental information given to patient?: Patient declined HPI weakness LE HPI Details The patient is a 68-year-old female presenting with bilateral leg weakness and issues related to hypercholesterolemia. She has a past medical history significant for Chronic Obstructive Pulmonary Disease (COPD), hypercholesterolemia, Gastroesophageal Reflux Disease (GERD), and a breast cancer diagnosis treated in 2003. The patient suffers from atherosclerotic cardiovascular disease and has been experiencing bilateral leg weakness since February. She denies any evident anemia, with normal blood sugar and renal function levels. Cholesterol management remains a concern, and past medication adjustments, particularly an increase in simvastatin dosage to 20 mg, resulted in the adverse effect of making her feel unwell; thus, she continues on a lower simvastatin dose. She reports increased use of albuterol and Onoro inhalers due to shortness of breath on exertion, such as cleaning snow. This is a deviation from her previous usage patterns. Theophylline is currently part of her regimen, and past medication trials included rosuvastatin, which caused myalgia. Recent imaging indicated stable pulmonary findings without recurrent cancer evidence; however, a CT scan noted an incidental finding of trabeculated sclerotic margin lesions at T5, thought to be benign hemangiomas. The axillary lymph nodes were described as prominent but nonspecific, sparking concern due to her breast cancer history. Despite these findings, no urgent pathological developments were noted. [facility] Medical History Migraine Dysphagia History of colon polyps Blind left eye Thyroid nodule Carotid stenosis, right Left renal stone GERD (gastroesophageal reflux disease) Degenerative disc disease, cervical Hypercholesterolemia Pericardial effusion Breast cancer Surgical History History of esophagogastroduodenoscopy (EGD) History of shoulder surgery History of tonsillectomy History of vaginal hysterectomy History of lobectomy of thyroid H/O lymph node biopsy H/O lumpectomy Family History Mother Dementia Father Lung cancer metastatic to bone Maternal Uncle FH: prostate cancer Paternal Uncle FH: prostate cancer Maternal Uncle Myocardial infarct Brother Skin cancer Primary cutaneous large T-cell lymphoma Social History Household Members: Spouse Housing: House Do you presently have visiting nurse or other home services: No Alcohol intake: never Patient Tobacco Use Status: Former Tobacco user Tobacco use type: Cigarette Years Smoked: quit 30 years old e-Cigarette/Vaping Use: Never Used Second Hand Smoke Exposure: No Advance Directives Date on File: 01/28/20 service: No Current occupational status: retired 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 1. Little interest or pleasure in doing things: not at all 2. Feeling down, depressed, or hopeless: not at all 3. Trouble falling or staying asleep, or sleeping too much: not at all 4. Feeling tired or having little energy: not at all 5. Poor appetite or overeating: not at all 6. Feeling bad about yourself - or that you are a failure or have let yourself or your family down: not at all 7. Trouble concentrating on things, such as reading the newspaper or watching television: not at all 8. Moving or speaking so slowly that other people could have noticed. Or the opposite - being so fidgety or restless that you have been moving around a lot more than usual: not at all 9. Thoughts that you would be better off or of hurting yourself in some way: not at all Total score: 0 Depression Screening Interpretation: Negative Depression Screening Done: Yes Source: Developed by Drs. Keith Mast, Deanna Rodriguez, Tk Reddy and colleagues, with an educational kelle from [employer]. Thrive Questionnaire Date Thrive assessed: 05/21/24 I am a: Patient What is your living situation today?: I have a steady place to live Within the past 12 months, did the food you bought not last and you didn't have the money to get more?: Never true Within the past 12 months, did you worry whether your food would run out before you got money to buy more?: Never true Do you have trouble paying for medicines?: No Do you have trouble getting transportation to medical appointments?: No Do you have trouble paying your heating and electricity bill?: No Do you have trouble taking care of your child, family member or friend?: No Do you have trouble with day-to-day activities such as bathing, preparing meals, shopping, managing finances, etc.?: No Are you currently unemployed and looking for a job?: No Are you interested in more education?: No Please select the resources that you would like help with: None Currently or been in a relationship where the following occur: No concerns reported THRIVE Score: 0 AUDIT C Alcohol Use Questionnaire (AUDIT-C) 1. How often do you have a drink containing alcohol?: 2-4 times a month 2. How many drinks containing alcohol do you have on a typical day when you are drinking?: 1 or 2 3. How often do you have six or more drinks on one occasion?: Never Total Score: 2 SANGITA-7 AMB Questionnaire SANGITA-7 Date SANGITA - 7 assessed: 05/21/24 Feeling nervous, anxious, or on edge: 0 = Not at all Not being able to stop or control worryin = Not at all Worrying too much about different things: 0 = Not at all Trouble relaxin = Not at all Being so restless that it is hard to sit still: 0 = Not at all Becoming easily annoyed or irritable: 0 = Not at all Feeling afraid as if something awful might happen: 0 = Not at all Total SANGITA-7 score (0-4 normal; 5-9 mild; 10-14 moderate; 15-21 severe): 0 Source: Developed by Deanna Brady. Michael, Tk Reddy and colleagues, with an educational kelle from [employer]. Physical exam (Primary Care) Vital Signs: Last Vital Signs Pulse 92 05/21/24 14:21 BP 124/72 05/21/24 14:21 Pulse Ox 98 05/21/24 14:21 Oxygen Delivery Method Room Air 05/21/24 14:21 BMI result Body Mass Index 18.3 Tobacco/Smoking Status: Tobacco use Status Tobacco use date assessed 05/21/24 05/21/24 14:29 Patient Tobacco Use Status Former Tobacco user 05/21/24 14:24 Tobacco use type Cigarette 05/21/24 14:24 e-Cigarette/Vaping Use Never Used 05/21/24 14:24 PHQ-9: PHQ-9 Score PHQ-9: Total score 0 05/21/24 14:36 Depression Screening Interpretation: Negative Thrive Assessment: Date of Thrive Assessment Date Thrive assessed 05/21/24 05/21/24 14:29 Currently or been in a relationship where the following occur: No concerns reported Const General: alert; No acute distress Eyes Conjunctivae: conjunctivae normal Resp Auscultation: clear to auscultation bilaterally Cardio Rate: regular rate Rhythm: regular rhythm GI Inspection: Yes normal to inspection Extrem General: Yes normal to inspection and No edema Coding Level of Care Code Est Pt Level 4 (59112) Diagnoses Gastric ulcer K25.9 Hypercholesterolemia E78.00 Gastroesophageal reflux disease without esophagitis K21.9 Esophagitis presence: without esophagitis Pulmonary emphysema, unspecified emphysema type J43.9 COPD type: emphysema Emphysema type: unspecified Infiltrating ductal carcinoma C50.919 Assessment & Plan Assessment & Plan (1) Gastric ulcer: Comment: 11/2020 EGD she had Increase omeprazole 40 mg to b.i.d.,x 3 months- continue to avoid NSAIDs- Repeat EGD ? recurring ulcer Code(s): K25.9 - Gastric ulcer, unspecified as acute or chronic, without hemorrhage or perforation Category: Medical Plan: Continue with GERD medications omeprazole 40 mg twice a day (2) Hypercholesterolemia: Code(s): E78.00 - Pure hypercholesterolemia, unspecified Category: Medical Plan: Avoid fried foods, chicken skin, eggs, butter margarine, pastries and meat. Be it pork or beef they have a lot of cholesterol on simvastatin 20 mg at bedtime (3) GERD (gastroesophageal reflux disease): Comment: She will give trial to pantoprazole daily and hope she has better coverage Reflux precautions reviewed Code(s): K21.9 - Gastro-esophageal reflux disease without esophagitis Category: Medical Qualifiers: Esophagitis presence: without esophagitis Qualified Code(s): K21.9 - Gastro-esophageal reflux disease without esophagitis Plan: Avoid the foods that causes that usually spicy foods, tomato products, juices, coffee, soda and foods that your sensitive to. After eating do not lie down, allow 3-4 hours before in lie down. And keep the head of bed above 30 degrees to avoid the acid from going up. (4) COPD (chronic obstructive pulmonary disease): Code(s): J44.9 - Chronic obstructive pulmonary disease, unspecified Category: Medical Qualifiers: COPD type: emphysema Emphysema type: unspecified Qualified Code(s): J43.9 - Emphysema, unspecified Plan: Continue with inhalers as needed (5) Infiltrating ductal carcinoma: Comment: 2003 right breast lumpectomy and radiation and tamoxifen Code(s): C50.919 - Malignant neoplasm of unspecified site of unspecified female breast Category: Medical Plan: Mammogram up-to-date and being followed up by hematology oncology and surgeon Plan - Discontinue simvastatin 20 mg and initiate atorvastatin 10 mg for hypercholesterolemia, given patient's intolerance to previous treatment. - For COPD management, continue current inhalers and ensure proper follow-up with hematology and oncology for stability of lung findings. - Encourage the patient to remain hydrated to aid in managing dizziness and monitor any changes in symptom intensity. - Advise the patient to continue GERD treatment with omeprazole and manage constipation as per the current regimen. - Reassure the patient regarding the incidental findings at T5 and axillary lymph nodes, reinforcing current observation strategy without immediate intervention. - Recommend blood work in three months to reassess cholesterol levels and baseline electrolytes. - Address overall joint discomfort concerning the neck and knees with lifestyle adjustments and consider potential referrals if symptoms persist. - Discuss the availability and benefits of RSV vaccination, considering patient risk factors and flu season developments. Orders: Orders Lipid Panel Today E78.00 - Pure hypercholesterolemia, unspecified Comprehensive Met. Panel Today E78.00 - Pure hypercholesterolemia, unspecified Medications: New atorvastatin 10 mg PO DAILY 90 tabs 1RF E78.00 - Pure hypercholesterolemia, unspecified Discontinued simvastatin Discontinued Reason: Doctor's Order 20 mg PO BEDTIME 30 tabs 3RF E78.00 - Pure hypercholesterolemia, unspecified
--- OUTSIDE RECORDS SUMMARY | 2024-05-21 15:36 | XMS_ITS | Clinical Summary ---
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 3 tbs pm 0 Active Multiple Vitamin (MULTI VITAMIN PO) Take by mouth. 0 Ac tive naproxen (NAPROSYN) 500 MG tablet Take 1 tablet (500 mg total) by mouth 2 (two) times a day with meals. 0 Active vitamin C (ASCORBIC ACID) 500 MG tablet Take 1 tablet (500 mg total) by mouth daily. 0 Active fluticasone (FLONASE) 50 MCG/ACT nasal spray spray/apply 1 spray in each nostril daily. 0 Active Probiotic Product (PROBIOTIC DAILY PO) Take by mouth. 0 Active cholecalciferol (VITAMIN D3) 1000 UNITS tablet Take 1 tablet (1,000 Units total) by mouth daily. 0 Active acetaminophen (TYLENOL EXTRA STRENGTH) 500 MG tablet Take 1 tablet (500 mg total) by mouth every 6 (six) hours as needed. 0 Active methocarbamol (ROBAXIN) 500 MG tablet Take 1 tablet (500 mg total) by mouth 3 (three) times a day. 0 Active vitamin E 400 UNIT capsule Take 1 capsule (400 Units total) by mouth daily. 0 Active rosuvastatin (CRESTOR) tablet 20 mg Take 1 tablet (20 mg total) by mouth daily. 0 Active vitamin B-12 (CYANOCOBALAMIN) 500 MCG tablet Take 2 tablets (1,000 mcg total) by mouth daily. 0 Active simvastatin (ZOCOR) tablet 5 mg Take 1 tablet (5 mg total) by mouth every night at bedtime. 0 Active omeprazole (PriLOSEC) 40 MG capsule Take 1 capsule (40 mg total) by mouth daily. 0 Active Active Problems Problem Noted Date Diagnosed Date Malignant neoplasm of overla pping sites of right female breast 11/12/2016 Immunizations Name Administration Dates Next Due Covid-19 (Pfizer) Dilution Required 05/29/2020,0 05/08/2020 Family History Medical History Relation Name Comments Cancer Brother skin Cancer Father lung No Sig Med Hx Mother Relation Name Status Comments Brother Father (Age 63) Mother (Age 86) Social History Tobacco Use Types Packs/Day Years Used Date Smoking Tobacco: Former Smokeless Tobacco: Never Alcohol Use Standard Drinks/Week Comments No 0 (1 standard drink = 0.6 oz pur e alcohol) Sex and Gender Information Value Date Recorded Sex Assigned at Not on file Gender Identity Not on file Sexual Orientation Not on file Job Start Date Occupation Industry Not on file Not on file Not on file Last Filed Vital Signs Vital Sign Reading Time Taken Comments Blood Pressure 123/62 10/05/2023 11:44 AM EDT Pulse 84 10/05/2023 11:44 AM EDT Temperature 36.5 ??C (97.7 ??F) 10/05/2023 11:44 AM E DT Respiratory Rate - - Oxygen Saturation 100% 10/05/2023 11:44 AM EDT Inhaled Oxygen Concentration - - Weight 50.3 kg (111 lb) 10/05/2023 11:44 AM EDT Height 167.6 cm (5' 6 ) 10/05/2023 11:44 AM EDT Body Mass Index 17.92 10/05/2023 11:44 AM EDT Plan of Treatment Health Maintenance Due Date Last Done Comments Hepatitis C Screening 1955 Pneumococcal Vaccine (1 of 2 - PCV) 12/12/1961 Depression Screening 1967 Preventative Health Evaluation 12/12/1973 DTap / Tdap / Td (1 - Tdap) 12/12/1974 Shingrix-Zoster Vaccine (1 o f 2) 12/12/1974 Colon Cancer Screening (Colonoscopy) 12/12/2000 Breast Cancer Screening (Mammogram) 12/12/2005 COVID-19 Vaccine (3 - Pfizer risk series) 06/26/2020 05/29/2020, 05/08/2020 Fall Risk Assessment 12/12/2020 Osteoporosis Screening (DEXA Scan) 12/12/2020 Influenza Vaccine (#1) 2023 RSV Adult > 60+ Yrs or (1 - 1-dose 75+ series) 12/12/2030 Hepatitis B Vaccines Aged Out No long er eligible based on patient's age to complete this topic RSV Ped < 20 months Aged Out No longe r eligible based on patient's age to complete this topic Care Teams 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
--- OUTSIDE RECORDS SUMMARY | 2024-05-21 15:37 | XMS_ITS | Clinical Summary ---
Author Organization [facility] Address [address] [place] [id number] Phone Care Team Providers Care Lye Peel Operator Name Role Phone Vania Matson MD Primary Care Provider [phone] Allergies Active Allergy Reactions Criticality Noted Date Comments Oxycodone-Acetaminophen Nausea Only 11/06/2016 Medications acetaminophen (TYLENOL) 500 mg tablet Take 1 tablet (500 mg total) by mouth every 6 (six) hours as needed. Active cholecalciferol (VITAMIN D-3) 25 mcg (1,000 unit) tablet Take 1 tablet (1,000 Units total) by mouth daily. Active cyanocobalamin (VITAMIN B-12) 500 mcg tablet Take 2 tablets (1,000 mcg total) by mouth daily. Active fluticasone propionate (FLONASE) 50 mcg/actuation nasal spray spray/apply 1 spray in each nostril daily. Active methocarbamoL (ROBAXIN) 500 mg tablet Take 1 tablet (500 mg total) by mouth 3 (three) times a day. Active omeprazole (PriLOSEC) [address] capsule Take 1 capsule (40 mg total) by mouth daily. Active rosuvastatin (CRESTOR) 20 mg tablet Take 1 tablet (20 mg total) by mouth daily. Active simvastatin (ZOCOR) 5 mg tablet Take 1 tablet (5 mg total) by mouth every night at bedtime. Active topiramate (TOPAMAX) 100 mg tablet Take 1 tablet (100 mg total) by mouth 2 (two) times a day. 3 tbs pm Active vitamin E mixed 400 unit capsule Take 1 capsule (400 Units total) by mouth daily. Active ascorbic acid (VITAMIN C) 500 mg chewable tablet Take 1 tablet (500 mg total) by mouth daily. Active naproxen (NAPROSYN) 500 mg tablet Take 1 tablet (500 mg total) by mouth 2 (two) times a day with meals. Active multivitamin tablet Take by mouth. Active L. acidophilus/Bif id. animalis (DAILY PROBIOTIC ORAL) Take by mouth. Active fluorometholone (FML) 0.1 % ophthalmic suspension 03/28/2024 Active Active Problems Problem Noted Date Diagnosed Date Malignant neoplasm of overla pping sites of right female breast 11/12/2016 Encounters Date Type Department Care Team Description 04/06/2024 11:45 AM EST Office Visit [facility] Hematology Oncology [address] [place] [address] Eric Damon MD Malignant neoplasm of overlapping sites of right breast in female, estrogen receptor positive (CMS/HCC) (Primary Dx) from Last 3 Months Surgical History Surgery Date Site/Laterality Comments THYROID SURGERY PROCEDURE:THYROID SURGERY Medical History Medical History Date Comments Malignant neoplasm of overla pping sites of right female breast (CMS/HCC) DX:Malignant neoplasm of overlapping sites of right female breast (HCC) Family History Medical History Relation Name Comments Cancer Brother skin Cancer Father lung No Known Problems Mother Relation Name Status Comments Brother Father (Age 63) Mother (Age 86) Social History Tobacco Use Types Packs/Day Years Used Date Smoking Tobacco: Former Smokeless Tobacco: Never Alcohol Use Standard Drinks/Week Comments No 0 (1 standard drink = 0.6 oz pur e alcohol) Comments Unknown Sex and Gender Information Value Date Recorded Sex Assigned at Not on file Legal Sex Female 6:17 AM EST Gender Identity Not on file Sexual Orientation Not on file Obstetrics History Last Filed Vital Signs Vital Sign Reading Time Taken Comments Blood Pressure 119/55 04/06/2024 12:03 PM EST Pulse 79 04/06/2024 12:03 PM EST Temperature 37.1 ??C (98.7 ??F) 04/06/2024 12:[address] Respiratory Rate - - Oxygen Saturation 100% 04/06/2024 12:03 PM EST Inhaled Oxygen Concentration - - Weight 51.7 kg (114 lb) 04/06/2024 12:03 PM EST Height 167.6 cm (5' 6 ) 10/05/2023 11:44 AM EDT Body Mass Index 18.4 10/05/2023 11:44 AM EDT Plan of Treatment Upcoming Encounters Date Type Department Care Team (Late st Contact Info) Description 09/13/2024 11:45 AM EDT Office Visit [facility] Hematology Oncology [address] [place] [phone] Eric Damon MD [address] [place] [address] 12/14/2024 1:00 PM EDT [facility]ointment [facility] [address] [phone] Health Maintenance Due Date Last Done Comments Zoster Vaccines (2 of 2) 02/19/2019 019, 01/23/2016, 08/19/2015 Cholesterol Screening (Lipid Panel) 03/19/2022 Colorectal Cancer Screening: Colonoscopy 03/19/2022 Depression Screening 03/19/2022 Falls Risk Assessment 03/19/2022 Hepatitis C Screening 03/19/2022 Osteoporosis Screening (Bone Density Screening) 03/19/2022 Social Influencers of Health Screening 03/19/2022 DTaP,Tdap,and Td Vaccines (2 - Td or Tdap) 11/15/2023 10/18/2023 COVID-19 Vaccine ( season) 2023 01/16/2021, 05/29/2020, 05/08/2020 Breast Cancer Screening 2025 12/14/19 24, 12/09/2022, 12/07/2021, Additional history exists RSV Immunization Patients 60+ Years Old (1 - 1-dose 75+ series) 12/12/2030 Pneumococcal Vaccine: 50+ Years Completed 12/24/2021, 12/26/2020 Influenza Vaccine Completed 01/13/2024, , 01/31/2022, Additional history exists HIB Vaccines Aged Out No longer eligi ble based on patient's age to complete this topic HPV Vaccines Aged Out No longer eligi ble based on patient's age to complete this topic Hepatitis A Vaccines Aged Out No long er eligible based on patient's age to complete this topic Hepatitis B Vaccines Aged Out No long er eligible based on patient's age to complete this topic IPV Vaccines Aged Out No longer eligi ble based on patient's age to complete this topic MMR Vaccines Aged Out No longer eligi ble based on patient's age to complete this topic Meningococcal ACWY Vaccine Aged Out N o longer eligible based on patient's age to complete this topic Meningococcal B Vacine Aged Out No lo nger eligible based on patient's age to complete this topic RSV Immunization Patients Under 20 months Aged Out No longer eligible based on patient's age to complete this topic Varicella Vaccines Aged Out No longer eligible based on patient's age to complete this topic Procedures Procedure Name Priority Date/Time Associated Diagnosis Comments HISTORICAL IMAGING SCAN RESULT 04/06/2024 [facility] SCREENING DIGITAL Routine 12/14/2023 2:58 PM EDT Encounter for screening mammogram for malignant neoplasm of breast from Last 3 Months or Most Recently Relevant to Health Maintenance Results * HISTORICAL IMAGING SCAN RESULT (04/06/2024) Anatomical Region Laterality Modality Ultrasound us Provider Onbase MD LEI US PROCEDURES Final Resul t * [facility] SCREENING DIGITAL (12/14/2023 2:58 PM EDT) Anatomical Region Laterality Modality Mammography 12/14/2023 11:0 8 AM EDT Narrative 12/14/2023 2:58 PM EDT [facility] Diagnostic Imaging Department [address] [place] [id number] Patient: ??GEORGI HAMILTON ?/Age/Sex: 1955 - 68 - F Unit#: ??[id number] ? Location/Status: ??SPDIMAM/REG CLI ? Mnemonic/Ordering Site: ??DIGSC/SPMAM Ordering Physician: ??ERIC DAMON MD [facility] Screening Digital - 12/14/23 - 1134 Report Status:Signed EXAM: [facility] Screening Digital EXAM DATE AND TIME: 12/14/2023 11:44 AM HISTORY: ??Screening. Personal history of right breast carcinoma treated with lumpectomy in 2003 followed by radiation treatment. Prior left breast biopsy, pathology benign. Maternal cousin had breast carcinoma. COMPARISON: ??12/09/22, 12/07/21, 12/05/20 TECHNIQUE: Bilateral digital breast tomosynthesis was performed in the CC and MLO projections. Computer aided detection with Easy Eye 3D 3.1 was employed. TISSUE DENSITY: c. The breasts are heterogeneously dense, which may obscure small masses. FINDINGS: Focal spiculated asymmetry is again seen in the middle 6:00 position of the right breast, with thickening and retraction of the overlying skin, consistent with the lumpectomy scar. There has been no significant change. No suspicious masses, grouped microcalcifications, or developing architectural distortion are seen. Scattered microcalcifications are without significant change. Vascular calcification is present. IMPRESSION: Stable mammographic appearance of the breasts, including lumpectomy changes in the right breast. ??No evidence of malignancy is seen. A negative mammogram in the presence of a clinically suspicious palpable abnormality does not preclude the possibility of malignancy or alter the indications for biopsy. BI-RADS: ??Category 2: Benign RECOMMENDATION(S): 1: Routine screening mammogram BILATERAL in 1 year. Dictating Physician: ??BRISEDIA CRAIN MD Electronically Signed by: ??BRISEIDA CRAIN MD Dic Date/Time: ??12/14/23 3956 Sign date/Time: ??12/14/23 6059 Procedure Note Briseida Crain MD - 01/25/2024 [facility] Diagnostic Imaging Department [address] [place] [id number] Patient: GEORGI HAMILTON Mery Oliveros/Age/Sex: 1955 - 68 - F Unit#: [id number] Location/Status: [facility] CLI Mnemonic/Ordering Site: [facility] Ordering Physician: ERIC DAMON MD [facility] Screening Digital - 12/14/23 - 1134 Report Status:Signed EXAM: [facility] Screening Digital EXAM DATE AND TIME: 12/14/2023 11:44 AM HISTORY: Screening. Personal history of right breast carcinoma treatedwith lumpectomy in 2003 followed by radiation treatment. Prior left breastbiopsy, pathology benign. Maternal cousin had breast carcinoma. COMPARISON: 12/09/22, 12/07/21, 12/05/20 TECHNIQUE: Bilateral digital breast tomosynthesis was performed in the CCand MLO projections. Computer aided detection with Easy Eye 3D 3.1was employed. TISSUE DENSITY: c. The breasts are heterogeneously dense, which mayobscure small masses. FINDINGS: Focal spiculated asymmetry is again seen in the middle 6:00 position ofthe right breast, with thickening and retraction of the overlying skin,consistent with the lumpectomy scar. There has been no significant change. No suspicious masses, grouped microcalcifications, or developingarchitectural distortion are seen. Scattered microcalcifications are withoutsignificant change. Vascular calcification is present. IMPRESSION: Stable mammographic appearance of the breasts, including lumpectomychanges in the right breast. No evidence of malignancy is seen. A negative mammogram in the presence of a clinically suspicious palpable abnormality does not preclude the possibility of malignancy or alter the indications for biopsy. BI-RADS: Category 2: Benign RECOMMENDATION(S): 1: Routine screening mammogram BILATERAL in 1 year. Dictating Physician: BRISEIDA CRAIN MD Electronically Signed by: BRISEIDA CRANI MD Dic Date/Time: 12/14/231456 Sign date/Time: 12/14/231457 us Eric Damon MD IMG BI PROCEDURES Final Res ult from Last 3 Months or Most Recently Relevant to Health Maintenance Insurance [facility] Care Teams Lye Peel Operator Relationship Specialty Start Date End Date Vania Matson MD [address] [place] [address] [address] [facility] [place] [address] PCP - General Internal Medicine 11/12/16
== END 2024-05-21 14:50 | disposition home or self-care (01) ==
PROVIDERS: PCP Internal Medicine; Visit Provider Internal Medicine
DX: K25.9 Gastric ulcer, unspecified as acute or chronic, without hemorrhage or perforation (principal); E78.00 Pure hypercholesterolemia, unspecified; C50.919 Malignant neoplasm of unspecified site of unspecified female breast; J43.9 Emphysema, unspecified; K21.9 Gastro-esophageal reflux disease without esophagitis

== ENCOUNTER → 2024-05-21 14:18 | Outpatient (BNVA) | payer MEDICARE, SELFPAY | PROVIDERS: PCP Internal Medicine; Visit Provider Internal Medicine | DX: K52.9 Noninfective gastroenteritis and colitis, unspecified (principal); E78.00 Pure hypercholesterolemia, unspecified; K21.9 Gastro-esophageal reflux disease without esophagitis; J43.9 Emphysema, unspecified; C50.919 Malignant neoplasm of unspecified site of unspecified female breast | CPT/HCPCS: 99212 ==

== ENCOUNTER 2024-06-14 12:58 | Outpatient (AMB) | payer MEDICARE, SELFPAY ==
--- NOTE | 2024-06-14 13:06 | A.OFFPC_ITS ---
Vital Signs 3 06/14/24 13:08 Height 5 ft 6.5 in Weight 113 lb BMI 18.0 BP 122/70 Blood Pressure Location Lt brachial Position Sitting Pulse 90 Pulse Source Pulse Oximeter Pulse Oximetry (%) 97 Oxygen Delivery Method Room Air Intake Visit Reasons: bad rash for two weeks Director Telemetry Required: No Accompanied by: Self / Same As Patient Allergies oxycodone [Percocet] Allergy (Unknown, Verified 06/14/24 13:12) Unknown rosuvastatin Adverse Reaction (Verified 06/14/24 13:12) myalgia Tobacco use date assessed: 05/21/24 Fall risk assessment: No Falls in past year Last assessed Fall Risk: 06/14/24 Dental Screening Dental Screen Date: 05/21/24 HPI bad rash for two weeks 2 HPI0 Details rash on the trunk no on arms and nobody in the house History of Present Illness The patient is a 68-year-old female presenting for a follow-up concerning her chronic conditions, notably atherosclerotic cardiovascular disease. Her recorded medical history includes COPD, which has involved usual care for symptom management and prevention of exacerbations. Hypercholesterolemia is present, and she remains under pharmacological control to address elevated lipid levels. Cervical degenerative disc disease is present without current intervention needs. She has GERD managed with proton pump inhibitors or similar agents, and no recent symptomatology of gastric ulcer recurrence. Chronic constipation has been addressed by dietary measures and stool softeners to mitigate symptoms. Her oncological history of right breast cancer in 2003 remains significant for continued surveillance considerations. All blood work and renal function indicators have maintained baseline stability as of January 25. Health Maintenance - Regular monitoring of lipid levels for hypercholesterolemia - Surveillance for atherosclerotic cardi ovascular disease progression - Regular follow-up for COPD management - Continual caution for GERD symptom rec urrence - Breast cancer surveillance Social History Review of Systems Physical Exam Results - Labs: Normal blood count, electrolytes , and renal function from January 25 visit Plan In managing her chronic ailments, the patient will continue pharmacologic interventions for COPD and hyperlipidemia with ongoing risk factor adjustment for atherosclerotic cardiovascular disease. GERD will remain under surveillance due to the chronic nature of her condition. Chronic constipation management persists with dietary guidance. The patient's breast cancer history necessitates regular surveillance monitoring. Current laboratory values suggest stability across chronic condition markers. No new referrals or diagnostic testing was indicated. Patient was informed and verbally consented to the use of an ambient scribe for clinic note documentation during this visit. Discussion Notes The visit encompassed follow-up discussions reinforcing the importance of managing chronic conditions like COPD and atherosclerotic cardiovascular disease. I emphasized adherence to current pharmaceutical regimens and lifestyle modifications as a cornerstone for risk management. Continuation of GERD and constipation management was highlighted, underscoring routine monitoring. The patient expressed understanding of ongoing breast cancer surveillance and these various chronic disorder management plans. Future follow-up visits were implied for ongoing care efficacy evaluation. Patient Instructions - Adhere to prescribed medications for a ll chronic conditions - Monitor dietary intake pertinent to hy percholesterolemia and GERD - Continue management strategies for chr onic constipation - Maintain regular checkups for comprehe nsive surveillance of chronic conditions - Report any new symptoms or concerns pr omptly Two weeks of having rash on the trunk and the back with nothing on the arms and legs pruritic in nature and persistent prompting for consultation. Patient could not remember any inciting event that started a rash denies changes in so clothing meds. Patient does have a CT but nobody in the family has had any problems like this. Patient thought though she recently had a perm. Persistence of the pruritus prompting for consultation does take Benadryl twice a day with no relief. [facility] Medical History Migraine Dysphagia History of colon polyps Blind left eye Thyroid nodule Carotid stenosis, right Left renal stone GERD (gastroesophageal reflux disease) Degenerative disc disease, cervical Hypercholesterolemia Pericardial effusion Breast cancer Surgical History History of esophagogastroduodenoscopy (EGD) History of shoulder surgery History of tonsillectomy History of vaginal hysterectomy History of lobectomy of thyroid H/O lymph node biopsy H/O lumpectomy Family History Mother Dementia Father Lung cancer metastatic to bone Maternal Uncle FH: prostate cancer Paternal Uncle FH: prostate cancer Maternal Uncle Myocardial infarct Brother Skin cancer Primary cutaneous large T-cell lymphoma Social History Household Members: Spouse Housing: House Do you presently have visiting nurse or other home services: No Alcohol intake: never Patient Tobacco Use Status: Former Tobacco user Tobacco use type: Cigarette Years Smoked: quit 30 years old e-Cigarette/Vaping Use: Never Used Second Hand Smoke Exposure: No Advance Directives Date on File: 01/28/20 service: No Current occupational status: 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 1. Little interest or pleasure in doing things: not at all 2. Feeling down, depressed, or hopeless: not at all 3. Trouble falling or staying asleep, or sleeping too much: not at all 4. Feeling tired or having little energy: not at all 5. Poor appetite or overeating: not at all 6. Feeling bad about yourself - or that you are a failure or have let yourself or your family down: not at all 7. Trouble concentrating on things, such as reading the newspaper or watching television: not at all 8. Moving or speaking so slowly that other people could have noticed. Or the opposite - being so fidgety or restless that you have been moving around a lot more than usual: not at all 9. Thoughts that you would be better off or of hurting yourself in some way: not at all Total score: 0 Depression Screening Interpretation: Negative Depression Screening Done: Yes Source: Developed by Drs. Keith Mast, Deanna Rodriguez, Tk Reddy and colleagues, with an educational kelle from [email or web address]. Thrive Questionnaire Date Thrive assessed: 06/14/24 I am a: Patient What is your living situation today?: I have a steady place to live Within the past 12 months, did the food you bought not last and you didn't have the money to get more?: Never true Within the past 12 months, did you worry whether your food would run out before you got money to buy more?: Never true Do you have trouble paying for medicines?: No Do you have trouble getting transportation to medical appointments?: No Do you have trouble paying your heating and electricity bill?: No Do you have trouble taking care of your child, family member or friend?: No Do you have trouble with day-to-day activities such as bathing, preparing meals, shopping, managing finances, etc.?: No Are you currently unemployed and looking for a job?: No Are you interested in more education?: No Please select the resources that you would like help with: None Currently or been in a relationship where the following occur: No concerns reported THRIVE Score: 0 AUDIT C Alcohol Use Questionnaire (AUDIT-C) 1. How often do you have a drink containing alcohol?: 2-4 times a month 2. How many drinks containing alcohol do you have on a typical day when you are drinking?: 1 or 2 3. How often do you have six or more drinks on one occasion?: Never Total Score: 2 SANGITA-7 AMB Questionnaire SANGITA-7 Date SANGITA - 7 assessed: 06/14/24 Feeling nervous, anxious, or on edge: 0 = Not at all Not being able to stop or control worryin = Not at all Worrying too much about different things: 0 = Not at all Trouble relaxin = Not at all Being so restless that it is hard to sit still: 0 = Not at all Becoming easily annoyed or irritable: 0 = Not at all Feeling afraid as if something awful might happen: 0 = Not at all Total SANGITA-7 score (0-4 normal; 5-9 mild; 10-14 moderate; 15-21 severe): 0 Source: Developed by Drs. Keith Mast, Deanna Rodriguez, Tk Reddy and colleagues, with an educational kelle from [email or web address]. Physical exam (Primary Care) BMI result Body Mass Index 18.0 Tobacco/Smoking Status: Tobacco use Status Tobacco use date assessed 05/21/24 05/21/24 14:29 Patient Tobacco Use Status Former Tobacco user 05/21/24 14:24 Tobacco use type Cigarette 05/21/24 14:24 e-Cigarette/Vaping Use Never Used 05/21/24 14:24 Depression Screening Interpretation: Negative Thrive Assessment: Date of Thrive Assessment Date Thrive assessed 05/21/24 05/21/24 14:29 Currently or been in a relationship where the following occur: No concerns reported Extrem Other: multiple erythematous papular rash on the trunk and back , non on the arms and legs Shoulder/upper arm images: 2 1. multiple erythematous papular rash on the chest and back , no pattern scattered around non on gthe arms and legs 2. 3. 4. 5. 6. 7. 8. 9. 10. 11. 12. Coding Level of Care Code Est Pt Level 3 (63232) Diagnoses Allergic dermatitis L23.9 Assessment & Plan Assessment & Plan (1) Allergic dermatitis: Code(s): L23.9 - Allergic contact dermatitis, unspecified cause Category: Medical Plan: Patient is prescribed steroids and hydroxyzine to help with the itchiness advised to take allergy medication once a day.. If this persist we will get dermatology involved. Medications: New 2 hydroxyzine HCl 25 mg PO TID PRN 30 tabs 0RF itching L23.9 - Allergic contact dermatitis, unspecified cause prednisone 4 tabs QD x 2 days then 3 tabs QD x 2 days then 2 tabs Qd x 2 days then 1 tab QD x 2 days PO daily; 20 tabs 0RF J45.909 - Unspecified asthma, uncomplicated, L23.9 - Allergic contact dermatitis, unspecified cause
[2024-06-14 13:08] VITALS: BP 122/70; PULSE 90; O2SAT 97; BMI 18.0
--- OUTSIDE RECORDS SUMMARY | 2024-06-14 15:40 | XMS_ITS | Clinical Summary ---
Author Organization [facility] Address [address] [place] [address] Care Team Providers Care Computer Artist Name Role Phone Vania Matson MD Primary Care Provider [phone] Allergies Active Allergy Reactions Criticality Noted Date [...] age to complete this topic Care Teams Computer Artist Relationship Specialty Start Date End Date Dano, Vania Padilla MD [address] [place] [address] [address] [facility] [place] [address] PCP - General Internal Medicine 11/12/16
--- OUTSIDE RECORDS SUMMARY | 2024-06-14 15:40 | XMS_ITS | Clinical Summary ---
Author Organization [facility] Address [address] [place] [phone] Phone Care Team Providers Care Supervisor Meter Shop Name Role Phone Vania Matson MD Primary Care Provider [phone] Allergies Active Allergy Reactions Criticality Noted Date [...] Description 04/06/2024 11:45 AM EST Office Visit [facility] Hematology Oncology [address] [place] [address] Eric Damon MD Malignant neoplasm [...] Description 09/13/2024 11:45 AM EDT Office Visit [facility] Hematology Oncology [address] [place] [phone] Eric Damon MD [address] [place] [address] 12/14/2024 1:00 PM EDT [facility] [address] [address] Health Maintenance Due Date Last Done Comments Zoster Vaccines (2 of 2) 02/19/2019 019, 01/23/2016, 08/19/2015 Cholesterol Screening (Lipid Panel) 03/19/2022 Colorectal Cancer Screening: Colonoscopy 03/19/2022 Depression Screening 03/19/2022 Falls Risk Assessment 03/19/2022 Hepatitis C Screening 03/19/2022 Osteoporosis Screening (Bone Density Screening) 03/19/2022 Social Influencers of Health Screening 03/19/2022 COVID-19 Vaccine ( season) 2023 01/16/2021, 05/29/2020, 05/08/2020 Breast Cancer Screening 2025 12/14/19 24, 12/09/2022, 12/07/2021, Additional history exists RSV Immunization Patients 60+ Years Old (1 - 1-dose 75+ series) 12/12/2030 DTaP,Tdap,and Td Vaccines (2 - Td or Tdap) 10/17/2033 10/18/2023 Pneumococcal Vaccine: 50+ Years Completed 12/24/2021, 12/26/2020 [...] Diagnosis Comments HISTORICAL IMAGING SCAN RESULT 04/06/2024 [facility] SCREENING DIGITAL Routine 12/14/2023 2:58 PM EDT Encounter for screening mammogram for malignant neoplasm of breast from Last 3 Months or Most Recently Relevant to Health Maintenance Results * HISTORICAL IMAGING SCAN RESULT (04/06/2024) Anatomical Region Laterality Modality Ultrasound us Provider Onbase MD LEI US PROCEDURES Final Resul t * [facility] SCREENING DIGITAL (12/14/2023 2:58 PM EDT) Anatomical Region Laterality Modality Mammography 12/14/2023 11:0 8 AM EDT Narrative 12/14/2023 2:58 PM EDT [facility] Diagnostic Imaging Department [address] [place] [address] Patient: ??GEORGI HAMILTON ?/Age/Sex: 1955 - 68 - F Unit#: ??[id number] ? Location/Status: ??SPDIMAM/REG CLI ? Mnemonic/Ordering Site: ??DIGSC/SPMAM Ordering Physician: ??ERIC DAMON MD [facility] Screening Digital - 12/14/23 - 1134 Report Status:Signed EXAM: [facility] Screening Digital EXAM DATE AND TIME: 12/14/2023 11:44 AM HISTORY: ??Screening. Personal history of right breast carcinoma treated with lumpectomy in 2003 followed by radiation treatment. Prior left breast biopsy, pathology benign. Maternal cousin had breast carcinoma. COMPARISON: ??12/09/22, 12/07/21, 12/05/20 TECHNIQUE: Bilateral digital breast tomosynthesis was performed in the CC and MLO projections. Computer aided detection with [employer] 3D 3.1 was employed. TISSUE DENSITY: c. [...] mammogram BILATERAL in 1 year. Dictating Physician: ??BRISEIDA CRAIN MD Electronically Signed by: ??BRISEIDA CRAIN MD Dic Date/Time: ??12/14/23 3743 Sign date/Time: ??12/14/23 7765 Procedure Note Briseida Crain MD - 01/25/2024 [facility] Diagnostic Imaging Department [address] [place] [id number] Patient: GEORGI HAMILTON Mery Oliveros/Age/Sex: 1955 - 68 - F Unit#: [id number] Location/Status: [facility] CLI Mnemonic/Ordering Site: [facility] Ordering Physician: ERIC DAMON MD [facility] Screening Digital - 12/14/23 - 1134 Report Status:Signed EXAM: [facility] Screening Digital EXAM DATE AND TIME: 12/14/2023 11:44 AM HISTORY: Screening. Personal history of right breast carcinoma treatedwith lumpectomy in 2003 followed by radiation treatment. Prior left breastbiopsy, pathology benign. Maternal cousin had breast carcinoma. COMPARISON: 12/09/22, 12/07/21, 12/05/20 TECHNIQUE: Bilateral digital breast tomosynthesis was performed in the CCand MLO projections. Computer aided detection with FiFully 3D 3.1was employed. TISSUE DENSITY: c. The [...] BRISEIDA CRAIN MD Electronically Signed by: BRISEIDA CRAIN MD Dic Date/Time: 12/14/231456 Sign date/Time: 12/14/231457 us Eric Damon MD IMG BI PROCEDURES Final Res ult from Last 3 Months or Most Recently Relevant to Health Maintenance Insurance [facility] Care Teams Supervisor Meter Shop Relationship Specialty Start Date End Date Vania Matson MD [address] [place] [address] [address] [facility] [place] [address] PCP - General Internal Medicine 11/12/16
== END 2024-06-14 13:29 | disposition home or self-care (01) ==
PROVIDERS: PCP Internal Medicine; Visit Provider Internal Medicine
DX: L23.9 Allergic contact dermatitis, unspecified cause (principal)

== ENCOUNTER → 2024-06-14 12:58 | Outpatient (BNVA) | payer MEDICARE, SELFPAY | PROVIDERS: PCP Internal Medicine; Visit Provider Internal Medicine | DX: L23.9 Allergic contact dermatitis, unspecified cause (principal) | CPT/HCPCS: 99212 ==

== ENCOUNTER 2024-08-15 11:26 | Outpatient (REF) | payer MEDICARE, SELFPAY ==
--- OUTSIDE RECORDS SUMMARY | 2024-08-15 12:52 | XMS_ITS | Clinical Summary ---
Author Organization [facility] Address [address] [place] [address] Care Team Providers Care Tool Maker Bench Name Role Phone Vania Matson MD Primary Care Provider [phone] Allergies Active Allergy Reactions Criticality Noted Date [...] age to complete this topic Care Teams Tool Maker Bench Relationship Specialty Start Date End Date Dano, Vania Padilla MD [address] [place] [address] [address] [facility] [place] [address] PCP - General Internal Medicine 11/12/16
[2024-08-15 14:06] LABS: Alanine Aminotransferase 11 U/L (0-31); Albumin Level 4.5 g/dL (3.5-5.0); Alkaline Phosphatase 67 U/L (39-117); Anion Gap 10 (12-20); Aspartate Amino Transferase 15 U/L (5-31); Bilirubin Total 0.4 mg/dL (0.0-1.0); Blood Urea Nitrogen 12 mg/dL (9-16); Calcium 9.6 mg/dL (8.4-10.2); Carbon Dioxide 23 mmol/L (22-29); Chloride 113 mmol/L (96-108); Cholesterol 188 mg/dL (<200); Estimated Glomerular Filt Rate > 60; Glucose Random 87 mg/dL (60-115); HDL Cholesterol 56 mg/dL (>40); LDL Cholesterol Calculated 113 mg/dL (<100); Potassium 4.3 mmol/L (3.3-5.1); Sodium 142 mmol/L (135-145); Total Protein 6.7 g/dL (6.5-8.0); Triglycerides 95 mg/dL (<150)
== END 2024-08-15 11:27 | disposition home or self-care (01) ==
LOC: HO.HMGCLDS 11:26
PROVIDERS: PCP Internal Medicine; Visit Provider Internal Medicine
DX: E78.00 Pure hypercholesterolemia, unspecified (principal)
CPT/HCPCS: 36415; 80053; 80061

== ENCOUNTER 2024-08-21 12:17 | Outpatient (AMB) | payer MEDICARE, SELFPAY ==
[2024-08-21 12:21] VITALS: BP 112/68; PULSE 77; O2SAT 97; BMI 18.3
--- NOTE | 2024-08-21 12:21 | A.OFFPC_ITS ---
Vital Signs 08/21/24 12:21 Height 5 ft 6.5 in Weight 115 lb BMI 18.3 BP 112/68 Blood Pressure Location Lt brachial Position Sitting Pulse 77 Pulse Source Pulse Oximeter Pulse Oximetry (%) 97 Oxygen Delivery Method Room Air Intake Visit Reasons: 3mth f/u Allergies oxycodone [Percocet] Allergy (Unknown, Verified 08/21/24 12:22) Unknown atorvastatin Adverse Reaction (Intermediate, Unverified 08/21/24 12:40) neck pain rosuvastatin Adverse Reaction (Verified 08/21/24 12:22) myalgia Tobacco use date assessed: 05/21/24 Fall risk assessment: No Falls in past year Last assessed Fall Risk: 08/21/24 Dental Screening Dental Screen Date: 05/21/24 [facility] Medical History Migraine Dysphagia History of colon polyps Blind left eye Thyroid nodule Carotid stenosis, right Left renal stone GERD (gastroesophageal reflux disease) Degenerative disc disease, cervical Hypercholesterolemia Pericardial effusion Breast cancer Surgical History History of esophagogastroduodenoscopy (EGD) History of shoulder surgery History of tonsillectomy History of vaginal hysterectomy History of lobectomy of thyroid H/O lymph node biopsy H/O lumpectomy Family History Mother Dementia Father Lung cancer metastatic to bone Maternal Uncle FH: prostate cancer Paternal Uncle FH: prostate cancer Maternal Uncle Myocardial infarct Brother Skin cancer Primary cutaneous large T-cell lymphoma Social History Household Members: Spouse Housing: House Do you presently have visiting nurse or other home services: No Alcohol intake: never Patient Tobacco Use Status: Former Tobacco user Tobacco use type: Cigarette Years Smoked: quit 30 years old e-Cigarette/Vaping Use: Never Used Second Hand Smoke Exposure: No Advance Directives Date on File: 01/28/20 service: No Current occupational status: retired 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 1. Little interest or pleasure in doing things: nearly every day 2. Feeling down, depressed, or hopeless: not at all 3. Trouble falling or staying asleep, or sleeping too much: not at all 4. Feeling tired or having little energy: not at all 5. Poor appetite or overeating: not at all 6. Feeling bad about yourself - or that you are a failure or have let yourself or your family down: not at all 7. Trouble concentrating on things, such as reading the newspaper or watching television: not at all 8. Moving or speaking so slowly that other people could have noticed. Or the opposite - being so fidgety or restless that you have been moving around a lot more than usual: not at all 9. Thoughts that you would be better off or of hurting yourself in some way: not at all Total score: 3 Source: Developed by Drs. Keith Mast, Deanna Rodriguez, Tk Reddy and colleagues, with an educational kelle from [employer]. Thrive Questionnaire Date Thrive assessed: 06/14/24 I am a: Patient What is your living situation today?: I have a steady place to live Within the past 12 months, did the food you bought not last and you didn't have the money to get more?: Never true Within the past 12 months, did you worry whether your food would run out before you got money to buy more?: Never true Do you have trouble paying for medicines?: No Do you have trouble getting transportation to medical appointments?: No Do you have trouble paying your heating and electricity bill?: No Do you have trouble taking care of your child, family member or friend?: No Do you have trouble with day-to-day activities such as bathing, preparing meals, shopping, managing finances, etc.?: No Are you currently unemployed and looking for a job?: No Are you interested in more education?: No Please select the resources that you would like help with: None Currently or been in a relationship where the following occur: No concerns reported THRIVE Score: 0 AUDIT C Alcohol Use Questionnaire (AUDIT-C) 1. How often do you have a drink containing alcohol?: Never Total Score: 0 SANGITA-7 AMB Questionnaire SANGITA-7 Date SANGITA - 7 assessed: 06/14/24 Feeling nervous, anxious, or on edge: 0 = Not at all Not being able to stop or control worryin = Not at all Worrying too much about different things: 0 = Not at all Trouble relaxin = Not at all Being so restless that it is hard to sit still: 0 = Not at all Becoming easily annoyed or irritable: 0 = Not at all Feeling afraid as if something awful might happen: 0 = Not at all Total SANGITA-7 score (0-4 normal; 5-9 mild; 10-14 moderate; 15-21 severe): 0 Source: Developed by Drs. Keith Mast, Deanna Rodriguez, Tk Reddy and colleagues, with an educational kelle from [employer]. Physical exam (Primary Care) Vital Signs: Last Vital Signs Pulse 77 08/21/24 12:21 BP 112/68 08/21/24 12:21 Pulse Ox 97 08/21/24 12:21 Oxygen Delivery Method Room Air 08/21/24 12:21 BMI result Body Mass Index 18.3 Tobacco/Smoking Status: Tobacco use Status Tobacco use date assessed 05/21/24 08/21/24 12:27 Patient Tobacco Use Status Former Tobacco user 08/21/24 12:27 Tobacco use type Cigarette 08/21/24 12:27 e-Cigarette/Vaping Use Never Used 08/21/24 12:27 PHQ-9: PHQ-9 Score PHQ-9: Total score 3 08/21/24 12:27 Thrive Assessment: Date of Thrive Assessment Date Thrive assessed 06/14/24 08/21/24 12:27 Currently or been in a relationship where the following occur: No concerns reported Const General: alert; No acute distress Eyes Conjunctivae: conjunctivae normal Resp Auscultation: clear to auscultation bilaterally Cardio Rate: regular rate Rhythm: regular rhythm GI Inspection: Yes normal to inspection Extrem General: Yes normal to inspection and No edema Coding Level of Care Code Est Pt Level 4 (90780) Diagnoses Atherosclerotic cardiovascular disease I25.10 Gastroesophageal reflux disease without esophagitis K21.9 Esophagitis presence: without esophagitis Pulmonary emphysema, unspecified emphysema type J43.9 COPD type: emphysema Emphysema type: unspecified Cervical spondylosis M47.812 Assessment & Plan Assessment & Plan (1) Atherosclerotic cardiovascular disease: Code(s): I25.10 - Atherosclerotic heart disease of [place] coronary artery without angina pectoris Category: Medical Plan: Control the cholesterol, weight, blood pressure, discussed with the patient on cholesterol problems. (2) GERD (gastroesophageal reflux disease): Comment: She will give trial to pantoprazole daily and hope she has better coverage Reflux precautions reviewed Code(s): K21.9 - Gastro-esophageal reflux disease without esophagitis Category: Medical Qualifiers: Esophagitis presence: without esophagitis Qualified Code(s): K21.9 - Gastro-esophageal reflux disease without esophagitis Plan: Avoid the foods that causes that usually spicy foods, tomato products, juices, coffee, soda and foods that your sensitive to. After eating do not lie down, allow 3-4 hours before in lie down. And keep the head of bed above 30 degrees to avoid the acid from going up. (3) COPD (chronic obstructive pulmonary disease): Code(s): J44.9 - Chronic obstructive pulmonary disease, unspecified Category: Medical Qualifiers: COPD type: emphysema Emphysema type: unspecified Qualified Code(s): J43.9 - Emphysema, unspecified Plan: Continue with omeprazole 40 mg twice a day and Anoro (4) Cervical spondylosis: Code(s): M47.812 - Spondylosis without myelopathy or radiculopathy, cervical region Category: Medical Plan History of Present Illness The patient is a 68-year-old female presenting for follow-up on several chronic conditions. She has long-standing COPD with pulmonary nodules, hypercholestero lemia, GERD, cervical disc degenerative disease, and history of gastric ulcer, along with a history of breast cancer (right side, 2003). Her atherosclerotic cardiovascular disease presents significant management needs, particularly in her cholesterol levels, which have remained elevated despite atorvastatin therapy. The adjustment from atorvastatin back to simvastatin was discussed due to intolerable neck pain which is a concern given her cervical disc disease. Despite omeprazole, she continues to experience GERD symptoms. Her cardiovascular risks warrant a more aggressive cholesterol management plan. She has an upcoming pulmonology appointment in September to review her COPD management. Her neck pain, exacerbated with atorvastatin use, significantly impacts her quality of life, limiting sleep and activity. Consideration for additional orthopedic evaluation was given, as past surgeries have not addressed the current cervical spine and referred pain. Her ongoing kidney function, electrolytes, and glucose levels were normal in recent tests. Health Maintenance - Mammogram last completed in December 2023. - Colonoscopy completed in 2020. - Emphasis on reducing LDL cholesterol to target levels due to cardiovascular risk. - Continuous management of COPD and pulmonary function with plans for vp customer development review in September. Social History Review of Systems - Cardiovascular: Reports atherosclerotic cardiovascular disease. - Respiratory: Reports COPD with pulmonary nodules; shortness of breath. - Gastrointestinal: Reports recurrent GERD symptoms. - Musculoskeletal: Reports significant cervical neck pain, exacerbated by current statin therapy. - Neurological: Denies any new neurological symptoms, but pain impacting sleep. - Hematological: Mild leukopenia noted in blood work. Physical Exam Results - Labs: May blood work shows normal electrolytes, normal renal function, normal blood sugar; mild leukopenia noted. - Review of previous imaging showing pulmonary nodules. Plan I reviewed the management of her chronic conditions, notably switching her cholesterol medication to simvastatin given previous tolerability issues with atorvastatin, bearing in mind the need for aggressive LDL reduction. I reminded her of the importance of maintaining her GERD management protocol and highlighted the necessity of considering alternative pain management strategies for her cervical disc degenerative disease. Her COPD symptoms require ongoing attention, and her pulmonology review will provide further direction for management. We will continue to monitor all parameters, with emphasis on follow- up lab tests three months post-simvastatin initiation. Patient was informed and verbally consented to the use of an ambient scribe for clinic note documentation during this visit. Discussion Notes I discussed with the patient the need to address her hypercholesterolemia more aggressively due to her cardiovascular history. We talked about the risks and benefits of changing back to simvastatin, given her intolerance to atorvastatin, and she agreed to start at 20 mg. I emphasized follow-up testing in three months to assess the efficacy and tolerability. I reviewed her persistent GERD symptoms and reinforced ongoing proton pump inhibitor use. Her COPD management requires vp customer development involvement, with her next appointment scheduled for September. The need for potential orthopedic consultation was mentioned due to her debilitating cervical neck pain. Conservative pain management with meloxicam and muscle relaxants continues, but alternative therapies may be explored if necessary for symptom control. Patient Instructions - Switch to simvastatin 20 mg daily for cholesterol management. - Continue omeprazole for GERD symptoms. - Schedule follow-up blood work in three months to check cholesterol levels. - Keep pulmonology appointment for COPD review in September. - Consider exploring orthopedic referral for neck pain evaluation. - Continue prescribed medications and report any worsening of symptoms. Orders: Orders Lipid Panel 3 Months E78.00 - Pure hypercholesterolemia, unspecified Comprehensive Met. Panel 3 Months E78.00 - Pure hypercholesterolemia, unspecified Referrals Orthopedics Referral M47.812 - Spondylosis without myelopathy or radiculopathy, cervical region Medications: New simvastatin 20 mg PO BEDTIME 30 tabs 3RF E78.00 - Pure hypercholesterolemia, unspecified Discontinued atorvastatin Discontinued Reason: Change Referral Type 10 mg PO DAILY 90 tabs 1RF E78.00 - Pure hypercholesterolemia, unspecified
--- OUTSIDE RECORDS SUMMARY | 2024-08-21 13:26 | XMS_ITS | Clinical Summary ---
Author Organization [facility] Address [address] [place] [phone] Phone Care Team Providers Care Stage Set Up Worker Name Role Phone Vania Matson MD Primary Care Provider [phone] Allergies Active Allergy Reactions Criticality Noted Date [...] overla pping sites of right female breast ([facility] V24, CMS/[facility] V28) 11/12/2016 Surgical History Surgery Date Site/Laterality Comments THYROID SURGERY PROCEDURE:THYROID SURGERY Medical History Medical History Date Comments Malignant neoplasm of overla pping sites of right female breast (CMS/HCC V24, CMS/[facility] V28) DX:Malignant neoplasm of ove rlapping sites of right female breast (HCC) Family [...] Description 09/13/2024 11:45 AM EDT Office Visit [facility] Hematology Oncology [address] [place] [address] Eric Damon MD [address] [place] [address] 12/14/2024 1:00 PM EDT Appointment [facility] at [address] [address] Health Maintenance Due Date Last [...] 12/09/2022, 12/07/2021, Additional history exists RSV Immunization Adult Patients (1 - 1-dose 75+ series) 12/12/2030 DTaP,Tdap,and [...] age to complete this topic Meningococcal B Vaccine Aged Out No l onger eligible based on patient's age to complete this topic RSV Immunization Patients Under 20 months Aged Out No longer eligible based on patient's age to complete this topic Varicella Vaccines Aged Out No longer eligible based on patient's age to complete this topic Procedures Procedure Name Priority Date/Time Associated Diagnosis Comments [facility] SCREENING DIGITAL Routine 12/14/2023 2:58 PM EDT Encounter for screening mammogram for malignant neoplasm of breast from Last 3 Months or Most Recently Relevant to Health Maintenance Results * [facility] SCREENING DIGITAL (12/14/2023 2:58 PM EDT) Anatomical Region Laterality Modality Mammography 12/14/2023 11:0 8 AM EDT Narrative 12/14/2023 2:[address] [facility] Diagnostic Imaging Department [address] [place] [address] Patient: ??GEORGI HAMILTON ?/Age/Sex: 1955 - 68 - F Unit#: ??[id number] ? Location/Status: ??SPDIMAM/REG CLI ? Mnemonic/Ordering Site: ??DIGSC/SPMAM Ordering Physician: ??ERCI DAMON MD Tip Screening Digital - 12/14/23 - 1134 Report Status:Signed EXAM: [facility] Screening Digital EXAM DATE AND TIME: 12/14/2023 11:44 AM HISTORY: ??Screening. Personal history of right breast carcinoma treated with lumpectomy in 2003 followed by radiation treatment. Prior left breast biopsy, pathology benign. Maternal cousin had breast carcinoma. COMPARISON: ??12/09/22, 12/07/21, 12/05/20 TECHNIQUE: Bilateral digital breast tomosynthesis was performed in the CC and MLO projections. Computer aided detection with [employer] 3D 3.1 was employed. TISSUE DENSITY: c. [...] by: ??BRISEIDA CRAIN MD Dic Date/Time: ??12/14/23 1457 Sign date/Time: ??12/14/23 1458 Procedure Note Briseida Crain MD - 01/25/2024 [facility] Diagnostic Imaging Department [address] [place], [place] [id number] Patient: HAMILTON,GEORGI J /Age/Sex: 1955 - 68 - F Unit#: [id number] [facility] Mnemonic/Ordering Site: [facility] Ordering Physician: ERIC DAMON MD [facility] Screening Digital - 12/14/23 - 1134 Report Status:Signed EXAM: [facility] Screening Digital EXAM DATE AND TIME: 12/14/2023 11:44 AM HISTORY: Screening. Personal history of right breast carcinoma treatedwith lumpectomy in 2003 followed by radiation treatment. Prior left breastbiopsy, pathology benign. Maternal cousin had breast carcinoma. COMPARISON: 12/09/22, 12/07/21, 12/05/20 TECHNIQUE: Bilateral digital breast tomosynthesis was performed in the CCand MLO projections. Computer aided detection with [employer] 3D 3.1was employed. TISSUE DENSITY: c. The [...] Signed by: BRISEIDA CRAIN MD Dic Date/Time: 12/14/23 1457 Sign date/Time: 12/14/23 1458 us Eric Damon MD IMG BI PROCEDURES Final Res ult from Last 3 Months or Most Recently Relevant to Health Maintenance Insurance [facility] Care Teams Stage Set Up Worker Relationship Specialty Start Date End Date Vania Matson MD [address] [place] [address] [address] [facility] [place] [address] PCP - General Internal Medicine 11/12/16
== END 2024-08-21 12:57 | disposition home or self-care (01) ==
LOC: HO.HMCH 12:18
PROVIDERS: PCP Internal Medicine; Visit Provider Internal Medicine
DX: I25.10 Atherosclerotic heart disease of native coronary artery without angina pectoris (principal); K21.9 Gastro-esophageal reflux disease without esophagitis; J43.9 Emphysema, unspecified; M47.812 Spondylosis without myelopathy or radiculopathy, cervical region

== ENCOUNTER → 2024-08-21 12:17 | Outpatient (BNVA) | payer MEDICARE, SELFPAY | PROVIDERS: PCP Internal Medicine; Visit Provider Internal Medicine | DX: I25.10 Atherosclerotic heart disease of native coronary artery without angina pectoris (principal); K21.9 Gastro-esophageal reflux disease without esophagitis; J43.9 Emphysema, unspecified; M47.812 Spondylosis without myelopathy or radiculopathy, cervical region; Z79.899 Other long term (current) drug therapy | CPT/HCPCS: 96127; 99212 ==

== ENCOUNTER 2024-09-12 14:23 | Outpatient (AMB) | payer MEDICARE, SELFPAY ==
--- OUTSIDE RECORDS SUMMARY | 2024-09-12 14:25 | XMS_ITS | Clinical Summary ---
Author Organization [facility] Address [address] [place] [address] Care Team Providers Care Cell Tuber Machine Name Role Phone Vania Matson MD Primary Care Provider [phone] Allergies Active Allergy Reactions Criticality Noted Date [...] Osteoporosis Screening (DEXA Scan) 12/12/2020 Influenza Vaccine (Season Ended) 2024 RSV Adult > 60+ Yrs or (1 - 1-dose 75+ series) 12/12/2030 Hepatitis B Vaccines Aged Out No long er eligible based on patient's age to complete this topic RSV Ped < 20 months Aged Out No longe r eligible based on patient's age to complete this topic Care Teams Cell Tuber Machine Relationship Specialty Start Date End Date Dano, Vania Padilla MD [address] [place] [address] [address] [facility] [place] [address] PCP - General Internal Medicine 11/12/16
[2024-09-12 14:36] VITALS: BP 102/58; PULSE 85; O2SAT 100; BMI 18.0
--- NOTE | 2024-09-12 14:36 | A.OFFVIS_ITS ---
Vital Signs 09/12/24 14:36 Height 5 ft 6.5 in Weight 113 lb 8.609 oz BMI 18.0 BP 102/58 L Blood Pressure Location Lt brachial Position Sitting Pulse 85 Pulse Source Pulse Oximeter Pulse Oximetry (%) 100 Oxygen Delivery Method Room Air Intake Visit Reasons: pulm nodule Allergies oxycodone [Percocet] Allergy (Unknown, Verified 09/12/24 14:38) Unknown atorvastatin Adverse Reaction (Intermediate, Verified 09/12/24 14:38) neck pain rosuvastatin Adverse Reaction (Verified 09/12/24 14:38) myalgia HPI HPI pulm nodule: Details: 68-year-old lady, former 25 pack-year smoker, quit over 15 years prior with underlying history of prior breast cancer in her 40 status post resection, chemotherapy, and XRT followed for pulmonary nodules noted on screening CT chest and COPD.? She continues to use Anoro and albuterol MDI with slowly worsening symptom control. She denies acute exacerbations. After the last office visit patient has not started on theophylline yet. She did have follow-up CT scan that showed stable findings. [facility] Medical History Migraine Dysphagia History of colon polyps Blind left eye Thyroid nodule Carotid stenosis, right Left renal stone GERD (gastroesophageal reflux disease) Degenerative disc disease, cervical Hypercholesterolemia Pericardial effusion Breast cancer Surgical History History of esophagogastroduodenoscopy (EGD) History of shoulder surgery History of tonsillectomy History of vaginal hysterectomy History of lobectomy of thyroid H/O lymph node biopsy H/O lumpectomy Family History Mother Dementia Father Lung cancer metastatic to bone Maternal Uncle FH: prostate cancer Paternal Uncle FH: prostate cancer Maternal Uncle Myocardial infarct Brother Skin cancer Primary cutaneous large T-cell lymphoma Social History Household Members: Spouse Housing: House Do you presently have visiting nurse or other home services: No Alcohol intake: never Patient Tobacco Use Status: Former Tobacco user Tobacco use type: Cigarette Years Smoked: quit 30 years old e-Cigarette/Vaping Use: Never Used Second Hand Smoke Exposure: No Advance Directives Date on File: 01/28/20 service: No Current occupational status: retired 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 Cognitive needs: No Hearing needs: No Vision needs: Yes Review of Systems Const Denies daytime sleepiness, Denies excessive sweating, Denies fatigue, Denies fever(s), Denies lethargy, Denies malaise, Denies night sweats, Denies snoring and Denies weight loss Eyes Denies blurry vision and Denies itchy eyes ENT Denies nasal congestion, Denies post nasal drip, Denies sinus pain, Denies sinus pressure and Denies other ( Thrush) Card Denies chest pain, Denies pedal edema, Denies dyspnea, Reports dyspnea on exertion, Denies orthopnea and Denies paroxysmal nocturnal dyspnea Resp Denies cough, Denies hemoptysis, Denies excessive phlegm production, Denies dyspnea, Reports dyspnea on exertion, Denies snoring and Denies wheezing GI Denies abdominal pain and Denies heartburn Musc Denies myalgias, Denies arthralgias and Denies joint swelling Skin/Breast Denies rash Neuro Denies memory loss and Denies seizure-like activity Psych Denies abnormal sleep pattern, Denies anxiety and Denies memory loss Endo Denies excessive sweating, Denies fatigue and Denies heat intolerance Enmanuel/Lymph Denies easy bruising Aller/Immun Denies itchy eyes, Denies seasonal rhinorrhea and Denies wheezing Physical Exam Vital Signs: Last Vital Signs Pulse 85 09/12/24 14:36 BP 102/58 L 09/12/24 14:36 Pulse Ox 100 09/12/24 14:36 Oxygen Delivery Method Room Air 09/12/24 14:36 BMI result Body Mass Index 18.0 Const General: no acute distress and alert Orientation/consciousness: Other orientation findings ( oriented) HEENT Head: Yes atraumatic Eyes General: appearance normal, both eyes and all related structures Sclerae: sclerae normal EOM: EOMs intact bilaterally Neck Neck: Yes supple Lymphatic: no lymphadenopathy noted Resp Effort & Inspection: normal respiratory effort and no use of accessory muscles Auscultation: clear to auscultation bilaterally Cardio Rate: regular rate Rhythm: regular rhythm Heart sounds: no gallops, no murmurs and no rubs Skin General skin exam: other ( warm) Extrem General: No clubbing, No cyanosis and No edema Assessment & Plan Assessment & Plan (1) COPD (chronic obstructive pulmonary disease): Code(s): J44.9 - Chronic obstructive pulmonary disease, unspecified Category: Medical Qualifiers: COPD type: emphysema Emphysema type: unspecified Qualified Code(s): J43.9 - Emphysema, unspecified Plan: Suboptimal control on current regimen of Anoro and albuterol MDI. Patient has not started theophylline yet. Patient has been encouraged to start theophylline. (2) Pulmonary nodules: Code(s): R91.8 - Other nonspecific abnormal finding of lung field Category: Medical Plan: Results of CT chest reviewed, stable pulmonary nodules. Coding Level of Care Code Est Pt Level 4 (88519) Diagnoses Pulmonary emphysema, unspecified emphysema type J43.9 COPD type: emphysema Emphysema type: unspecified Pulmonary nodules R91.8
== END 2024-09-12 14:58 | disposition home or self-care (01) ==
LOC: HO.HPS 14:24
PROVIDERS: PCP Internal Medicine; Visit Provider Internal Medicine Pulmonary Disease
DX: J43.9 Emphysema, unspecified (principal); R91.8 Other nonspecific abnormal finding of lung field
CPT/HCPCS: 99214

== ENCOUNTER → 2024-09-12 14:23 | Outpatient (BNVA) | payer MEDICARE, SELFPAY | PROVIDERS: PCP Internal Medicine; Visit Provider Internal Medicine Pulmonary Disease | DX: J43.9 Emphysema, unspecified (principal); R91.8 Other nonspecific abnormal finding of lung field | CPT/HCPCS: 99212 ==

== ENCOUNTER 2024-10-22 12:05 | Outpatient (REF) | payer MEDICARE, SELFPAY ==
--- OUTSIDE RECORDS SUMMARY | 2024-10-22 13:07 | XMS_ITS | Clinical Summary ---
Author Organization [facility] Address [address] [place] [address] Care Team Providers Care Skin Tanner Name Role Phone Vania Matson MD Primary Care Provider [phone] Allergies Active Allergy Reactions Criticality Noted Date [...] Immunizations Name Administration Dates Next Due Covid-19 ([employer] Dilution Required 05/29/2020,0 05/08/2020 Family History Medical [...] 84 10/05/2023 11:44 AM EDT Temperature 36.5 C (97.7 F) 10/05/2023 11:44 AM EDT Respiratory Rate - - Oxygen Saturation 100% [...] Screening (DEXA Scan) 12/12/2020 Influenza Vaccine (#1) 2024 RSV Adult > 60+ Yrs or (1 - 1-dose 75+ series) 12/12/2030 Hepatitis B Vaccines Aged Out No long er eligible based on patient's age to complete this topic RSV Ped < 20 months Aged Out No longe r eligible based on patient's age to complete this topic Care Teams Skin Tanner Relationship Specialty Start Date End Date Po, Vania Padilla MD [address] [place] [address] Dr [address] [facility] [place] [address] PCP - General Internal Medicine 11/12/16
--- OUTSIDE RECORDS SUMMARY | 2024-10-22 13:07 | XMS_ITS | Patient Health Record ---
[facility] Address [address] [place] [address] [place] [phone] Care Team Providers Care Drum Builder Name Role Phone Kirk COHEN, Xiang Primary Care Provider Juan Santoro Unavailable [phone] Allergies Allergen (clinical drug ingredient) Drug/Non Drug Allergy documented on EMR Reaction Allergy Type Onset Date Status codeine Codeine sick Drug Allergy Active Reason For Referral No Information Medications Medication SIG (Take, Route, Fr equency, Duration) Notes Start Date End Date Status Topiramate 25 MG 1 tablet at bedtime Orally Once a day Active Naproxen 500 MG 1 tablet as needed O rally every 12 hrs Active Problems Problem Type SNOMED Code ICD Code Onset Dates Problem Status W/U Status Risk Notes Problem Hammer toe (853048651) Hammer toe (735.4) Active confirmed Problem Foot ulcer (56945653) Ulcer of Other Part of Foot (707.15) Active confirmed Plan Of Treatment Pending Test Test Name Order Date 96552- Debride <25 sq cm 10/22/2013 Insurance Providers Payer Name Payer Address Payer Phone Subscriber Number Group Number Insured Name Patient Relationship to Insured Coverage Start Date Coverage End Date [facility] [address] [place] [address] [phone] [id number] Chantel Hamilton Self - patient is the insured Medical (General) History Medical History History ICD Code Cancer Headaches Surgical History Surgery Date(Month/Year) lumpectomy thyroidectomy
--- OUTSIDE RECORDS SUMMARY | 2024-10-22 13:07 | XMS_ITS | Clinical Summary ---
Author Organization [facility] Address [address] [place] [phone] Phone Care Team Providers Care Senior Air Director Name Role Phone Vania Matson MD Primary Care Provider [phone] Allergies Active Allergy Reactions Criticality Noted Date [...] Active simvastatin (ZOCOR) 5 mg tablet Take 4 tablets (20 mg total) by mouth at bedtime. Take 1 tablet (5 mg total) by [...] (FML) 0.1 % ophthalmic suspension 03/28/2024 Active albuterol HFA (PROAIR HFA ; PROVENTIL HFA ; VENTOLIN HFA) 90 mcg/actuation inhaler Inhale 2 puffs by mouth every 6 (six) hours if needed for wheezing. Active cyclobenzaprine (FLEXERIL) 10 mg tablet Take 1 tablet (10 mg total) by mouth 3 (three) times a day if needed for muscle spasms. Active hydrOXYzine HCL (ATARAX) 25 mg tablet Take by mouth. Active meloxicam (MOBIC) 15 mg tablet Take 1 tablet (15 mg total) by mouth 1 (one) time each day. Active methylcellulose oral powder Take by mouth 1 (one) time each day. Active theophylline (OSMAN-24) 300 mg 24 hr capsule Take 1 capsule (300 mg total) by mouth 1 (one) time each day. Do not crush or chew. Active umeclidinium-vi lanteroL (Anoro Ellipta) 62.5-25 mcg/actuation inhaler Inhale 1 puff by mouth 1 (one) time each day. Active Active Problems Problem Noted Date Diagnosed Date Malignant neoplasm of overla pping sites of right female breast (CMS/[facility] V24, CMS/[facility] V28) 11/12/2016 Encounters Date Type Department Care Team Description 09/13/2024 11:45 AM EDT Office Visit [facility] Hematology Oncology [address] [place] [address] Eric Damon MD Malignant neoplasm of overlapping sites of right breast in female, estrogen receptor positive (CMS/HCC V24, CMS/[facility] V28) (Primary Dx) from Last 3 Months Surgical History Surgery Date Site/Laterality Comments THYROID SURGERY PROCEDURE:THYROID SURGERY Medical History Medical History Date Comments Malignant neoplasm of overla pping sites of right female breast (CMS/HCC V24, CMS/HCC V28) DX:Malignant neoplasm of ove rlapping sites [...] 79 04/06/2024 12:03 PM EST Temperature 37.1 C (98.7 F) 04/06/2024 12:03 PM EST Respiratory Rate - - Oxygen Saturation 100% 04/06/2024 12:03 PM EST Inhaled Oxygen Concentration - - Weight 50.8 kg (112 lb) 09/13/2024 11:53 AM EDT Height 167.6 cm (5' 6 ) 10/05/2023 11:44 AM EDT Body Mass Index 18.08 10/05/2023 11:44 AM EDT Plan of Treatment Upcoming Encounters Date Type Department Care Team (Late st Contact Info) Description 12/14/2024 1:00 PM EDT [facility]oint[facility] [address] [phone] 03/15/2025 11:45 AM EST Office Visit [facility] Hematology Oncology [address] [place] [phone] Eric Damon MD [address] [place] [phone] Health Maintenance Due Date Last Done Comments Zoster Vaccines (2 of 2) 02/19/2019 019, 01/23/2016, 08/19/2015 Cholesterol Screening (Lipid Panel) 03/19/2022 Colorectal Cancer Screening: Colonoscopy 03/19/2022 Depression Screening 03/19/2022 Falls Risk Assessment 03/19/2022 Hepatitis C Screening 03/19/2022 Osteoporosis Screening (Bone Density Screening) 03/19/2022 Social Influencers of Health Screening 03/19/2022 COVID-19 Vaccine ( - season) 2023 01/16/2021, 05/29/2020, 05/08/2020 Influenza Vaccine (#1) 2024 , 02/07/2023, 01/31/2022, Additional history exists Breast Cancer Screening 2025 12/14/19 24, 12/09/2022, 12/07/2021, Additional history exists RSV Immunization Adult Patients (1 - 1-dose 75+ series) 12/12/2030 DTaP,Tdap,and Td Vaccines (2 - Td or Tdap) 10/17/2033 10/18/2023 Pneumococcal Vaccine: 50+ Years Completed 12/24/2021, 12/26/2020 HIB Vaccines Aged Out No longer eligi [...] Procedure Name Priority Date/Time Associated Diagnosis Comments ANA SCREENING DIGITAL Routine 12/14/2023 2:58 PM EDT Encounter for screening mammogram for malignant neoplasm of breast from Last 3 Months or Most Recently Relevant to Health Maintenance Results * ANA SCREENING DIGITAL (12/14/2023 2:58 PM EDT) Anatomical Region Laterality Modality Mammography 12/14/2023 11:0 8 AM EDT Narrative 12/14/2023 2:58 PM EDT [facility] Diagnostic Imaging Department [address] [place] [id number] Patient: GEORGI HAMILTON Mery LouB./Age/Sex: 1955 - 68 - F Unit#: [id number] Location/Status: SPDIMAM/REG CLI Mnemonic/Ordering Site: [facility] Ordering Physician: ERIC DAMON MD [facility] Screening Digital - 12/14/23 - 1134 Report Status:Signed EXAM: [facility] Screening Digital EXAM DATE AND TIME: 12/14/2023 11:44 AM HISTORY: Screening. Personal history of right breast carcinoma treated with lumpectomy in 2003 followed by radiation treatment. Prior left breast biopsy, pathology benign. Maternal cousin had breast carcinoma. COMPARISON: 12/09/22, 12/07/21, 12/05/20 TECHNIQUE: Bilateral digital breast tomosynthesis was performed in the CC and MLO projections. Computer aided detection with [employer] 3D 3.1 was employed. TISSUE DENSITY: c. [...] including lumpectomy changes in the right breast. No evidence of [...] MD Dic Date/Time: 12/14/231456 Sign date/Time: 12/14/231457 Procedure Note Briseida Crain MD - 01/25/2024 [facility] Diagnostic Imaging Department [address] [place] [address] Patient: GOMEZ HAMILTONRODRIGUE OliverosO.B./Age/Sex: 1955 - 68 - F Unit#: [id number] [facility] Mnemonic/Ordering Site: [facility] Ordering Physician: ERIC DAMON MD [facility] Screening Digital - 12/14/23 - 1134 Report Status:Signed EXAM: [facility] Screening Digital EXAM DATE AND TIME: 12/14/2023 11:44 AM HISTORY: Screening. Personal history of right breast carcinoma treatedwith lumpectomy in 2003 followed by radiation treatment. Prior left breastbiopsy, pathology benign. Maternal cousin had breast carcinoma. COMPARISON: 12/09/22, 12/07/21, 12/05/20 TECHNIQUE: Bilateral digital breast tomosynthesis was performed in the CCand MLO projections. Computer aided detection with [employer] 3D 3.1was employed. TISSUE DENSITY: c. The [...] CRAIN MD Dic Date/Time: 12/14/231456 Sign date/Time: 12/14/23 145 Eric Damon MD IMG BI PROCEDURES Final Res ult from Last 3 Months or Most Recently Relevant to Health Maintenance Insurance [facility] Care Teams Senior Air Director Relationship Specialty Start Date End Date Vania Matson MD [address] [place] [address] [address] [facility] [place] [address] PCP - General Internal Medicine 11/12/16
[2024-10-22 14:29] LABS: Alanine Aminotransferase 14 U/L (0-31); Albumin Level 4.8 g/dL (3.5-5.0); Alkaline Phosphatase 64 U/L (39-117); Anion Gap 11 (12-20); Aspartate Amino Transferase 16 U/L (5-31); Blood Urea Nitrogen 17 mg/dL (9-16); Calcium 9.9 mg/dL (8.4-10.2); Carbon Dioxide 23 mmol/L (22-29); Chloride 113 mmol/L (96-108); Cholesterol 200 mg/dL (<200); Estimated Glomerular Filt Rate 52; HDL Cholesterol 61 mg/dL (>40); Potassium 3.8 mmol/L (3.3-5.1); Sodium 143 mmol/L (135-145); Total Protein 6.8 g/dL (6.5-8.0); Triglycerides 111 mg/dL (<150)
== END 2024-10-22 12:06 | disposition home or self-care (01) ==
LOC: HO.HMGCLDS 12:05
PROVIDERS: PCP Internal Medicine; Visit Provider Internal Medicine
DX: E78.00 Pure hypercholesterolemia, unspecified (principal)
CPT/HCPCS: 36415; 80053; 80061

== ENCOUNTER 2024-10-25 12:23 | Outpatient (REF) | payer MEDICARE, SELFPAY ==
--- NOTE | ~2024-10-25 | XR_ITS ---
EXAMINATION: XR CERVICAL SPINE CLINICAL INFORMATION: M47.812 - Spondylosis without myelopathy or radiculopathy, cervical region COMPARISON: No prior. Correlation made with MR cervical 01/26/2022. TECHNIQUE: 3 views of the cervical spine were obtained. FINDINGS: There is a mild right convex scoliosis. There is a normal lordosis. There is no fracture, compression deformity, or suspicious bone lesion. There is a 2 mm degenerative appearing retrolisthesis of C4 on C5. Alignment is otherwise anatomic. Craniocervical junction and C1-2 articulation appear intact and aligned. Mild disc space degeneration present C3-4, and C4-5. Remainder of the intervertebral discs appear preserved. Normal facet alignment bilaterally. There are mild multilevel hypertrophic degenerative facet changes bilaterally. There is no prevertebral soft tissue abnormality. Lung apices are clear. XR/XR cervical spine 2V IMPRESSION: 1. No acute abnormality of the cervical spine. 2. Mild spondylosis most notable C3-4 and C4-5. 3. Mild right convex scoliosis. Electronically signed by: Je Shafer MD 10/25/2024 02:04 PM EDT
== END 2024-10-25 12:24 | disposition home or self-care (01) ==
LOC: HO.XRAY 12:23
PROVIDERS: PCP Internal Medicine; Visit Provider Internal Medicine
DX: Z00.00 Encounter for general adult medical examination without abnormal findings (principal); R91.8 Other nonspecific abnormal finding of lung field; J43.9 Emphysema, unspecified; M50.30 Other cervical disc degeneration, unspecified cervical region; K21.9 Gastro-esophageal reflux disease without esophagitis; E78.00 Pure hypercholesterolemia, unspecified; I25.10 Atherosclerotic heart disease of native coronary artery without angina pectoris; M47.812 Spondylosis without myelopathy or radiculopathy, cervical region; Z85.3 Personal history of malignant neoplasm of breast; Z13.30 Encounter for screening examination for mental health and behavioral disorders, unspecified
CPT/HCPCS: 72040; 96127; 99397

== ENCOUNTER 2024-10-25 12:23 | Outpatient (AMB) | payer MEDICARE, SELFPAY ==
[2024-10-25 12:33] VITALS: BP 126/62; PULSE 84; TEMP 36.1; O2SAT 99; BMI 17.7
--- NOTE | 2024-10-25 12:33 | A.OFFPC_ITS ---
Vital Signs 10/25/24 12:33 Height 5 ft 6.5 in Weight 111 lb 6 oz BMI 17.7 BP 126/62 Blood Pressure Location Lt brachial Position Sitting Pulse 84 Pulse Source Pulse Oximeter Temp 97.0 F Temp Source Temporal Artery Scan Pulse Oximetry (%) 99 Oxygen Delivery Method Room Air Intake Visit Reasons: Annual exam Allergies oxycodone (Percocet) Allergy (Unknown, Verified 10/25/24 12:36) Unknown atorvastatin Adverse Reaction (Intermediate, Verified 10/25/24 12:36) neck pain rosuvastatin Adverse Reaction (Verified 10/25/24 12:36) myalgia Medication List - Last Reconciled 10/25/24 by Vania Matson MD acetaminophen (Tylenol) 325 mg PO QID PRN albuterol sulfate 90 mcg/actuation (ProAir HFA) 2 puffs inhalation Q6H PRN cyanocobalamin (vitamin B-12) 1,000 mcg PO DAILY cyclobenzaprine 10 mg PO TID docusate sodium (Colace) 200 mg (2 x 100 mg) PO BEDTIME hydrocortisone 2.5% (Proctozone-HC) 1 appl [place] BID PRN meloxicam 15 mg PO DAILY methylcellulose (laxative) (Citrucel) 500 mg PO TID omeprazole 40 mg PO BID ondansetron HCl 4 mg PO DAILY PRN simvastatin 20 mg PO BEDTIME sumatriptan succinate 50 mg PO .QD PRN 90 days theophylline ER 300 mg PO DAILY topiramate (Topamax) 400 mg (4 x 100 mg) PO BEDTIME 90 days triamcinolone acetonide 0.5% 1 appl topical BID 14 days umeclidinium-vilanterol 62.5-25 mcg/actuation (Anoro Ellipta) 1 inh inhalation DAILY Tobacco use date assessed: 10/25/24 Fall risk assessment: No Falls in past year Last assessed Fall Risk: 10/25/24 Dental Screening Dental Screen Date: 10/25/24 Did you have a dental visit in the last 12 months?: No Did you have a dental problem in the last 6 months where you did not have access to dental care?: No Was dental information given to patient?: Patient has dentist HPI Annual exam HPI Details 68-year-old female underweight with a hi story of COPD hypercholesterolemia cervical degenerative disc disease GERD history of gastric ulcer history of breast cancer 2003 with right breast lumpectomy atherosclerotic heart disease coming in for physical exam last seen in August 2024. Patient's mammogram up-to-date December 2023 colonoscopy last done in December 2020. Patient follows up with Hematology-Oncology seen in 09/13/2024 completed adjuvant chemotherapy 5 years patient complains of dyspnea on exertion 2013. Chronic constipation senna but had diarrhea. Diagnosis of irritable bowel syndrome most likely. Chest CT in 2013 showed right lower lobe pulmonary nodule 3 mm. Two thousand fifteen follow-up stable. Chest CT in [address] in 2019 shows 2 x 4 mm tubular endobronchial lesion possibly mucus plugging follow-up stable. Bone scan 2018-pulmonary notes September 12 COPD suboptimal control Anoro and albuterol encouraged to start . Patient's last blood work was in January 2024 w ith normal blood count mild leukopenia theophylline.. October 2024 electrolytes are normal with renal function creatinine of 1.05 blood sugar is normal liver function is good cholesterol LDL is 117. occ dizzy on chnages in position. [facility] Medical History Migraine Dysphagia History of colon polyps Blind left eye Thyroid nodule Carotid stenosis, right Left renal stone GERD (gastroesophageal reflux disease) Degenerative disc disease, cervical Hypercholesterolemia Pericardial effusion Breast cancer Surgical History History of esophagogastroduodenoscopy (EGD) History of shoulder surgery History of tonsillectomy History of vaginal hysterectomy History of lobectomy of thyroid H/O lymph node biopsy H/O lumpectomy Family History Mother Dementia Father Lung cancer metastatic to bone Maternal Uncle FH: prostate cancer Paternal Uncle FH: prostate cancer Maternal Uncle Myocardial infarct Brother Skin cancer Primary cutaneous large T-cell lymphoma Social History Household Members: Spouse Housing: House Do you presently have visiting nurse or other home services: No Alcohol intake: never Patient Tobacco Use Status: Former Tobacco user Tobacco use type: Cigarette Years Smoked: quit 30 years old e-Cigarette/Vaping Use: Never Used Second Hand Smoke Exposure: No Advance Directives Date on File: 01/28/20 service: No Current occupational status: retired 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 1. Little interest or pleasure in doing things: nearly every day 2. Feeling down, depressed, or hopeless: not at all 3. Trouble falling or staying asleep, or sleeping too much: not at all 4. Feeling tired or having little energy: not at all 5. Poor appetite or overeating: not at all 6. Feeling bad about yourself - or that you are a failure or have let yourself or your family down: not at all 7. Trouble concentrating on things, such as reading the newspaper or watching te levision: not at all 8. Moving or speaking so slowly that other people could have noticed. Or the opposite - being so fidgety or restless that you have been moving around a lot more than usual: not at all 9. Thoughts that you would be better off or of hurting yourself in some way: not at all Total score: 3 Source: Developed by Drs. Keith Mast, Deanna Rodriguez, Tk Reddy and colleagues, with an educational kelle from [address] Thrive Questionnaire Date Thrive assessed: 08/14/24 I am a: Patient What is your living situation today?: I have a steady place to live Within the past 12 months, did the food you bought not last and you didn't have the money to get more?: Never true Within the past 12 months, did you worry whether your food would run out before you got money to buy more?: Never true Do you have trouble paying for medicines?: No Do you have trouble getting transportation to medical appointments?: No Do you have trouble paying your heating and electricity bill?: No Do you have trouble taking care of your child, family member or friend?: No Do you have trouble with day-to-day activities such as bathing, preparing meals, shopping, managing finances, etc.?: No Are you currently unemployed and looking for a job?: No Are you interested in more education?: No Please select the resources that you would like help with: None Currently or been in a relationship where the following occur: No concerns reported THRIVE Score: 0 AUDIT C Alcohol Use Questionnaire (AUDIT-C) 1. How often do you have a drink containing alcohol?: Never 3. How often do you have six or more drinks on one occasion?: Never Total Score: 0 SANGITA-7 AMB Questionnaire SANGITA-7 Date SANGITA - 7 assessed: 06/14/24 Feeling nervous, anxious, or on edge: 0 = Not at all Not being able to stop or control worryin = Not at all Worrying too much about different things: 0 = Not at all Trouble relaxin = Not at all Being so restless that it is hard to sit still: 0 = Not at all Becoming easily annoyed or irritable: 0 = Not at all Feeling afraid as if something awful might happen: 0 = Not at all Total SANGITA-7 score (0-4 normal; 5-9 mild; 10-14 moderate; 15-21 severe): 0 Source: Developed by Drs. Keith Mast, Deanna Rodriguez, Tk Reddy and colleagues, with an educational kelle from [address] Review of Systems Const Denies poor appetite and Denies weakness Eyes Denies no additional complaints ENT Reports Normal hearing present, Denies dizziness, Denies nasal congestion, Denies tinnitus and Denies sore throat Card Denies chest pain, Denies syncope, Denies rapid heart rate and Denies dyspnea Resp Denies cough and Denies dyspnea GI Denies change in stool character, Reports constipation, Denies diarrhea, Denies nausea and Denies vomiting Denies urinary frequency, Denies difficulty voiding and Denies dysuria Neuro Reports Normal hearing present, Denies confusion, Denies dizziness, Denies syncope and Denies weakness Psych Denies confusion Physical exam (Primary Care) Vital Signs: Last Vital Signs Temp 97.0 F 10/25/24 12:33 Pulse 84 10/25/24 12:33 BP 126/62 10/25/24 12:33 Pulse Ox 99 10/25/24 12:33 Oxygen Delivery Method Room Air 10/25/24 12:33 BMI result Body Mass Index 17.7 Tobacco/Smoking Status: Tobacco use Status Tobacco use date assessed 10/25/24 10/25/24 12:37 Patient Tobacco Use Status Former Tobacco user 10/25/24 12:37 Tobacco use type Cigarette 10/25/24 12:37 e-Cigarette/Vaping Use Never Used 10/25/24 12:37 PHQ-9: PHQ-9 Score PHQ-9: Total score 3 10/25/24 12:57 Thrive Assessment: Date of Thrive Assessment Date Thrive assessed 08/14/24 10/25/24 12:37 Currently or been in a relationship where the following occur: No concerns reported Const General: No confusion Orientation/consciousness: No confusion HENMT Head: Yes normocephalic Ears: external ears normal and TM's normal bilaterally Face and sinus: Yes normal facial exam Mouth: moist mucous membranes Throat: Yes tonsils normal Eyes Conjunctivae: conjunctivae normal Pupils: Equal, round and reactive pupils present and Pupil accommodation reflex normal Direct Ophthalmoscopy: normal light reflex Neck Neck: No lymphadenopathy Thyroid: Thyroid normal Chest Chest palpation & inspection: normal inspection of the chest Resp Effort & Inspection: normal respiratory effort and no audible wheezes Auscultation: clear to auscultation bilaterally, no crackles, no wheezes and lung sounds not diminished Cardio Rate: regular rate Rhythm: regular rhythm Peripheral pulses: radial pulses present and dorsalis pedis present GI Palpation (GI): no masses Auscultation: normal bowel sounds and normoactive bowel sounds Rectal Exam - Female: deferred Skin General skin exam: no rashes or lesions noted Rashes: no rashes Neuro General: No confusion Cranial nerves: Yes Equal, round and reactive pupils present and Yes Normal hearing present Cognition (Neuro): normal cognition Gait exam (Neuro): Normal gait present Motor exam (neuro): 5/5 motor strength present throughout Deep tendon reflexes (DTR's): Right brachioradialis reflex intensity grade: 2+, Left brachioradialis reflex intensity grade: 2+, Right patellar reflex intensity grade: 2+ and Left patellar reflex intensity grade: 2+ Extrem General: No edema Coding Level of Care Code Est Pt Prev Care >65y(77949) Diagnoses Annual physical exam Z00.00 Pulmonary nodules R91.8 Pulmonary emphysema, unspecified emphysema type J43.9 COPD type: emphysema Emphysema type: unspecified Degenerative disc disease, cervical M50.30 Infiltrating ductal carcinoma C50.919 Gastroesophageal reflux disease without esophagitis K21.9 Esophagitis presence: without esophagitis Hypercholesterolemia E78.00 Atherosclerotic cardiovascular disease I25.10 Assessment & Plan Assessment & Plan (1) Annual physical exam: Code(s): Z00.00 - Encounter for general adult medical examination without abnormal findings Category: Medical Plan: Patient is advised to eat healthy, keep well hydrated, keep active and have adequate sleep. (2) Pulmonary nodules: Code(s): R91.8 - Other nonspecific abnormal finding of lung field Category: Medical Plan: This continued to be followed up with chest CT and patient also follows up with Pulmonary (3) COPD (chronic obstructive pulmonary disease): Code(s): J44.9 - Chronic obstructive pulmonary disease, unspecified Category: Medical Qualifiers: COPD type: emphysema Emphysema type: unspecified Qualified Code(s): J43.9 - Emphysema, unspecified Plan: has been on albuterol inhaler and Anoro and has been recommended to take theophylline (4) Degenerative disc disease, cervical: Comment: MRI 2021 Code(s): M50.30 - Other cervical disc degeneration, unspecified cervical region Category: Medical Plan: Keep active (5) Infiltrating ductal carcinoma: Comment: 2003 right breast lumpectomy and radiation and tamoxifen Code(s): C50.919 - Malignant neoplasm of unspecified site of unspecified female breast Category: Medical Plan: Patient is being followed up by the surgeon as well as the Hematology-Oncology continue with up-to-date mammograms (6) GERD (gastroesophageal reflux disease): Comment: She will give trial to pantoprazole daily and hope she has better coverage Reflux precautions reviewed Code(s): K21.9 - Gastro-esophageal reflux disease without esophagitis Category: Medical Qualifiers: Esophagitis presence: without esophagitis Qualified Code(s): K21.9 - Gastro-esophageal reflux disease without esophagitis Plan: Avoid the foods that causes that usually spicy foods, tomato products, juices, coffee, soda and foods that your sensitive to. After eating do not lie down, allow 3-4 hours before in lie down. And keep the head of bed above 30 degrees to avoid the acid from going up. (7) Hypercholesterolemia: Code(s): E78.00 - Pure hypercholesterolemia, unspecified Category: Medical Plan: Avoid fried foods, chicken skin, eggs, butter margarine, pastries and meat. Be it pork or beef they have a lot of cholesterol with atherosclerotic cardiovascular disease patient is recommended have an LDL of less than 70 but patient is statin intolerant. (8) Atherosclerotic cardiovascular disease: Code(s): I25.10 - Atherosclerotic heart disease of [place] coronary artery without angina pectoris Category: Medical Plan: Control the cholesterol, weight, blood pressure, patient is advised to be on aspirin 81 mg once a day Orders: Orders XR cervical spine 2V Today M47.812 - Spondylosis without myelopathy or radiculopathy, cervical region
--- OUTSIDE RECORDS SUMMARY | 2024-10-25 12:54 | XMS_ITS | Clinical Summary ---
Author Organization [facility] Address [address] [place] [phone] Phone Care Team Providers Care Balloon Design Printer Name Role Phone Vania Matson MD Primary Care Provider [phone] Allergies Active Allergy Reactions Criticality Noted Date [...] overla pping sites of right female breast (CMS/[facility] V24, CMS/[facility] V28) 11/12/2016 Encounters Date Type Department Care Team Description 09/13/2024 11:45 AM EDT Office Visit [facility] Hematology Oncology [address] [place] [address] Eric Damon MD Malignant neoplasm of overlapping sites of right breast in female, estrogen receptor positive (CMS/HCC V24, CMS/[facility] V28) (Primary Dx) from Last 3 Months [...] PM EDT [facility]ointment [facility] [address] [phone] 03/15/2025 11:45 AM EST Office Visit [facility] Hematology Oncology [address] [place] [phone] Eric Damon MD [address] [place] [phone] Health Maintenance Due Date Last Done Comments [...] AM EDT Narrative 12/14/2023 2:58 PM EDT [facility] Diagnostic Imaging Department [address] [place] [id number] Patient: GEORGI HAMILTON Mery LouB./Age/Sex: 1955 - 68 - F Unit#: [id number] Location/Status: SPDIMAM/REG CLI Mnemonic/Ordering Site: [facility] Ordering Physician: ERIC DAMON MD [facility] Screening Digital - 12/14/23 - 1134 Report Status:Signed EXAM: [facility] Screening Digital EXAM DATE AND TIME: 12/14/2023 11:44 AM HISTORY: Screening. Personal history of right breast carcinoma treated with lumpectomy in 2003 followed by radiation treatment. Prior left breast biopsy, pathology benign. Maternal cousin had breast carcinoma. COMPARISON: 12/09/22, 12/07/21, 12/05/20 TECHNIQUE: Bilateral digital breast tomosynthesis was performed in the CC and MLO projections. Computer aided detection with [employer] 3D 3.1 was employed. TISSUE DENSITY: c. [...] Procedure Note Briseida Crain MD - 01/25/2024 [facility] Diagnostic Imaging Department [address] [place] [address] Patient: GOMEZ HAMILTONRODRIGUE OliverosO.B./Age/Sex: 1955 - 68 - F Unit#: [id number] [facility]ing Site: [facility] Ordering Physician: ERIC DAMON MD [facility] Screening Digital - 12/14/23 - 1134 Report Status:Signed EXAM: [facility] Screening Digital EXAM DATE AND TIME: 12/14/2023 11:44 AM HISTORY: Screening. Personal history of right breast carcinoma treatedwith lumpectomy in 2003 followed by radiation treatment. Prior left breastbiopsy, pathology benign. Maternal cousin had breast carcinoma. COMPARISON: 12/09/22, 12/07/21, 12/05/20 TECHNIQUE: Bilateral digital breast tomosynthesis was performed in the CCand MLO projections. Computer aided detection with [employer] 3D 3.1was employed. TISSUE DENSITY: c. The [...] Most Recently Relevant to Health Maintenance Insurance [facility] Care Teams Balloon Design Printer Relationship Specialty Start Date End Date Vania Matson MD [address] [place] [address] [address] [facility] [place] [address] PCP - General Internal Medicine 11/12/16
--- OUTSIDE RECORDS SUMMARY | 2024-10-25 12:54 | XMS_ITS | Clinical Summary ---
Author Organization [facility] Address [address] [place] [address] Care Team Providers Care Subsorter Name Role Phone Vania Matson MD Primary Care Provider [phone] Allergies Active Allergy Reactions Criticality Noted Date [...] Immunizations Name Administration Dates Next Due Covid-19 (ibeatyou) Dilution Required 05/29/2020,0 05/08/2020 Family History Medical [...] age to complete this topic Care Teams Subsorter Relationship Specialty Start Date End Date Po, Vania Padilla MD [address] [place] [address] [address] [facility] [place] [address] PCP - General Internal Medicine 11/12/16
--- OUTSIDE RECORDS SUMMARY | 2024-10-25 12:54 | XMS_ITS | Patient Health Record ---
Author Organization [facility] Address [address] [place] [address] [place] [address] Care Team Providers Care Ripsawyer Name Role Phone Kirk COHEN, Xiang Primary Care Provider Juan Santoro Unavailable [phone] Allergies Allergen (clinical drug ingredient) Drug/Non Drug [...] W/U Status Risk Notes Problem Hammer toe ([id number]) Hammer toe (735.4) Active confirmed Problem Ulcer of Other Part of Foot (707.15) Active confirmed Plan Of Treatment Pending Test Test Name Order Date [id number]- Debride <25 sq cm 10/22/2013 Insurance Providers Payer Name Payer Address Payer Phone Subscriber Number Group Number Insured Name Patient Relationship to Insured Coverage Start Date Coverage End Date [facility] [address] [place] [address] [id number] Chantel Hamilton Self - patient is the insured Medical (General) History Medical History History ICD Code Cancer Headaches Surgical History Surgery Date(Month/Year) lumpectomy thyroidectomy
== END 2024-10-25 13:19 | disposition home or self-care (01) ==
LOC: HO.HMCH 12:24
PROVIDERS: PCP Internal Medicine; Visit Provider Internal Medicine
DX: Z00.00 Encounter for general adult medical examination without abnormal findings (principal); J43.9 Emphysema, unspecified; C50.919 Malignant neoplasm of unspecified site of unspecified female breast; R91.8 Other nonspecific abnormal finding of lung field; M50.30 Other cervical disc degeneration, unspecified cervical region; K21.9 Gastro-esophageal reflux disease without esophagitis; E78.00 Pure hypercholesterolemia, unspecified; I25.10 Atherosclerotic heart disease of native coronary artery without angina pectoris

== ENCOUNTER → 2024-10-25 13:30 | Outpatient (BNV) | payer MEDICARE, SELFPAY | PROVIDERS: PCP Internal Medicine; Visit Provider Radiology Diagnostic Radiology | DX: M47.812 Spondylosis without myelopathy or radiculopathy, cervical region (principal) | CPT/HCPCS: 72040 ==

== ENCOUNTER 2024-11-29 10:15 | Outpatient (AMB) | payer MEDICARE, SELFPAY ==
--- NOTE | 2024-11-29 10:20 | MHC.OFFVIS ---
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 Pt states that Right Leg is worse than Left LE and gets discoloration. Panel Instrument Repairer Required: No Accompanied by: Self / Same As Patient Allergies oxycodone (Percocet) Allergy (Unknown, Verified 11/29/24 10:23) Unknown atorvastatin Adverse Reaction (Intermediate, Verified 11/29/24 10:23) neck pain rosuvastatin Adverse Reaction (Verified 11/29/24 10:23) myalgia HPI HPI TELEPHONE SOLICITOR SUPERVISOR/PCP referral for localized edema: Details: The patient is a 68-year-old female presenting with lower extremity swelling. She reports that her right leg swells more than the left, and this has been a persistent issue. Additionally, she experiences digital cyanosis, where her fingers turn a dark purple color and become numb and hard, occurring intermittently. The patient has a history of breast cancer on the right side, treated over 20 years ago with a sentinel lymph node biopsy performed by Dr. Sutton done at [facility] back in 2003. She occasionally experiences swelling in her right arm, which may be related to her previous surgery and lymph node removal. She denies smoking and diabetes but reports a family history of heart problems on her mother's side. The patient also mentions a history of neuropathy in her feet In addition she notes swelling of the lower extremities. It is noted more so in right leg. Patient denies any previous venous surgery or injections. Patient denies any history of DVT/ PE. Patient denies any history of phlebitis. Trial of compression includes - [id number] They now present for vascular evaluation regarding their varicose veins. [facility] Medical History Migraine Dysphagia History of colon polyps Blind left eye Thyroid nodule Carotid stenosis, right Left renal stone GERD (gastroesophageal reflux disease) Degenerative disc disease, cervical Hypercholesterolemia Pericardial effusion Breast cancer Surgical History History of esophagogastroduodenoscopy (EGD) History of shoulder surgery History of tonsillectomy History of vaginal hysterectomy History of lobectomy of thyroid H/O lymph node biopsy H/O lumpectomy Family History Mother Dementia Father Lung cancer metastatic to bone Maternal Uncle FH: prostate cancer Paternal Uncle FH: prostate cancer Maternal Uncle Myocardial infarct Brother Skin cancer Primary cutaneous large T-cell lymphoma Social History Household Members: Spouse Housing: House Do you presently have visiting nurse or other home services: No Alcohol intake: never Patient Tobacco Use Status: Former Tobacco user Tobacco use type: Cigarette Years Smoked: quit 30 years old e-Cigarette/Vaping Use: Never Used Second Hand Smoke Exposure: No Advance Directives Date on File: 01/28/20 service: No Current occupational status: retired 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 Cognitive needs: No Hearing needs: No Vision needs: Yes Review of Systems Const All systems reviewed & are unremarkable except as noted in HPI and below Reports no additional complaints ENT Reports Normal hearing present Card Denies chest pain, Denies chest pain at rest, Denies chest pain with activity and Denies pedal edema Resp Denies cough GI Denies abdominal pain Musc Denies abnormal gait, Denies muscle cramps and Denies radiating pain into limb Skin/Breast Denies skin ulcer and Denies wounds Neuro Reports Normal hearing present and Denies abnormal gait Psych Reports no additional complaints Physical Exam Vital Signs: BMI result Body Mass Index 17.6 Const General: cooperative, healthy appearing and comfortable Orientation/consciousness: oriented to person, oriented to place and oriented to time HEENT Head: Yes normal to inspection Neck Neck: Yes normal visual inspection Carotids: no bruits Chest Chest palpation & inspection: normal inspection of the chest Resp Effort & Inspection: normal respiratory effort and able to speak in complete sentences Auscultation: clear to auscultation bilaterally, no crackles, no rales, no rhonchi and no wheezes Cardio Rate: regular rate Rhythm: regular rhythm Heart sounds: S1 normal heart sound present and S2 normal heart sound present Bruits: no carotid bruits Peripheral pulses: Peripheral pulses 2+ throughout GI Inspection: Yes normal to inspection Skin Wounds: no wounds Hair: normal Neuro General: oriented to person, oriented to place and oriented to time Cranial nerves: Yes CN's II-XII intact bilaterally and Yes Normal hearing present Cognition (Neuro): normal cognition Motor exam (neuro): 5/5 motor strength present throughout Extrem Other: venous exam: +1 edema General: No clubbing, No cyanosis and Yes edema Psych Appearance: grossly normal Mental Status: mental status grossly normal Speech and movement: Normal speech and movement present Assessment & Plan Assessment & Plan (1) Varicose veins of right lower extremity with inflammation: Code(s): I83.11 - Varicose veins of right lower extremity with inflammation Category: Medical Plan: In short, the patient has evidence of venous insufficiency. I have discussed the pathophysiology with the patient. In addition I have provided informational material regarding venous disease to the patient. We have discussed conservative measures including compression, elevation, and exercise. I have also provided a handout regarding appropriate use of compression stockings and where to purchase good compression stockings as well. I have taken the liberty of ordering venous insufficiency testing with the patient. They will follow up with me after testing. The patient had an opportunity to ask questions regarding the treatment plan. All questions were answered. Imaging studies, laboratory studies and physical exam results were discussed and reviewed in detail. No major barriers to understanding were identified. The patient expressed understanding and agreement with the above treatment plan. The patient is aware they should contact our office by phone for worsening of the current condition or the appearance of new symptoms. Thank you for allowing me to participate in the vascular care of this patient. If you have any questions or concerns regarding the treatment for the above condition please do not hesitate to contact me. The office telephone contact is [phone]. This note is constructed using voice recognition software. While every effort has been made to ensure accuracy, drilling engineer errors may have been included. Thank you for allowing me to participate in the care of your patient. Yours sincerely, Luis Fernando Galvan MD, FACS, R.P.V.I. (2) Raynauds disease: Comment: 09/26/2003 right breast lumpectomy with sentinel node Dr. Sutton 11/08/2003 - right axillary lymph node biopsies Dr. Sutton Code(s): I73.00 - Raynaud's syndrome without gangrene Category: Medical Qualifiers: Raynaud?s-associated gangrene presence: without gangrene Qualified Code(s): I73.00 - Raynaud's syndrome without gangrene Plan: In short the patient may have an element of Raynaud's syndrome. I have discussed the pathophysiology with the patient, inclusive of spasming of the vessels and change in color of digits from white, red, and blue. We have discussed prevention inclusive of protection hand and feet at all times, reduction of caffeine intake, and reduction of stressors. Also this may date back to previous breast surgery from 2003. This may cause an element of lymphedema and may even exacerbate Raynaud's. At the current time the patient appears to be stable. Should this persist may need follow-up with Rheumatology and use a calcium channel steven. The patient will follow up with us on an as-needed basis. Orders: Orders US venous duplex LE Today I83.11 - Varicose veins of right lower extremity with inflammation Coding Level of Care Code New Pt Level 4 (61139) Diagnoses Varicose veins of right lower extremity with inflammation I83.11 Raynaud's disease without gangrene I73.00 Raynaud?s-associated gangrene presence: without gangrene
[2024-11-29 10:21] VITALS: BMI 17.6
--- OUTSIDE RECORDS SUMMARY | 2024-11-29 11:45 | XMS_ITS | Patient Health Record ---
[facility] Address [address] [place] [address] [place] [address] Care Team Providers Care Mixing Machine Attendant Name Role Phone Kirk COHEN, Xiang Primary Care Provider Juan Santoro Unavailable [phone] Allergies Allergen (clinical drug ingredient) Drug/Non Drug [...] W/U Status Risk Notes Problem Hammer toe (986066606) Hammer toe (735.4) Active confirmed Problem Ulcer of Other Part of Foot (707.15) Active confirmed Plan Of Treatment Pending Test Test Name Order Date 60930- Debride <25 sq cm 10/22/2013 Insurance Providers Payer Name Payer Address Payer Phone Subscriber Number Group Number Insured Name Patient Relationship to Insured Coverage Start Date Coverage End Date [facility] [address] [place] [address] [id number] Chantel Hamilton Self - patient is the insured Medical (General) History Medical History History ICD Code Cancer Headaches Surgical History Surgery Date(Month/Year) lumpectomy thyroidectomy
--- OUTSIDE RECORDS SUMMARY | 2024-11-29 11:45 | XMS_ITS | Clinical Summary ---
Author Organization [facility] Address [address] [place] [address] Care Team Providers Care Gelatin Plant Supervisor Name Role Phone Vania Matson MD Primary Care Provider [phone] Allergies Active Allergy Reactions Criticality Noted Date [...] Immunizations Name Administration Dates Next Due Covid-19 (Renkoo) Dilution Required 05/29/2020,0 05/08/2020 Family History Medical [...] age to complete this topic Care Teams Gelatin Plant Supervisor Relationship Specialty Start Date End Date Po, Vania Padilla MD [address] [place] [address] Dr [address] [facility] [place] [address] PCP - General Internal Medicine 11/12/16
--- OUTSIDE RECORDS SUMMARY | 2024-11-29 11:45 | XMS_ITS | Clinical Summary ---
Author Organization [facility] Address [address] [place] [address] Phone Care Team Providers Care Search Coordinator Name Role Phone Vania Matson MD Primary Care Provider [phone] Allergies Active Allergy Reactions Criticality Noted Date [...] overla pping sites of right female breast (CMS/[facility] V24, CMS/[facility] V28) 11/12/2016 Encounters Date Type Department Care Team Description 09/13/2024 11:45 AM EDT Office Visit [facility] Hematology Oncology [address] [place] [address] Eric Damon MD Malignant neoplasm of overlapping sites of right breast in female, estrogen receptor positive (CMS/HCC V24, CMS/[facility] V28) (Primary Dx) from Last 3 Months [...] PM EDT [facility]ment [facility] at [address] [phone] 03/15/2025 11:45 AM EST Office Visit [facility] Hematology Oncology [address] [place] [phone] Eric Damon MD [address] [place] [phone] Health Maintenance Due Date Last Done Comments Zoster Vaccines (2 of 2) 02/19/2019 019, 01/23/2016, 08/19/2015 Cholesterol Screening (Lipid Panel) 03/19/2022 Colorectal Cancer Screening: Colonoscopy 03/19/2022 Falls Risk Assessment 03/19/2022 Hepatitis C Screening 03/19/2022 Osteoporosis Screening (Bone Density Screening) 03/19/2022 Social Influencers of Health Screening 03/19/2022 COVID-19 Vaccine ( - season) 2023 01/16/2021, 05/29/2020, 05/08/2020 Depression Screening 04/11/2024 Influenza Vaccine (#1) 2024 , 02/07/2023, 01/31/2022, [...] AM EDT Narrative 12/14/2023 2:58 PM EDT [facility] Diagnostic Imaging Department [address] [place] [id number] Patient: GEORGI HAMILTON Mery LouB./Age/Sex: 1955 - 68 - F Unit#: [id number] Location/Status: SPDIMAM/REG CLI Mnemonic/Ordering Site: [facility] Ordering Physician: ERIC DAMON MD [facility] Screening Digital - 12/14/23 - 1134 Report Status:Signed EXAM: [facility] Screening Digital EXAM DATE AND TIME: 12/14/2023 11:44 AM HISTORY: Screening. Personal history of right breast carcinoma treated with lumpectomy in 2003 followed by radiation treatment. Prior left breast biopsy, pathology benign. Maternal cousin had breast carcinoma. COMPARISON: 12/09/22, 12/07/21, 12/05/20 TECHNIQUE: Bilateral digital breast tomosynthesis was performed in the CC and MLO projections. Computer aided detection with [employer] 3D 3.1 was employed. TISSUE DENSITY: c. [...] Procedure Note Briseida Crain MD - 01/25/2024 [facility] Diagnostic Imaging Department [address] [place] [address] Patient: GOMEZ HAMILTONRODRIGUE OliverosO.B./Age/Sex: 1955 - 68 - F Unit#: [id number] [facility] Ordering Physician: ERIC DAMON MD [facility] Screening Digital - 12/14/23 - 1134 Report Status:Signed EXAM: [facility] Screening Digital EXAM DATE AND TIME: 12/14/2023 11:44 AM HISTORY: Screening. Personal history of right breast carcinoma treatedwith lumpectomy in 2003 followed by radiation treatment. Prior left breastbiopsy, pathology benign. Maternal cousin had breast carcinoma. COMPARISON: 12/09/22, 12/07/21, 12/05/20 TECHNIQUE: Bilateral digital breast tomosynthesis was performed in the CCand MLO projections. Computer aided detection with [employer] 3D 3.1was employed. TISSUE DENSITY: c. The [...] Most Recently Relevant to Health Maintenance Insurance [facility] Care Teams Search Coordinator Relationship Specialty Start Date End Date Vania Matson MD [address] [place] [address] Dr [address] [facility] [place] [address] PCP - General Internal Medicine 11/12/16
== END 2024-11-29 10:42 | disposition home or self-care (01) ==
LOC: HO.HVS 10:16
PROVIDERS: PCP Internal Medicine; Visit Provider Surgery Vascular Surgery
DX: I83.11 Varicose veins of right lower extremity with inflammation (principal); I73.00 Raynaud's syndrome without gangrene
CPT/HCPCS: 99204

== ENCOUNTER → 2024-11-29 10:15 | Outpatient (BNVA) | payer MEDICARE, SELFPAY | PROVIDERS: PCP Internal Medicine; Visit Provider Surgery Vascular Surgery | DX: I83.11 Varicose veins of right lower extremity with inflammation (principal) | CPT/HCPCS: 99202 ==

== ENCOUNTER → 2024-11-30 14:34 | Outpatient (REF) | payer MEDICARE, SELFPAY ==
--- NOTE | 2024-11-30 14:37 | CA_ITS ---
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 Study Quality: Adequate ECG Rhythm: Sinus Conclusions: - 1. Normal LV ejection fraction of 60 65% with pseudonormal filling pattern 2. Normal cardiac valvular Dopplers 3. Normal RV systolic pressure but mildly elevated right atrial pressures 4. Small pericardial effusion Findings Left Ventricle Normal left ventricular size, thickness, and systolic function. The visually estimated ejection fraction is between 60-65%. Spectral Doppler is indicative of a pseudonormal filling pattern. Wall Motion Rest Echo Findings The inferoseptal wall, the basal inferior, basal anteroseptal, and mid anteroseptal segments are hypokinetic. All other scored wall segments showed normal motion. Right Ventricle Normal right ventricular cavity size and systolic function. Atria The left atrium is normal in size. Interatrial shunt cannot be excluded. The right atrium is normal in size. Aortic Valve Normal aortic valve structure and function. There is no aortic valve stenosis. There is no aortic valve regurgitation. Mitral Valve There is mild anterior and posterior mitral leaflet thickening. There is mild posterior mitral annular calcification. There is no mitral valve regurgitation. There is no mitral valve stenosis. Pulmonic Valve The pulmonic valve is likely normal. There is trace pulmonic valve regurgitation. Tricuspid Valve Normal tricuspid valve structure. There is mild tricuspid valve regurgitation. The right ventricular systolic pressure is 31 mmHg. Mildly elevated right atrial pressure. There is no evidence of pulmonary hypertension. Great Vessels All visible segments of the aorta are normal in size. The pulmonary artery was not well visualized. There is no dilatation of the ascending aorta measuring 3.00 cm. Venous The inferior vena cava is mildly dilated and collapses less than 50% with inspiration. Pericardium/Pleural There is a small circumferential pericardial effusion. Measurements 2D Linear Measurements IVSd: 0.80 0.6-0.9/0.6-1.0 cm LVIDd: 4.13 3.9-5.3/4.2-5.9 cm LVIDd Index: 2.65 2.4-3.2/2.2-3.1 cm/m2 LVIDs: 2.37 2.0-3.6 cm LVPWd: 0.69 0.7-1.1 cm LA Diam: 2.80 2.7-3.8/3.0-4.0 cm LAIDs Index: 1.79 1.5-2.3 cm/m2 LV Mass: 111.54 67-162/88-224 g LV Mass Index: 71.50 43-95/49-115 g/m2 LVOT Diam: 2.00 3.0+(-)1.3 cm 2D Systolic Function EF 4C: 56.00 >55% EF 2C: 70.20 >55% EF BiP: 65.50 >55% Mitral Valve MV Pk E: 0.91 MV PK A: 0.70 MV Decel Time: 171.00 E/A: 1.30 E'Lateral: 6.31 E'Medial: 5.33 E/E' Med: 17.00 E/E' Lat: 14.40 PHT: 50.00 MVA PHT: 4.40 Decel Summit: 5.31 Aortic Valve AoV Pk Brian: 0.89 AoV Pk Grad: 3.00 AILIN: 2.57 LVOT LVOT Pk Brian: 0.75 LVOT Mn Brian: 0.53 LVOT VTI: 0.16 LVOT Pk Grad: 2.00 LVOT Mn Grad: 1.00 LVOT Diam: 2.00 LVOT Area: 3.14 Diastolic Function MV Pk E: 0.91 MV Pk A: 0.70 E/A: 1.30 E'Medial: 5.33 E/E' Med: 17.00 E' Laterial: 6.31 E/E' Lat: 14.40 Right Ventricle TAPSE (mm): 18.60 TVS' Brian: 11.90 Tricuspid Valve TR Pk Brian: 2.40 TR Pk Grad: 23.00 RA Press: 8.00 RVSP: 31.00 Great Vessels Aorta Sinus of Valsalva: 3.30 2.0-3.5 cm Ao Asc: 3.00 2.1-3.4 cm Pulmonary Veins Pulm Vein S/D 0.90 Pulmonary Valve PV Pk Brian: 0.78 Peak PV Grad: 2.00 Updated in Other Vendor System with Status of Final Jose Mesa MD electronically signed on 12/01/2024 12:09:18 PM with status of Final
--- OUTSIDE RECORDS SUMMARY | 2024-11-30 14:37 | XMS_ITS | Patient Health Record ---
Author [facility] Address [address] [place] [address] [place] [address] Care Team Providers Care Jitterbug Operator Name Role Phone Kirk COHEN, Xiang Primary Care Provider Juan Santoro Unavailable [phone] Allergies Allergen (clinical drug ingredient) Drug/Non Drug [...] W/U Status Risk Notes Problem Hammer toe (035629411) Hammer toe (735.4) Active confirmed Problem Ulcer of Other Part of Foot (707.15) Active confirmed Plan Of Treatment Pending Test Test Name Order Date 09467- Debride <25 sq cm 10/22/2013 Insurance Providers Payer Name Payer Address Payer Phone Subscriber Number Group Number Insured Name Patient Relationship to Insured Coverage Start Date Coverage End Date [facility] [address] [place] [address] [id number] Chantel Hamilton Self - patient is the insured Medical (General) History Medical History History ICD Code Cancer Headaches Surgical History Surgery Date(Month/Year) lumpectomy thyroidectomy
--- OUTSIDE RECORDS SUMMARY | 2024-11-30 14:37 | XMS_ITS | Clinical Summary ---
Author Organization [facility] Address [address] [place] [address] Phone Care Team Providers Care Linecasting Machine Keyboard Operator Name Role Phone Vania Matson MD Primary Care Provider Allergies Active Allergy Reactions Criticality Noted Date [...] overla pping sites of right female breast (CMS/[facility] V24, CMS/[facility] V28) 11/12/2016 Encounters Date Type Department Care Team Description 09/13/2024 11:45 AM EDT Office Visit [facility] Hematology Oncology [address] [place] [address] Eric Damon MD Malignant neoplasm of overlapping sites of right breast in female, estrogen receptor positive (CMS/HCC V24, CMS/[facility] V28) (Primary Dx) from Last 3 Months [...] PM EDT [facility]ment [facility] at [address] [phone] 03/15/2025 11:45 AM EST Office Visit [facility] Hematology Oncology [address] [place] [phone] Eric Damon MD [address] [place] [phone] Health Maintenance Due Date Last Done Comments [...] AM EDT Narrative 12/14/2023 2:58 PM EDT [facility] Diagnostic Imaging Department [address] [place] [address] Patient: GEORGI HAMILTON Mery LouB./Age/Sex: 1955 - 68 - F Unit#: [id number] Location/Status: SPDIMAM/REG CLI Mnemonic/Ordering Site: [facility] Ordering Physician: ERIC DAMON MD [facility] Screening Digital - 12/14/23 - 1134 Report Status:Signed EXAM: [facility] Screening Digital EXAM DATE AND TIME: 12/14/2023 11:44 AM HISTORY: Screening. Personal history of right breast carcinoma treated with lumpectomy in 2003 followed by radiation treatment. Prior left breast biopsy, pathology benign. Maternal cousin had breast carcinoma. COMPARISON: 12/09/22, 12/07/21, 12/05/20 TECHNIQUE: Bilateral digital breast tomosynthesis was performed in the CC and MLO projections. Computer aided detection with [employer] 3D 3.1 was employed. TISSUE DENSITY: c. [...] Procedure Note Briseida Crain MD - 01/25/2024 [facility] Diagnostic Imaging Department [address] [place] [address] Patient: GOMEZ HAMILTONRODRIGUE OliverosO.B./Age/Sex: 1955 - 68 - F Unit#: [id number] Location/Status: [facility] Mnemonic/Ordering Site: [facility] Ordering Physician: ERIC DAMON MD [facility] Screening Digital - 12/14/23 - 1134 Report Status:Signed EXAM: [facility] Screening Digital EXAM DATE AND TIME: 12/14/2023 11:44 AM HISTORY: Screening. Personal history of right breast carcinoma treatedwith lumpectomy in 2003 followed by radiation treatment. Prior left breastbiopsy, pathology benign. Maternal cousin had breast carcinoma. COMPARISON: 12/09/22, 12/07/21, 12/05/20 TECHNIQUE: Bilateral digital breast tomosynthesis was performed in the CCand MLO projections. Computer aided detection with [employer] 3D 3.1was employed. TISSUE DENSITY: c. The [...] Most Recently Relevant to Health Maintenance Insurance [facility] Care Teams Linecasting Machine Keyboard Operator Relationship Specialty Start Date End Date Vania Matson MD [address] [place] [address] Dr [address] [facility] [place] [address] PCP - General Internal Medicine 11/12/16
--- OUTSIDE RECORDS SUMMARY | 2024-11-30 14:37 | XMS_ITS | Clinical Summary ---
Author Organization [facility] Address [address] [place] [address] Care Team Providers Care Comic Book Designer Name Role Phone Vania Matson MD Primary Care Provider [phone] Allergies Active Allergy Reactions Criticality Noted Date [...] Immunizations Name Administration Dates Next Due Covid-19 (WebNotes) Dilution Required 05/29/2020,0 05/08/2020 Family History Medical [...] age to complete this topic Care Teams Comic Book Designer Relationship Specialty Start Date End Date Po, Vania Padilla MD [address] [place] [address] [address] [facility] [place] [address] PCP - General Internal Medicine 11/12/16
== END ==
LOC: HO.CARD 14:34
PROVIDERS: PCP Internal Medicine; Visit Provider Internal Medicine
DX: I25.10 Atherosclerotic heart disease of native coronary artery without angina pectoris (principal)
CPT/HCPCS: 93306

== ENCOUNTER → 2024-11-30 14:37 | Outpatient (BNV) | payer MEDICARE, SELFPAY | PROVIDERS: PCP Internal Medicine; Visit Provider Internal Medicine Cardiovascular Disease | DX: I31.39 Other pericardial effusion (noninflammatory) (principal); I34.81 Nonrheumatic mitral (valve) annulus calcification | CPT/HCPCS: 93306 ==

== ENCOUNTER 2025-01-14 13:02 | Outpatient (REF) | payer MEDICARE, SELFPAY ==
--- NOTE | ~2025-01-14 | US_ITS ---
EXAMINATION: US LOWER EXTREMITY VENOUS (REFLUX EXAM), BILATERAL CLINICAL INFORMATION: Varicose veins of the lower extremity with inflammation COMPARISON: None. TECHNIQUE: Color flow triplex imaging and compression Doppler was performed to evaluate both the deep and the superficial systems bilaterally. To evaluate the superficial system, the examination was performed in the upright position. Color-flow Doppler ultrasound and compression ultrasound were utilized. In addition, maneuvers were utilized to demonstrate reflux. FINDINGS: 1. DEEP VENOUS ULTRASOUND OF THE RIGHT LOWER EXTREMITY: Common Femoral Vein: Compressible, normal respiratory variation and augmented flow. Femoral Vein: Compressible, normal color flow and augmentation. Popliteal Vein: Compressible, normal augmentation. Deep Reflux: There is no evidence of reflux in the deep system in either the common femoral vein, superficial femoral or the popliteal vein. 2. SUPERFICIAL ULTRASOUND WITH DOPPLER OF RIGHT LOWER EXTREMITY: GREAT SAPHENOUS VEIN: Saphenofemoral Junction: 0.3 cm; Reflux: 0 ms Proximal Thigh: 0.3 cm; Reflux: 0 ms Mid Thigh: 0.2 cm; Reflux: 0 ms Distal Thigh: 0.2 cm; Reflux: 0 ms At Knee: 0.2 cm; Reflux: 0 ms Below Knee/Proximal Calf: 0.1 cm; Reflux: 0 ms Mid Calf: 0.1 cm; Reflux: 0 ms Ankle/Distal Calf: 0.1 cm; Reflux: 0 ms Lateral accessory GREAT SAPHENOUS VEIN: Saphenofemoral Junction: 0.2 cm; Reflux: 0 ms Mid Thigh: 0.2 cm; Reflux: 0 ms SMALL SAPHENOUS VEIN: Drainage: Thigh extension Saphenopopliteal Junction: 0.4 cm; Reflux: 0 ms Mid calf: 0.2 cm; Reflux: 0 ms Distal: 0.2 cm; Reflux: 0 ms VEIN OF GIACOMINI: Size: 0.2 cm Reflux: 0 ms PERFORATORS: Location: Greater saphenous vein, mid calf Size: 0.1 cm Reflux: 0 ms VARICOSITIES > 3mm: Location: None Imaged 3. DEEP VENOUS ULTRASOUND OF THE LEFT LOWER EXTREMITY: Common Femoral Vein: Compressible, normal respiratory variation and augmented flow. Femoral Vein: Compressible, normal color flow and augmentation. Popliteal Vein: Compressible, normal augmentation. Deep Reflux: Mid femoral vein = 600 ms Popliteal vein = 2500 ms 4. SUPERFICIAL ULTRASOUND WITH DOPPLER OF LEFT LOWER EXTREMITY: GREAT SAPHENOUS VEIN: Saphenofemoral Junction: 0.5 cm; Reflux: 0 ms Proximal Thigh: 0.3 cm; Reflux: 0 ms Mid Thigh: 0.2 cm; Reflux: 0 ms Distal Thigh: 0.3 cm; Reflux: 0 ms At Knee: 0.2 cm; Reflux: 0 ms Below Knee/Proximl calf: 0.2 cm; Reflux: 0 ms Mid Calf: 0.1 cm; Reflux: 0 ms Distal Calf/Ankle: 0.1 cm; Reflux: 0 ms Lateral accessory GREAT SAPHENOUS VEIN: Saphenofemoral Junction: 0.3 cm; Reflux: 0 ms SMALL SAPHENOUS VEIN: Drainage: Thigh extension Saphenopopliteal Junction: 0.1 cm; Reflux: 0 ms Mid calf: 0.1 cm; Reflux: 0 ms Distal calf: 0.1 cm; Reflux: 0 ms VEIN OF GIACOMINI: Size: NA Reflux: NA PERFORATORS: Location: Greater saphenous vein, proximal thigh Size: 0.1 cm Reflux: 0 ms VARICOSITIES > 3mm: Location: None Imaged US/US venous duplex LE BI IMPRESSION: Right: No venous reflux is demonstrated. Left: Deep venous incompetence involving popliteal vein and borderline significant reflux in the mid femoral vein. Electronically signed by: Lio Purcell MD 01/14/2025 02:22 PM EDT
--- OUTSIDE RECORDS SUMMARY | 2025-01-14 15:22 | XMS_ITS | Patient Health Record ---
[facility] Address [address] [place] [address] [place] [address] Care Team Providers Care Dolly Driver Name Role Phone Kirk COHEN, Xiang Primary Care Provider Juan Santoro Unavailable [phone] Allergies Allergen (clinical drug ingredient) Drug/Non Drug [...] W/U Status Risk Notes Problem Hammer toe (969018245) Hammer toe (735.4) Active confirmed Problem Foot ulcer (94943330) Ulcer of Other Part of Foot (707.15) Active confirmed Plan Of Treatment Pending Test Test Name Order Date 71830- Debride <25 sq cm 10/22/2013 Insurance Providers Payer Name Payer Address Payer Phone Subscriber Number Group Number Insured Name Patient Relationship to Insured Coverage Start Date Coverage End Date [facility] [address] [place] [address] [phone] [id number] Chantel Hamilton Self - patient is the insured Medical (General) History Medical History History ICD Code Cancer Headaches Surgical History Surgery Date(Month/Year) lumpectomy thyroidectomy
--- OUTSIDE RECORDS SUMMARY | 2025-01-14 15:22 | XMS_ITS | Clinical Summary ---
Author Organization [facility] Address [address] [place] [address] Phone Care Team Providers Care Duck Farmer Name Role Phone Vania Matson MD Primary Care Provider [phone] Allergies Active Allergy Reactions Criticality Noted Date [...] right female breast (CMS/HCC V24, CMS/HCC V28) 11/12/2016 Encounters Date Type Department Care Team Description 12/14/2024 12:38 PM EDT - 12/14/2024 11:59 PM EDT Hospital [facility] [address] [address] Encounter for screening mammogram for breast cancer Discharge Disposition: Home or Self Care from Last 3 Months Surgical History Surgery Date Site/Laterality Comments THYROID SURGERY PROCEDURE:THYROID SURGERY BREAST LUMPECTOMY 04/11/2003 - 04/10/2004 Right STEREOTACTIC CORE BIOPSY 04/11/2003 - 04/10/2004 Right Medical History Medical History Date Comments Malignant neoplasm of overla pping sites of right female breast (CMS/HCC V24, CMS/HCC V28) 2003 DX:Malignant neoplasm of ove rlapping sites of right female breast (HCC) BRCA1 gene mutation negative Family History Medical History Relation Name Comments Cancer Brother skin Cancer Father lung Breast cancer Maternal Cousin x2 also lennox naya positive for BRCA No Known Problems Mother Relation Name Status Comments Brother Father (Age 63) Maternal Cousin Alive Mother (Age 86) Social History Tobacco Use Types Packs/Day Years Used Date Smoking Tobacco: Former Smokeless Tobacco: Never Alcohol Use Standard Drinks/Week Comments No 0 (1 standard drink = 0.6 oz pur e alcohol) Comments No Sex and Gender Information Value Date Recorded Sex Assigned at Not on file Legal Sex Female 6:17 AM EST Gender Identity Not on file Sexual Orientation Not on file Obstetrics History Para Term AB IAB SAB Ectopic Multiple Livin g Live Births 2 Last Filed Vital Signs Vital Sign Reading [...] Care Team (Late st Contact Info) Description 03/15/2025 11:45 AM EST Office Visit [facility] Hematology Oncology [address] [place] [phone] Eric Patiño MD [address] [place] [phone] 12/17/2025 1:00 PM EDT Appointment [facility] [address] [phone] Health Maintenance Due Date Last Done Comments Colorectal Cancer Screening: Colonoscopy 1955 Zoster Vaccines (2 of 2) 02/19/2019 019, 01/23/2016, 08/19/2015 Cholesterol Screening (Lipid Panel) 03/19/2022 Falls Risk Assessment 03/19/2022 Hepatitis C Screening 03/19/2022 Osteoporosis Screening (Bone Density Screening) 03/19/2022 Social Influencers of Health Screening 03/19/2022 Depression Screening 04/11/2024 COVID-19 Vaccine ( season) 2024 01/16/2021, 05/29/2020, 05/08/2020 Influenza Vaccine (#1) 2024 , 02/07/2023, 01/31/2022, Additional history exists Breast Cancer Screening 12/14/2026 12/15/19 25, 12/14/2023, 12/09/2022, Additional history exists RSV Immunization Adult Patients [...] Procedure Name Priority Date/Time Associated Diagnosis Comments MG MAMMO DIGITAL SCREENING W XU BILAT Routine 12/14/2024 1:14 PM EDT Encounter for screening mammogram for breast cancer from Last 3 Months Results * MG Mammo Digital Screening w Xu bilat (12/14/2024 1:14 PM EDT) Anatomical Region Laterality Modality Breast Bilateral Mammography 12/16/2024 9:55 AM EDT Impressions 12/16/2024 10:17 AM EDT Benign. BI-RADS CATEGORY: 2 - BENIGN RECOMMENDATION: Screening bilateral mammogram is recommended in 1 year. Mammo Location: [facility], [address] [place] [address], [id number], . -------- FINAL REPORT -------- Dictated By: Riki Mckinnon Dictated Date: 12/16/2024 09:55 ET Assigned Physician: Riki Mckinnon Reviewed and Electronically Signed By: Riki Mckinnon Signed Date: 12/16/2024 10:17 ET Workstation ID: [id number] Transcribed By: Self Edit Transcribed Date: 12/16/2024 09:55 ET Narrative 12/16/2024 10:17 AM EDT CLINICAL: 69 years old, Female, routine annual exam. COMPARISON: 12/14/2023 and 12/09/2022. TECHNIQUE: Bilateral MLO and CC views were obtained digitally with 3-D mammogram (digital breast tomosynthesis). Computer-aided detection was utilized in evaluation of this exam (CAD). FINDINGS: Stable postlumpectomy changes in the inferior right breast. There is no evidence of suspicious mass or architectural distortion. No worrisome calcifications are evident. There has been no significant change from prior exam(s). BREAST DENSITY: C - The breasts are heterogeneously dense which may obscure small masses. Procedure Note Riki Mckinnon MD - 12/16/2024 CLINICAL: 69 years old, Female, routine annual exam. COMPARISON: 12/14/2023 and 12/09/2022. TECHNIQUE: Bilateral MLO and CC views were obtained digitally with 3-Dmammogram (digital breast tomosynthesis). Computer-aided detection wasutilized in evaluation of this exam (CAD). FINDINGS: Stable postlumpectomy changes in the inferior right breast. There is no evidence of suspicious mass or architectural distortion. Noworrisome calcifications are evident. There has been no significantchange from prior exam(s). BREAST DENSITY: C - The breasts are heterogeneously dense which mayobscure small masses. IMPRESSION: Benign. BI-RADS CATEGORY: 2 - BENIGN RECOMMENDATION: Screening bilateral mammogram is recommended in 1 year. Mammo Location: [facility], [address] [place] [address], [id number], . -------- FINAL REPORT -------- Dictated By: Riki Mckinnon Dictated Date: 12/16/2024 09:55 ET Assigned Physician: Riki Mckinnon Reviewed and Electronically Signed By: Riki Mckinnon Signed Date: 12/16/2024 10:17 ET Workstation ID: [id number] Transcribed By: Self Edit Transcribed Date: 12/16/2024 09:55 ET us Self Referral Sppl IMG BI PROCEDURES Final Resul t from Last 3 Months Insurance [facility] Care Teams Duck Farmer Relationship Specialty Start Date End Date Vania Matson MD [address] [place] [address] [address] [facility] Medicine [place], [place] [phone] PCP - General Internal Medicine 11/12/16
--- OUTSIDE RECORDS SUMMARY | 2025-01-14 15:22 | XMS_ITS | Clinical Summary ---
Author Organization [facility] Address [address] [place] [address] Care Team Providers Care Fulfillment Associate Name Role Phone Vania Matson MD Primary Care Provider [phone] Allergies Active Allergy Reactions Criticality Noted Date [...] Immunizations Name Administration Dates Next Due Covid-19 (Mytrus) Dilution Required 05/29/2020,0 05/08/2020 Family History Medical [...] age to complete this topic Care Teams Fulfillment Associate Relationship Specialty Start Date End Date Po, Vania Padilla MD [address] [place] [address] [address] [facility] [place] [address] PCP - General Internal Medicine 11/12/16
== END 2025-01-14 13:03 | disposition home or self-care (01) ==
LOC: HO.US 13:02
PROVIDERS: PCP Internal Medicine; Visit Provider Surgery Vascular Surgery
DX: I83.11 Varicose veins of right lower extremity with inflammation (principal)
CPT/HCPCS: 93970

== ENCOUNTER → 2025-01-14 13:04 | Outpatient (BNV) | payer MEDICARE, SELFPAY | PROVIDERS: PCP Internal Medicine; Visit Provider Radiology Diagnostic Radiology | DX: I82.432 Acute embolism and thrombosis of left popliteal vein (principal) | CPT/HCPCS: 93970 ==

== ENCOUNTER 2025-01-17 12:47 | Outpatient (AMB) | payer MEDICARE, SELFPAY ==
[2025-01-17 12:57] VITALS: BMI 17.6
--- NOTE | 2025-01-17 12:57 | MHC.OFFVIS ---
Vital Signs 01/17/25 12:57 Height 5 ft 6.5 in Weight 111 lb BMI 17.6 Intake Visit Reasons: follow up US 01/14/25 Intake Note: Follow up US 01/14/25 for LE swelling, Left LE worse than the Right LE. Swelling worse at the end of the day. Pt also complains of discoloration to Right middle finger. Gerontology Aide Required: No Accompanied by: Self / Same As Patient Allergies oxycodone (Percocet) Allergy (Unknown, Verified 01/17/25 13:01) Unknown atorvastatin Adverse Reaction (Intermediate, Verified 01/17/25 13:01) neck pain rosuvastatin Adverse Reaction (Verified 01/17/25 13:01) myalgia HPI HPI follow up US 01/14/25: Details: The patient is a 69-year-old female presenting with venous insufficiency. She recently underwent an ultrasound on January 14, 2025, as part of her routine follow-up, which returned normal results. The patient reports discoloration of the hand, specifically noting that one finger turns black or purple and becomes numb, which is associated with the side of her lymph node. This discoloration may be reactive, particularly noticeable with changing weather conditions. She now presents for routine follow-up with venous insufficiency testing. [facility] Medical History Migraine Dysphagia History of colon polyps Blind left eye Thyroid nodule Carotid stenosis, right Left renal stone GERD (gastroesophageal reflux disease) Degenerative disc disease, cervical Hypercholesterolemia Pericardial effusion Breast cancer Surgical History History of esophagogastroduodenoscopy (EGD) History of shoulder surgery History of tonsillectomy History of vaginal hysterectomy History of lobectomy of thyroid H/O lymph node biopsy H/O lumpectomy Family History Mother Dementia Father Lung cancer metastatic to bone Maternal Uncle FH: prostate cancer Paternal Uncle FH: prostate cancer Maternal Uncle Myocardial infarct Brother Skin cancer Primary cutaneous large T-cell lymphoma Social History Household Members: Spouse Housing: House Do you presently have visiting nurse or other home services: No Alcohol intake: never Patient Tobacco Use Status: Former Tobacco user Tobacco use type: Cigarette Years Smoked: quit 30 years old e-Cigarette/Vaping Use: Never Used Second Hand Smoke Exposure: No Advance Directives Date on File: 01/28/20 service: No Current occupational status: retired 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 Cognitive needs: No Hearing needs: No Vision needs: Yes Review of Systems Const All systems reviewed & are unremarkable except as noted in HPI and below Reports no additional complaints ENT Reports Normal hearing present Card Denies chest pain, Denies chest pain at rest, Denies chest pain with activity and Denies pedal edema Resp Denies cough GI Denies abdominal pain Musc Denies abnormal gait, Denies muscle cramps and Denies radiating pain into limb Skin/Breast Denies skin ulcer and Denies wounds Neuro Reports Normal hearing present and Denies abnormal gait Psych Reports no additional complaints Physical Exam Vital Signs: BMI result Body Mass Index 17.6 Const General: cooperative, healthy appearing and comfortable Orientation/consciousness: oriented to person, oriented to place and oriented to time HEENT Head: Yes normal to inspection Neck Neck: Yes normal visual inspection Carotids: no bruits Chest Chest palpation & inspection: normal inspection of the chest Resp Effort & Inspection: normal respiratory effort and able to speak in complete sentences Auscultation: clear to auscultation bilaterally, no crackles, no rales, no rhonchi and no wheezes Cardio Rate: regular rate Rhythm: regular rhythm Heart sounds: S1 normal heart sound present and S2 normal heart sound present Bruits: no carotid bruits Peripheral pulses: Peripheral pulses 2+ throughout GI Inspection: Yes normal to inspection Skin Wounds: no wounds Hair: normal Neuro General: oriented to person, oriented to place and oriented to time Cranial nerves: Yes CN's II-XII intact bilaterally and Yes Normal hearing present Cognition (Neuro): normal cognition Motor exam (neuro): 5/5 motor strength present throughout Extrem Other: venous exam: +1 edema General: No clubbing, No cyanosis and Yes edema Psych Appearance: grossly normal Mental Status: mental status grossly normal Speech and movement: Normal speech and movement present Results Reviewed Results Reviewed: Brief summary of venous insufficiency testing is as follows: right great saphenous vein: negative right small saphenous vein: negative right accessory vein: none present left great saphenous vein: negative left small saphenous vein: negative left accessory vein: none present Please note there is no evidence of any venous aneurysms or significant tortuosity Assessment & Plan Assessment & Plan (1) Varicose veins of right lower extremity with inflammation: Code(s): I83.11 - Varicose veins of right lower extremity with inflammation Category: Medical Plan: Patient is negative for any significant venous disease. The current time would recommend continued conservative measures including compression, elevation and exercise. She will follow up with us on an as-needed basis. Thank you for allowing us to assist in her care. If there are any questions or concerns please do not hesitate to contact us. (2) Raynauds disease: Comment: 09/26/2003 right breast lumpectomy with sentinel node Dr. Sutton 11/08/2003 - right axillary lymph node biopsies Dr. Sutton Code(s): I73.00 - Raynaud's syndrome without gangrene Category: Medical Qualifiers: Raynaud?s-associated gangrene presence: without gangrene Qualified Code(s): I73.00 - Raynaud's syndrome without gangrene Plan: She may have an element of Raynaud's disease in particular related to her right upper extremity. At the current time no evidence of tissue loss or gangrene. Would manage this conservatively. Coding Level of Care Code Est Pt Level 4 (17082) Diagnoses Varicose veins of right lower extremity with inflammation I83.11 Raynaud's disease without gangrene I73.00 Raynaud?s-associated gangrene presence: without gangrene
== END 2025-01-17 13:29 | disposition home or self-care (01) ==
LOC: HO.HVS 12:48
PROVIDERS: PCP Internal Medicine; Visit Provider Surgery Vascular Surgery
DX: I83.11 Varicose veins of right lower extremity with inflammation (principal); I73.00 Raynaud's syndrome without gangrene
CPT/HCPCS: 99214

== ENCOUNTER → 2025-01-17 12:47 | Outpatient (BNVA) | payer MEDICARE, SELFPAY | PROVIDERS: PCP Internal Medicine; Visit Provider Surgery Vascular Surgery | DX: I83.11 Varicose veins of right lower extremity with inflammation (principal); I73.00 Raynaud's syndrome without gangrene | CPT/HCPCS: 99212 ==

== ENCOUNTER 2025-01-23 12:43 | Outpatient (AMB) | payer MEDICARE, SELFPAY ==
[2025-01-23 12:46] VITALS: BP 120/60; PULSE 81; TEMP 36.2; O2SAT 99; BMI 17.7
--- NOTE | 2025-01-23 12:46 | MHC.PC.OV ---
Vital Signs 01/23/25 12:46 Height 5 ft 6.5 in Weight 111 lb 2 oz BMI 17.7 BP 120/60 Blood Pressure Location Lt brachial Position Sitting Pulse 81 Pulse Source Pulse Oximeter Temp 97.1 F Temp Source Temporal Artery Scan Pulse Oximetry (%) 99 Oxygen Delivery Method Room Air Intake Visit Reasons: 3m follow up Allergies oxycodone (Percocet) Allergy (Unknown, Verified 01/23/25 12:51) Unknown atorvastatin Adverse Reaction (Intermediate, Verified 01/23/25 12:51) neck pain rosuvastatin Adverse Reaction (Verified 01/23/25 12:51) myalgia Tobacco use date assessed: 01/23/25 Fall risk assessment: No Falls in past year Last assessed Fall Risk: 01/23/25 Dental Screening Dental Screen Date: 01/23/25 Did you have a dental visit in the last 12 months?: No Did you have a dental problem in the last 6 months where you did not have access to dental care?: No Was dental information given to patient?: Patient has dentist [facility] Medical History Migraine Dysphagia History of colon polyps Blind left eye Thyroid nodule Carotid stenosis, right Left renal stone GERD (gastroesophageal reflux disease) Degenerative disc disease, cervical Hypercholesterolemia Pericardial effusion Breast cancer Surgical History History of esophagogastroduodenoscopy (EGD) History of shoulder surgery History of tonsillectomy History of vaginal hysterectomy History of lobectomy of thyroid H/O lymph node biopsy H/O lumpectomy Family History Mother Dementia Father Lung cancer metastatic to bone Maternal Uncle FH: prostate cancer Paternal Uncle FH: prostate cancer Maternal Uncle Myocardial infarct Brother Skin cancer Primary cutaneous large T-cell lymphoma Social History Household Members: Spouse Housing: House Do you presently have visiting nurse or other home services: No Alcohol intake: never Patient Tobacco Use Status: Former Tobacco user Tobacco use type: Cigarette Years Smoked: quit 30 years old e-Cigarette/Vaping Use: Never Used Second Hand Smoke Exposure: No Advance Directives Date on File: 01/28/20 service: No Current occupational status: retired 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 1. Little interest or pleasure in doing things: nearly every day 2. Feeling down, depressed, or hopeless: not at all 3. Trouble falling or staying asleep, or sleeping too much: not at all 4. Feeling tired or having little energy: not at all 5. Poor appetite or overeating: not at all 6. Feeling bad about yourself - or that you are a failure or have let yourself or your family down: not at all 7. Trouble concentrating on things, such as reading the newspaper or watching television: not at all 8. Moving or speaking so slowly that other people could have noticed. Or the opposite - being so fidgety or restless that you have been moving around a lot more than usual: not at all 9. Thoughts that you would be better off or of hurting yourself in some way: not at all Total score: 3 Source: Developed by Drs. Keith Mast, Deanna Rodriguez, Tk Reddy and colleagues, with an educational kelle from [employer]. Thrive Questionnaire Date Thrive assessed: 08/14/24 I am a: Patient What is your living situation today?: I have a steady place to live Within the past 12 months, did the food you bought not last and you didn't have the money to get more?: Never true Within the past 12 months, did you worry whether your food would run out before you got money to buy more?: Never true Do you have trouble paying for medicines?: No Do you have trouble getting transportation to medical appointments?: No Do you have trouble paying your heating and electricity bill?: No Do you have trouble taking care of your child, family member or friend?: No Do you have trouble with day-to-day activities such as bathing, preparing meals, shopping, managing finances, etc.?: No Are you currently unemployed and looking for a job?: No Are you interested in more education?: No Please select the resources that you would like help with: None Currently or been in a relationship where the following occur: No concerns reported THRIVE Score: 0 AUDIT C Alcohol Use Questionnaire (AUDIT-C) 1. How often do you have a drink containing alcohol?: Never 3. How often do you have six or more drinks on one occasion?: Never Total Score: 0 SANGITA-7 AMB Questionnaire SANGITA-7 Date SANGITA - 7 assessed: 06/14/24 Feeling nervous, anxious, or on edge: 0 = Not at all Not being able to stop or control worryin = Not at all Worrying too much about different things: 0 = Not at all Trouble relaxin = Not at all Being so restless that it is hard to sit still: 0 = Not at all Becoming easily annoyed or irritable: 0 = Not at all Feeling afraid as if something awful might happen: 0 = Not at all Total SANGITA-7 score (0-4 normal; 5-9 mild; 10-14 moderate; 15-21 severe): 0 Source: Developed by Drs. Keith Mast, Deanna Rodriguez, Tk Reddy and colleagues, with an educational kelle from [employer]. Physical exam (Primary Care) Vital Signs: Last Vital Signs Temp 97.1 F 01/23/25 12:46 Pulse 81 01/23/25 12:46 BP 120/60 01/23/25 12:46 Pulse Ox 99 01/23/25 12:46 Oxygen Delivery Method Room Air 01/23/25 12:46 BMI result Body Mass Index 17.7 Tobacco/Smoking Status: Tobacco use Status Tobacco use date assessed 01/23/25 01/23/25 12:52 Patient Tobacco Use Status Former Tobacco user 01/23/25 12:48 Tobacco use type Cigarette 01/23/25 12:48 e-Cigarette/Vaping Use Never Used 01/23/25 12:48 PHQ-9: PHQ-9 Score PHQ-9: Total score 3 01/23/25 12:58 Thrive Assessment: Date of Thrive Assessment Date Thrive assessed 08/14/24 01/23/25 12:48 Currently or been in a relationship where the following occur: No concerns reported Const General: alert; No acute distress Eyes Conjunctivae: conjunctivae normal Resp Auscultation: clear to auscultation bilaterally Cardio Rate: regular rate Rhythm: regular rhythm GI Inspection: Yes normal to inspection Extrem General: Yes normal to inspection and No edema Coding Level of Care Code Est Pt Level 4 (14831) Complex EM visit Add On G2211 Diagnoses Atherosclerotic cardiovascular disease I25.10 Hypercholesterolemia E78.00 Gastroesophageal reflux disease without esophagitis K21.9 Esophagitis presence: without esophagitis Infiltrating ductal carcinoma C50.919 Degenerative disc disease, cervical M50.30 Pulmonary emphysema, unspecified emphysema type J43.9 COPD type: emphysema Emphysema type: unspecified Assessment & Plan Assessment & Plan (1) Atherosclerotic cardiovascular disease: Code(s): I25.10 - Atherosclerotic heart disease of [place] coronary artery without angina pectoris Category: Medical Plan: Control the cholesterol, weight, blood pressure, (2) Hypercholesterolemia: Code(s): E78.00 - Pure hypercholesterolemia, unspecified Category: Medical Plan: Avoid fried foods, chicken skin, eggs, butter margarine, pastries and meat. Be it pork or beef they have a lot of cholesterol with the calcification seen on chest CT would advised getting the cholesterol better control. (3) GERD (gastroesophageal reflux disease): Comment: She will give trial to pantoprazole daily and hope she has better coverage Reflux precautions reviewed Code(s): K21.9 - Gastro-esophageal reflux disease without esophagitis Category: Medical Qualifiers: Esophagitis presence: without esophagitis Qualified Code(s): K21.9 - Gastro-esophageal reflux disease without esophagitis Plan: Avoid the foods that causes that usually spicy foods, tomato products, juices, coffee, soda and foods that your sensitive to. After eating do not lie down, allow 3-4 hours before in lie down. And keep the head of bed above 30 degrees to avoid the acid from going up. (4) Infiltrating ductal carcinoma: Comment: 2003 right breast lumpectomy and radiation and tamoxifen Code(s): C50.919 - Malignant neoplasm of unspecified site of unspecified female breast Category: Medical Plan: Continue to have mammogram and follow-up with the surgeon (5) Degenerative disc disease, cervical: Comment: MRI 2021 Code(s): M50.30 - Other cervical disc degeneration, unspecified cervical region Category: Medical Plan: Continue to be active (6) COPD (chronic obstructive pulmonary disease): Code(s): J44.9 - Chronic obstructive pulmonary disease, unspecified Category: Medical Qualifiers: COPD type: emphysema Emphysema type: unspecified Qualified Code(s): J43.9 - Emphysema, unspecified Plan: On Anoro and albuterol Plan History of Present Illness The patient is a 69-year-old female presenting for management of hyperlipidemia and gastroesophageal reflux disease. Hyperlipidemia has been a concern due to calcification observed on a recent chest CT scan, prompting the need for better cholesterol control. The patient continues to experience gastroesophageal reflux disease, reporting ongoing reflux pain. Patient was informed and verbally consented to the use of an ambient scribe for clinic note documentation during this visit. 1. Hyperlipidemia The plan includes improving cholesterol control due to calcification seen on chest CT. 2. Gastroesophageal Reflux Disease The patient continues to experience reflux pain, and management will focus on alleviating symptoms. Orders: Orders Lipid Panel Today E78.00 - Pure hypercholesterolemia, unspecified Comprehensive Met. Panel Today E78.00 - Pure hypercholesterolemia, unspecified CA stress test Today I25.10 - Atherosclerotic heart disease of [place] coronary artery without angina pectoris
--- OUTSIDE RECORDS SUMMARY | 2025-01-23 16:07 | XMS_ITS | Clinical Summary ---
Author Organization [facility] Address [address] [place] [address] Care Team Providers Care Crop And Soil Scientist Name Role Phone Vania Matson MD Primary Care Provider [phone] Allergies Active Allergy Reactions Criticality Noted Date [...] Immunizations Name Administration Dates Next Due Covid-19 ([employer]) Dilution Required 05/29/2020,0 05/08/2020 Family History Medical [...] age to complete this topic Care Teams Crop And Soil Scientist Relationship Specialty Start Date End Date Po, Vania Padilla MD [address] [place] [address] [address] [facility] [place] [address] PCP - General Internal Medicine 11/12/16
--- OUTSIDE RECORDS SUMMARY | 2025-01-23 16:07 | XMS_ITS | Patient Health Record ---
Author [facility] Address [address] [place] [address] [place] [address] Care Team Providers Care Classification Officer Name Role Phone Kirk COHEN, Xiang Primary Care Provider Juan Santoro Unavailable [phone] Allergies Allergen (clinical drug ingredient) Drug/Non Drug [...] W/U Status Risk Notes Problem Hammer toe ([id number]) Hammer toe (735.4) Active confirmed Problem Foot ulcer (31829716) Ulcer of Other Part of Foot (707.15) Active confirmed Plan Of Treatment Pending Test Test Name Order Date 59201- Debride <25 sq cm 10/22/2013 Insurance Providers Payer Name Payer Address Payer Phone Subscriber Number Group Number Insured Name Patient Relationship to Insured Coverage Start Date Coverage End Date [facility] [address] [place] [address] [id number] Chantel Hamilton Self - patient is the insured Medical (General) History Medical History History ICD Code Cancer Headaches Surgical History Surgery Date(Month/Year) lumpectomy thyroidectomy
== END 2025-01-23 13:19 | disposition home or self-care (01) ==
LOC: HO.HMCH 12:44
PROVIDERS: PCP Internal Medicine; Visit Provider Internal Medicine
DX: I25.10 Atherosclerotic heart disease of native coronary artery without angina pectoris (principal); E78.00 Pure hypercholesterolemia, unspecified; K21.9 Gastro-esophageal reflux disease without esophagitis; C50.919 Malignant neoplasm of unspecified site of unspecified female breast; M50.30 Other cervical disc degeneration, unspecified cervical region; J43.9 Emphysema, unspecified

== ENCOUNTER → 2025-01-23 12:43 | Outpatient (BNVA) | payer MEDICARE, SELFPAY | PROVIDERS: PCP Internal Medicine; Visit Provider Internal Medicine | DX: I25.10 Atherosclerotic heart disease of native coronary artery without angina pectoris (principal); E78.00 Pure hypercholesterolemia, unspecified; K21.9 Gastro-esophageal reflux disease without esophagitis; C50.919 Malignant neoplasm of unspecified site of unspecified female breast; M50.30 Other cervical disc degeneration, unspecified cervical region; J43.9 Emphysema, unspecified; E78.5 Hyperlipidemia, unspecified | CPT/HCPCS: 96127; 99212 ==

== ENCOUNTER → 2025-03-01 08:04 | Outpatient (REF) | payer MEDICARE, SELFPAY ==
--- NOTE | 2025-03-01 08:07 | CA_ITS ---
Acquisition Time: 2025-03-01 08:12:31 Total Exercise Time: 00:06:00 Test Indications: I25.10 Medications: SEE H&P Protocol: KIKO Max HR: 136 BPM 90% of Pred: 151 BPM Max BP: 142/70 mmHG Max Work Load: 7.0 METS Exercise stress test with exercise 6 mins of Kiko Protocol, achieving 90% MPHR, with reports of SOB, no chest pain, with isolated PACs, with normotensive response to exercise. without any EKG changes meeting criteria for ischemia. In recovery, breathing improved to baseline. Test reviewed with Dr. Coon. Referred By: Vania Matson Electronically Signed By: Babatunde Luna
--- OUTSIDE RECORDS SUMMARY | 2025-03-01 08:07 | XMS_ITS | Clinical Summary ---
Author Organization [facility] Address [address] [place] [address] Care Team Providers Care Rivet Thrower Name Role Phone Vania Matson MD Primary Care Provider [phone] Allergies Active Allergy Reactions Criticality Noted Date [...] Immunizations Name Administration Dates Next Due Covid-19 ([employer]) Dilution Required 05/29/2020,0 05/08/2020 Family History Medical [...] age to complete this topic Care Teams Rivet Thrower Relationship Specialty Start Date End Date Po, Vania Padilla MD [address] [place] [address] [address] [facility] [place] [address] PCP - General Internal Medicine 11/12/16
--- OUTSIDE RECORDS SUMMARY | 2025-03-01 08:08 | XMS_ITS | Patient Health Record ---
Author Organization [facility] Address [address] [place] [address] [place] [address] Care Team Providers Care Senior Energy Consultant Name Role Phone Kirk COHEN, Xiang Primary Care Provider Juan Santoro Unavailable [phone] Allergies Allergen (clinical drug ingredient) Drug/Non Drug [...] W/U Status Risk Notes Problem Hammer toe ([id number]) Hammer toe (735.4) Active confirmed Problem Foot ulcer (98924832) Ulcer of Other Part of Foot (707.15) Active confirmed Plan Of Treatment Pending Test Test Name Order Date 36800- Debride <25 sq cm 10/22/2013 Insurance Providers Payer Name Payer Address Payer Phone Subscriber Number Group Number Insured Name Patient Relationship to Insured Coverage Start Date Coverage End Date [facility] [address] [facility] [place] [id number] [phone] [id number] Chantel Hamilton Self - patient is the insured Medical (General) History Medical History History ICD Code Cancer Headaches Surgical History Surgery Date(Month/Year) lumpectomy thyroidectomy
== END ==
LOC: HO.CARD 08:04
PROVIDERS: PCP Internal Medicine; Visit Provider Internal Medicine
DX: I25.10 Atherosclerotic heart disease of native coronary artery without angina pectoris (principal)
CPT/HCPCS: 93017

== ENCOUNTER → 2025-03-01 08:07 | Outpatient (BNV) | payer MEDICARE, SELFPAY | PROVIDERS: PCP Internal Medicine | DX: I49.1 Atrial premature depolarization (principal); R06.02 Shortness of breath | CPT/HCPCS: 93016; 93018 ==

== ENCOUNTER 2025-03-04 09:48 | Outpatient (AMB) | payer MEDICARE, SELFPAY ==
--- NOTE | 2025-03-04 09:56 | A.OFFVIS_ITS ---
Vital Signs 3 03/04/25 10:03 Height 5 ft 6 in Weight 111 lb 1.808 oz BMI 17.9 Respiration 16 Pulse 78 Intake Visit Reasons: yearly breast exam Intake Note: Patient is seen in office for yearly breast exam. Pt c/o: denies any concerns regarding the breast mm:12/14/24 ([facility]) Manufacturing Software Engineer Required: No Customs And Border Protection Officer: Customs And Border Protection Officer Present Accompanied by: Self / Same As Patient Allergies oxycodone (Percocet) Allergy (Unknown, Verified 03/04/25 10:02) Unknown atorvastatin Adverse Reaction (Intermediate, Verified 03/04/25 10:02) neck pain rosuvastatin Adverse Reaction (Verified 03/04/25 10:02) myalgia Medication List - Last Reconciled 03/04/25 by Kilo Rangel MD acetaminophen (Tylenol) 325 mg PO QID PRN albuterol sulfate 90 mcg/actuation (ProAir HFA) 2 puffs inhalation Q6H PRN cyanocobalamin (vitamin B-12) 1,000 mcg PO DAILY cyclobenzaprine 10 mg PO TID meloxicam 15 mg PO DAILY methylcellulose (laxative) (Citrucel) 500 mg PO TID omeprazole 40 mg PO BID ondansetron HCl 4 mg PO DAILY PRN simvastatin 20 mg PO BEDTIME theophylline ER 300 mg PO DAILY topiramate (Topamax) 400 mg (4 x 100 mg) PO BEDTIME 90 days triamcinolone acetonide 0.5% 1 appl topical BID 14 days umeclidinium-vilanterol 62.5-25 mcg/actuation (Anoro Ellipta) 1 inh inhalation DAILY HPI Comments Details: 69-year-old female patient, former patient of Dr. Sutton presenting for a breast cancer follow-up examination. She was diagnosed with infiltrating ductal carcinoma, 1.2 cm, grade 2, ER NM positive, HER2 Maritza negative. She underwent a right breast lumpectomy with sentinel node biopsy in 2003. Two sentinel nodes were removed 1 of which was positive with a 0.25 mm micrometastasis (T1c N1miM0: Stage II). She subsequently underwent radiation therapy followed by dose dense AC and 5 years of tamoxifen. Her most recent mammogram in 12/16/2024 at [facility] revealed no mammographic evidence of malignancy (BI-RADS 2). Patient feels well and denies any ongoing breast symptoms. She denies any new breast symptoms. [facility] Medical History Migraine Dysphagia History of colon polyps Blind left eye Thyroid nodule Carotid stenosis, right Left renal stone GERD (gastroesophageal reflux disease) Degenerative disc disease, cervical Hypercholesterolemia Pericardial effusion Breast cancer Surgical History History of esophagogastroduodenoscopy (EGD) History of shoulder surgery History of tonsillectomy History of vaginal hysterectomy History of lobectomy of thyroid H/O lymph node biopsy H/O lumpectomy Family History Mother Dementia Father Lung cancer metastatic to bone Maternal Uncle FH: prostate cancer Paternal Uncle FH: prostate cancer Maternal Uncle Myocardial infarct Brother Skin cancer Primary cutaneous large T-cell lymphoma Social History Household Members: Spouse Housing: House Do you presently have visiting nurse or other home services: No Alcohol intake: never Patient Tobacco Use Status: Former Tobacco user Tobacco use type: Cigarette Years Smoked: quit 30 years old e-Cigarette/Vaping Use: Never Used Second Hand Smoke Exposure: No Advance Directives Date on File: 01/28/20 service: No 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 Cognitive needs: No Hearing needs: No Vision needs: Yes Review of Systems Const All systems reviewed & are unremarkable except as noted in HPI and below Physical Exam Vital Signs: Last Vital Signs Pulse 78 03/04/25 10:03 Resp 16 03/04/25 10:03 BMI result Body Mass Index 17.9 Const General: cooperative, no acute distress and well developed Nutritional Appearance: well nourished Orientation/consciousness: patient oriented x3 Limitations: no limitations HEENT Head: Yes normocephalic and Yes atraumatic Ears: hearing grossly normal bilaterally Neck Other: Palpable soft tissue mass noted at the angle of the mandible left side, mobile suggestive of a lymph node approximately 1.5 cm diameter Neck images: 2 1. Site of palpable nodule/node Chest Other: Left breast: No skin change, no nipple retraction, no nipple discharge, no palpable mass, no enlarged lymph nodes. Right breast: No skin change, no nipple retraction, no nipple discharge, no palpable mass, no enlarged lymph nodes Resp Effort & Inspection: normal respiratory effort, no audible wheezes, no cough and no respiratory distress GI Inspection: Yes normal to inspection Skin General skin exam: no rashes or lesions noted Wounds: no wounds Neuro Other: Mobility Assessment: 5 1. 3 meter assessment time (seconds) 2. Gait observations: Normal balance and gait General: patient oriented x3 Extrem General: Yes no clubbing, cyanosis or edema Assessment & Plan Assessment & Plan (1) Mass of left side of neck: Code(s): R22.1 - Localized swelling, mass and lump, neck Category: Medical (2) Infiltrating ductal carcinoma: Comment: 2003 right breast lumpectomy and radiation and tamoxifen Code(s): C50.919 - Malignant neoplasm of unspecified site of unspecified female breast Category: Medical Plan 69-year-old female patient returning for a routine breast examination following a personal history of right breast cancer, status post lumpectomy with needle localization, sentinel node biopsy. She subsequently underwent radiation therapy and dose dense AC followed by tamoxifen for 5 years. She continues to do well and denies any specific breast complaints. Examination today reveals no evidence of recurrence disease in either breast. She does have a palpable nodule she feels has increased in size in the left neck at the angle of the jaw. I requested an ultrasound of the soft tissue of the neck to further evaluate. She should continue monthly self examinations and return in 1 year for a routine breast examination. Follow-up mammogram is recommended in 1 year. She is welcome to call sooner for any concerns. Orders: Orders 2 US soft tiss head and/or neck Today R22.1 - Localized swelling, mass and lump, neck Coding Level of Care Code Complex visit Add On G2211 Diagnoses Mass of left side of neck R22.1 Infiltrating ductal carcinoma C50.919
[2025-03-04 10:03] VITALS: PULSE 78; RESP 16; BMI 17.9
--- OUTSIDE RECORDS SUMMARY | 2025-03-04 11:34 | XMS_ITS | Clinical Summary ---
Author Organization [facility] Address [address] [place] [address] Phone Care Team Providers Care Shut Off Worker Name Role Phone Vania Matson MD Primary Care Provider [phone] Allergies Active Allergy Reactions Criticality Noted Date [...] EDT Hospital Encounter [facility] [address] [address] Encounter for screening mammogram for [...] Description 03/15/2025 11:45 AM EST Office Visit [facility] Hematology Oncology [address] [place] [phone] Eric Patiño MD [address] [place] [phone] 12/17/2025 1:00 PM EDT Appointment [facility] [address] [address] Health Maintenance Due Date Last [...] year. Mammo Location: [facility], [address] [place] [address], [phone], . -------- FINAL REPORT -------- Dictated By: Riki Mckinnon Dictated Date: 12/16/2024 09:55 ET Assigned Physician: Riki Mckinnon Reviewed and Electronically Signed By: Riki Mckinnon Signed Date: 12/16/2024 10:17 ET Workstation ID: [id number] Transcribed By: Self Edit Transcribed Date: 12/16/2024 [...] year. Mammo Location: [facility], [address] [place] [address], [id number], . -------- FINAL REPORT -------- Dictated By: Riki Mckinnon Dictated Date: 12/16/2024 09:55 ET Assigned Physician: Riki Mckinnon Reviewed and Electronically Signed By: Riki Mckinnon Signed Date: 12/16/2024 10:17 ET Workstation ID: [id number] Transcribed By: Self Edit Transcribed Date: 12/16/2024 09:55 ET us Self Referral Spp[facility] IMG BI PROCEDURES Final Resul t from Last 3 Months Insurance [facility] Care Teams Shut Off Worker Relationship Specialty Start Date End Date Vania Matson MD [address] [place] [address] [address] [facility] [place], [place] [id number] PCP - General Internal Medicine 11/12/16
--- OUTSIDE RECORDS SUMMARY | 2025-03-04 11:34 | XMS_ITS | Clinical Summary ---
Author Organization [facility] Address [address] [place] [address] Care Team Providers Care Ginner Helper Name Role Phone Vania Matson MD Primary Care Provider [phone] Allergies Active Allergy Reactions Criticality Noted Date [...] Immunizations Name Administration Dates Next Due Covid-19 ([employer]) Dilution Required 05/29/2020,0 05/08/2020 Family History Medical [...] age to complete this topic Care Teams Ginner Helper Relationship Specialty Start Date End Date Po, Vania Padilla MD [address] [place] [address] [address] [facility] [place] [address] PCP - General Internal Medicine 11/12/16
--- OUTSIDE RECORDS SUMMARY | 2025-03-04 11:34 | XMS_ITS | Patient Health Record ---
Author Organization [facility] Address [address] [place] [address] [place] [address] Care Team Providers Care Beauty Advisor Name Role Phone Kirk COHEN, Xiang Primary Care Provider Juan Santoro Unavailable [phone] Allergies Allergen (clinical drug ingredient) Drug/Non Drug [...] W/U Status Risk Notes Problem Hammer toe (279339412) Hammer toe (735.4) Active confirmed Problem Foot ulcer (66336918) Ulcer of Other Part of Foot (707.15) Active confirmed Plan Of Treatment Pending Test Test Name Order Date 30248- Debride <25 sq cm 10/22/2013 Insurance Providers Payer Name Payer Address Payer Phone Subscriber Number Group Number Insured Name Patient Relationship to Insured Coverage Start Date Coverage End Date [facility] [address] [facility] [place] [phone] [id number] Chantel Hamilton Self - patient is the insured Medical (General) History Medical History History ICD Code Cancer Headaches Surgical History Surgery Date(Month/Year) lumpectomy thyroidectomy
== END 2025-03-04 10:19 | disposition home or self-care (01) ==
LOC: HO.HGS 09:49
PROVIDERS: PCP Internal Medicine; Visit Provider Surgery
DX: R22.1 Localized swelling, mass and lump, neck (principal); C50.919 Malignant neoplasm of unspecified site of unspecified female breast
CPT/HCPCS: 99214; G2211

== ENCOUNTER → 2025-03-04 09:48 | Outpatient (BNVA) | payer MEDICARE, SELFPAY | PROVIDERS: PCP Internal Medicine; Visit Provider Surgery | DX: Z12.39 Encounter for other screening for malignant neoplasm of breast (principal); C50.911 Malignant neoplasm of unspecified site of right female breast; R22.1 Localized swelling, mass and lump, neck | CPT/HCPCS: 99212 ==

== ENCOUNTER 2025-04-09 14:06 | Outpatient (AMB) | payer MEDICARE, SELFPAY ==
[2025-04-09 14:09] VITALS: BP 104/58; PULSE 83; O2SAT 100; BMI 18.3
--- NOTE | 2025-04-09 14:09 | A.OFFVIS_ITS ---
Vital Signs 04/09/25 14:09 Height 5 ft 6 in Weight 113 lb 8.609 oz BMI 18.3 BP 104/58 L Blood Pressure Location Lt brachial Position Sitting Pulse 83 Pulse Source Pulse Oximeter Pulse Oximetry (%) 100 Oxygen Delivery Method Room Air Intake Visit Reasons: pulmonary nodule Allergies oxycodone (Percocet) Allergy (Unknown, Verified 04/09/25 14:21) Unknown atorvastatin Adverse Reaction (Intermediate, Verified 04/09/25 14:21) neck pain rosuvastatin Adverse Reaction (Verified 04/09/25 14:21) myalgia HPI HPI pulmonary nodule: Details: 69-year-old lady, former 25 pack-year smoker, quit over 15 years prior with underlying history of prior breast cancer in her 40 status post resection, chemotherapy, and XRT followed for pulmonary nodules noted on screening CT chest and COPD.? She continues to use Anoro and albuterol MDI. She has stopped theophylline secondary to concerns for interaction with topiramate. She denies recent exacerbations. [facility] Medical History Migraine Dysphagia History of colon polyps Blind left eye Thyroid nodule Carotid stenosis, right Left renal stone GERD (gastroesophageal reflux disease) Degenerative disc disease, cervical Hypercholesterolemia Pericardial effusion Breast cancer Surgical History History of esophagogastroduodenoscopy (EGD) History of shoulder surgery History of tonsillectomy History of vaginal hysterectomy History of lobectomy of thyroid H/O lymph node biopsy H/O lumpectomy Family History Mother Dementia Father Lung cancer metastatic to bone Maternal Uncle FH: prostate cancer Paternal Uncle FH: prostate cancer Maternal Uncle Myocardial infarct Brother Skin cancer Primary cutaneous large T-cell lymphoma Social History Household Members: Spouse Housing: House Do you presently have visiting nurse or other home services: No Alcohol intake: never Patient Tobacco Use Status: Former Tobacco user Tobacco use type: Cigarette Years Smoked: quit 30 years old e-Cigarette/Vaping Use: Never Used Second Hand Smoke Exposure: No Advance Directives Date on File: 10/19/20 service: No Current occupational status: retired 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 Cognitive needs: No Hearing needs: No Vision needs: Yes Review of Systems Const Denies daytime sleepiness, Denies excessive sweating, Denies fatigue, Denies fever(s), Denies lethargy, Denies malaise, Denies night sweats, Denies snoring and Denies weight loss Eyes Denies blurry vision and Denies itchy eyes ENT Denies nasal congestion, Denies post nasal drip, Denies sinus pain, Denies sinus pressure and Denies other ( Thrush) Card Denies chest pain, Denies pedal edema, Denies dyspnea, Denies orthopnea and Denies paroxysmal nocturnal dyspnea Resp Denies cough, Denies hemoptysis, Denies excessive phlegm production, Denies dyspnea, Denies snoring and Denies wheezing GI Denies abdominal pain and Denies heartburn Musc Denies myalgias, Denies arthralgias and Denies joint swelling Skin/Breast Denies rash Neuro Denies memory loss and Denies seizure-like activity Psych Denies abnormal sleep pattern, Denies anxiety and Denies memory loss Endo Denies excessive sweating, Denies fatigue and Denies heat intolerance Enmanuel/Lymph Denies easy bruising Aller/Immun Denies itchy eyes, Denies seasonal rhinorrhea and Denies wheezing Physical Exam Vital Signs: Last Vital Signs Pulse 83 04/09/25 14:09 BP 104/58 L 04/09/25 14:09 Pulse Ox 100 04/09/25 14:09 Oxygen Delivery Method Room Air 04/09/25 14:09 BMI result Body Mass Index 18.3 Const General: no acute distress and alert Nutritional Appearance: not obese Orientation/consciousness: Other orientation findings ( oriented) HEENT Head: Yes atraumatic Eyes General: appearance normal, both eyes and all related structures Sclerae: sclerae normal EOM: EOMs intact bilaterally Neck Neck: Yes supple Lymphatic: no lymphadenopathy noted Resp Effort & Inspection: normal respiratory effort and no use of accessory muscles Auscultation: clear to auscultation bilaterally Cardio Rate: regular rate Rhythm: regular rhythm Heart sounds: no gallops, no murmurs and no rubs Skin General skin exam: other ( warm) Extrem General: No clubbing, No cyanosis and No edema Assessment & Plan Assessment & Plan (1) COPD (chronic obstructive pulmonary disease): Code(s): J44.9 - Chronic obstructive pulmonary disease, unspecified Category: Medical Qualifiers: COPD type: emphysema Emphysema type: unspecified Qualified Code(s): J43.9 - Emphysema, unspecified Plan: Suboptimal control on Anoro and albuterol MDI. Patient has been encouraged to restart theophylline. (2) Pulmonary nodules: Code(s): R91.8 - Other nonspecific abnormal finding of lung field Category: Medical Plan: Pulmonary nodules essentially stable on 2 year radiologic follow-up with CT chest. No further imaging follow-up is required. Coding Level of Care Code Est Pt Level 4 (08644) Diagnoses Pulmonary emphysema, unspecified emphysema type J43.9 COPD type: emphysema Emphysema type: unspecified Pulmonary nodules R91.8
--- OUTSIDE RECORDS SUMMARY | 2025-04-09 17:55 | XMS_ITS | Patient Health Record ---
[facility] Address [address] [place] [address] [place] [address] Care Team Providers Care Test Developer Name Role Phone Kirk COHEN, Xiang Primary Care Provider Juan Santoro Unavailable [phone] Allergies Allergen (clinical drug ingredient) Drug/Non Drug [...] W/U Status Risk Notes Problem Hammer toe (289429041) Hammer toe (735.4) Active confirmed Problem Foot ulcer (41231912) Ulcer of Other Part of Foot (707.15) Active confirmed Plan Of Treatment Pending Test Test Name Order Date 12227- Debride <25 sq cm 10/22/2013 Insurance Providers Payer Name Payer Address Payer Phone Subscriber Number Group Number Insured Name Patient Relationship to Insured Coverage Start Date Coverage End Date [facility] [address] [facility] [place] [phone] [id number] Chantel Hamilton Self - patient is the insured Medical (General) History Medical History History ICD Code Cancer Headaches Surgical History Surgery Date(Month/Year) lumpectomy thyroidectomy
--- OUTSIDE RECORDS SUMMARY | 2025-04-09 17:55 | XMS_ITS | Clinical Summary ---
Author Organization [facility] Address [address] [place] [address] Phone Care Team Providers Care Turpentine Distiller Name Role Phone Vania Matson MD Primary Care Provider [phone] Allergies Active Allergy Reactions Criticality Noted Date Comments Oxycodone-Acetaminophen Nausea Only 11/06/2016 Medications acetaminophen (TYLENOL) 500 mg tablet Take 1 tablet (500 mg total) by mouth every 6 (six) hours as needed. Active cholecalcifero l (VITAMIN D-3) 25 mcg (1,000 unit) tablet Take 1 tablet (1,000 Units total) by mouth daily. Active cyanocobalamin (VITAMIN B-12) 500 mcg tablet Take 2 tablets (1,000 mcg total) by mouth daily. Active fluticasone propionate (FLONASE) 50 mcg/actuation nasal spray spray/apply 1 spray in each nostril daily. Active omeprazole (PriLOSEC) [address] capsule Take 1 capsule (40 mg total) by mouth daily. Active simvastatin (ZOCOR) 5 mg tablet Take 4 tablets (20 mg total) by mouth at bedtime. Take 1 tablet (5 mg total) by mouth every night at bedtime. Active topiramate (TOPAMAX) 100 mg tablet Take 1 tablet (100 mg total) by mouth 2 (two) times a day. 3 tbs pm Active ascorbic acid (VITAMIN C) 500 mg chewable tablet Take 1 tablet (500 mg total) by mouth daily. Active multivitamin tablet Take by mouth. Active L. acidophilus/Bi fid. animalis (DAILY PROBIOTIC ORAL) Take by mouth. Active fluorometholon e (FML) 0.1 % ophthalmic suspension Active albuterol HFA (PROAIR HFA ; PROVENTIL HFA ; VENTOLIN HFA) 90 mcg/actuation inhaler Inhale 2 puffs by mouth every 6 (six) hours if needed for wheezing. Active cyclobenzaprin e (FLEXERIL) 10 mg tablet Take 1 tablet (10 mg total) by mouth 3 (three) times a day if needed for muscle spasms. Active hydrOXYzine HCL (ATARAX) 25 mg tablet Take by mouth. Active meloxicam (MOBIC) 15 mg tablet Take 1 tablet (15 mg total) by mouth 1 (one) time each day. Active methylcellulos e oral powder Take by mouth 1 (one) time each day. Active theophylline (OSMAN-24) 300 mg 24 hr capsule Take 1 capsule (300 mg total) by mouth 1 (one) time each day. Do not crush or chew. Active umeclidinium-v ilanteroL (Anoro Ellipta) 62.5-25 mcg/actuation inhaler Inhale 1 puff by mouth 1 (one) time each day. Active methocarbamoL (ROBAXIN) 500 mg tablet Take 1 tablet (500 mg total) by mouth 3 (three) times a day. 03/15/20 Discontinued rosuvastatin (CRESTOR) 20 mg tablet Take 1 tablet (20 mg total) by mouth daily. 03/15/20 Discontinued vitamin E mixed 400 unit capsule Take 1 capsule (400 Units total) by mouth daily. 03/15/20 Discontinued naproxen (NAPROSYN) 500 mg tablet Take 1 tablet (500 mg total) by mouth 2 (two) times a day with meals. 03/15/20 25 Discontinued Active Problems Problem Noted Date Diagnosed Date Malignant neoplasm of overla pping sites of right female breast 11/12/2016 Encounters Date Type Department Care Team Description 03/15/2025 11:45 AM EST Office Visit [facility] Oncology [address] [place] [phone] Eric Patiño MD Malignant neoplasm of overlapping sites of right breast in female, estrogen receptor positive (CMS/HCC V24, CMS/HCC V28) (Primary Dx) from Last 3 Months [...] Sign Reading Time Taken Comments Blood Pressure 120/63 03/15/2025 11:51 AM EST Pulse 86 03/15/2025 11:51 AM EST Temperature 36.4 C (97.6 F) 03/15/2025 11:51 AM EST Respiratory Rate - - Oxygen Saturation 100% 03/15/2025 11:51 AM EST Inhaled Oxygen Concentration - - Weight 49 kg (108 lb) 03/15/2025 11:51 AM EST Height 167.6 cm (5' 6 ) 10/05/2023 11:44 AM EDT Body Mass Index 17.43 10/05/2023 11:44 AM EDT Plan of Treatment Upcoming Encounters Date Type Department Care Team (Late st Contact Info) Description 09/12/2025 11:45 AM EDT Office Visit [facility] Hematology Oncology [address] [place] [address] Eric Patiño MD [address] [place] [address] 12/17/2025 1:00 PM EDT [facility]ointment [facility] [address] [address] Health Maintenance Due Date Last Done Comments Colorectal Cancer Screening: Colonoscopy 1955 Zoster Vaccines (2 of 2) 02/19/2019 019, 01/23/2016, 08/19/2015 Cholesterol Screening (Lipid Panel) 03/19/2022 Falls Risk Assessment 03/19/2022 Hepatitis C Screening 03/19/2022 Osteoporosis Screening (Bone Density Screening) 03/19/2022 Social Influencers of Health Screening 03/19/2022 Depression Screening 04/11/2024 COVID-19 Vaccine ( season) 2024 01/16/2021, 05/29/2020, 05/08/2020 Breast Cancer Screening 12/14/2026 12/15/19 25, 12/14/2023, 12/09/2022, Additional history exists RSV Immunization Adult Patients (1 - 1-dose 75+ series) 12/12/2030 DTaP,Tdap,and Td Vaccines (2 - Td or Tdap) 10/17/2033 10/18/2023 Pneumococcal Vaccine: 50+ Years Completed 12/24/2021, 12/26/2020 Influenza Vaccine Completed 01/15/2025, , 02/07/2023, Additional history exists HIB Vaccines Aged Out [...] for breast cancer from Last 3 Months or Most Recently Relevant to Health Maintenance Results * MG Mammo Digital Screening w Xu bilat (12/14/2024 1:14 PM EDT) Anatomical Region Laterality Modality Breast Bilateral Mammography 12/16/2024 9:55 AM EDT Impressions 12/16/2024 10:17 AM EDT Benign. BI-RADS CATEGORY: 2 - BENIGN RECOMMENDATION: Screening bilateral mammogram is recommended in 1 year. Mammo Location: [facility], [address] [place] [address], [id number], . -------- FINAL REPORT -------- Dictated By: Riki Mckinnon Dictated Date: 12/16/2024 09:55 ET Assigned Physician: Riki Mckinnon Reviewed and Electronically Signed By: Riki Mckinnon Signed Date: 12/16/2024 10:17 ET Workstation ID: [id number] Transcribed By: Self Edit Transcribed Date: 12/16/2024 [...] year. Mammo Location: [facility], [address] [place] [address], [id number], . -------- FINAL REPORT -------- Dictated By: Riki Mckinnon Dictated Date: 12/16/2024 09:55 ET Assigned Physician: Riki Mckinnon Reviewed and Electronically Signed By: Riki Mckinnon Signed Date: 12/16/2024 10:17 ET Workstation ID: [id number] Transcribed By: Self Edit Transcribed Date: 12/16/2024 09:55 ET us Self Referral Sppl IMG BI PROCEDURES Final Resul t from Last 3 Months or Most Recently Relevant to Health Maintenance Insurance [facility] Care Teams Turpentine Distiller Relationship Specialty Start Date End Date Vania Matson MD [address] [place] [address] [address] [facility] [place] [address] PCP - General Internal Medicine 11/12/16
--- OUTSIDE RECORDS SUMMARY | 2025-04-09 17:55 | XMS_ITS | Clinical Summary ---
Author Organization [facility] Prior to 09/08/[address] [place] [id number] Care Team Providers Care Orthopedics Teacher Name Role Phone Vania Matson MD Primary Care Provider [phone] Allergies Active Allergy Reactions Criticality Noted Date [...] age to complete this topic Care Teams Orthopedics Teacher Relationship Specialty Start Date End Date Po, Vania Padilla MD [address] [place] [address] [address] [facility] [place] [phone] PCP - General Internal Medicine 11/12/16
== END 2025-04-09 14:49 | disposition home or self-care (01) ==
LOC: HO.HPS 14:07
PROVIDERS: PCP Internal Medicine; Visit Provider Internal Medicine Pulmonary Disease
DX: J43.9 Emphysema, unspecified (principal); R91.8 Other nonspecific abnormal finding of lung field
CPT/HCPCS: 99214

== ENCOUNTER → 2025-04-09 14:06 | Outpatient (BNVA) | payer MEDICARE, SELFPAY | PROVIDERS: PCP Internal Medicine; Visit Provider Internal Medicine Pulmonary Disease | DX: J43.9 Emphysema, unspecified (principal); R91.8 Other nonspecific abnormal finding of lung field; Z79.899 Other long term (current) drug therapy; Z87.891 Personal history of nicotine dependence | CPT/HCPCS: 99212 ==